=== PATIENT | male | born 1995 | race Caucasian/White ===

== ENCOUNTER 2017-12-27 11:18 | Emergency (ER) | payer MEDICAID, SELFPAY ==
[2017-12-27 11:19] VITALS: BP 167/110; PULSE 70; RESP 18; TEMP 37.1; O2SAT 100; BMI 29.0
[2017-12-27] MEDS: 0.9% Normal Saline 1,000 ML 150 ML IV (12:16)
[2017-12-27] MEDS: proMETHazine 25 MG/ML Syringe 12.5 MG IV (12:16)
[2017-12-27 12:23] LABS: Absolute Lymphocyte Count 1.58 X10^3/ul (0.83-4.51); Absolute Neutrophil Count 4.3 X10^3/uL (2.0-7.7); Basophil# 0.03 X10^3/uL; Basophil% 0.5 % (0-1); Eosinophil# 0.04 X10^3/uL; Eosinophils% 0.6 % (0-5); Hemoglobin 15.6 g/dl (13.0-16.5); Lymphocyte # 1.58 X10^3/ul (4.0); Lymphocyte % 24.7 % (19-41); Mean Corp Hgb Conc 35.5 g/gl (32-36); Mean Corpuscular Hgb 30.4 pg (27.0-32.0); Mean Corpuscular Volume 85.8 fL (80-94); Mean Platelet Vol. 11.8 fl (6.2-12.0); Monocyte# 0.45 X10^3/uL; Neutrophil # 4.29 X10^3/uL (2.7-7.7); Platelet Count 148 K/mm3 (150-450); RBC Distribution Width SD 37.1 fl (35.1-43.9); Red Blood Count 5.13 M/mm3 (4.6-6.2); White Blood Count 6.4 K/mm3 (4.4-11.0)
[2017-12-27 12:27] LABS: POSITIVE COUNT NO; POSITIVE DIFFERENTIAL NO; POSITIVE MORPHOLOGY NO
[2017-12-27 12:36] LABS: Anion Gap 10 (5-15); BUN 11 mg/dL (7-18); BUN/Creat Ratio 11.3 RATIO (10-20); Calcium,Total 9.7 mg/dL (8.5-10.1); Chloride 107 mmol/L (98-107); Creatinine, Serum 0.98 mg/dL (0.70-1.30); EST Glomerular Filtration Rate 104 mL/min (>60); Est Glom Filt Rate - Afr Amer 126 mL/min (>60); Estimated Creatinine Clearance 112.41 ml/min; Glucose 89 mg/dL (74-106); Potassium 3.5 mmol/L (3.5-5.1); Sodium Level 141 mmol/L (136-145)
--- NOTE | 2017-12-27 13:36 | ED.DCSUM_ITS ---
- ER Visit Summary Date of Service: 12/27/17 Chief Complaint: Nausea and vomiting History of Present Illness: The patient is a 22 M reports nausea and vomiting that started this morning. He states he has this happen periodically. He denies fever. He denies pain. Patient does report a history of ADHD. He had seizures as a child. He does admit to marijuana use. Physical Examination: Vital signs on arrival reveal blood pressure 167/110, otherwise unremarkable. Patient's lying in bed no acute distress. Heart is regular rate and rhythm. Lung sounds are clear. Abdomen is soft nontender. Hypoactive bowel sounds are noted. Test Results: CBC and chemistry studies are significant only for platelet count of 148,000, otherwise values are all normal. Emergency Department Course and Treatment: Patient was given IV fluids and Phenergan. On repeat evaluation he feels significantly improved. Is able to tolerate p.o. and ambulated to the restroom and back without difficulty. He will be given a prescription for Phenergan at home as needed. Treatment Plan: [] Disposition: Discharge Impression: Vomiting, improved This note was generated with [employer] dictation software. It may contain incorrect words, spelling, and punctuation that were not noted in review of the chart prior to signing ED Disposition - Plan for ED Patient: Chief Complaint: Nausea/Vomiting Referrals: Oscar Landeros MD [Primary Care Provider] -
--- NOTE | 2017-12-27 13:36 | ED.DEP ---
ED Disposition - Plan for ED Patient: Disposition: Home or Assisted Living Chief Complaint: Nausea/Vomiting Instructions: ED Nausea Vomiting Prescriptions: proMETHazine tablet [Phenergan] 0.5 - 1 tab PO Q6H PRN PRN #10 tablet PRN Reason: Nausea Referrals: Oscar Landeros MD [Primary Care Provider] - As Needed
[2017-12-27 13:44] VITALS: BP 130/83; PULSE 64; RESP 20; O2SAT 98
== END 2017-12-27 13:46 | disposition home or self-care (01) ==
PROVIDERS: Emergency Provider Emergency Medicine; Family Provider Pediatrics; PCP Pediatrics
DX: R11.2 Nausea with vomiting, unspecified (principal); F12.90 Cannabis use, unspecified, uncomplicated; F90.9 Attention-deficit hyperactivity disorder, unspecified type
CPT/HCPCS: 80048; 85025; 96361; 96374; 99284; J7030; A4216

== ENCOUNTER 2018-05-24 11:56 | Emergency (ER) | payer MEDICAID, SELFPAY ==
[2018-05-24 11:57] VITALS: BP 122/84; PULSE 94; RESP 20; TEMP 37.1; O2SAT 97; BMI 23.7
--- NOTE | 2018-05-24 12:35 | ED.DCSUM_ITS ---
- ER Visit Summary Date of Service: 05/24/18 Chief Complaint: Vomiting, dehydration History of Present Illness: The patient is a 22 M with decreased appetite and more vomiting over the past 2 months. Patient went to urgent care. Due to concerns for dehydration he was sent to the ER. Patient has a possible history of anxiety with one prior visit for this. He does admit to marijuana use on a regular basis. There is been no recent change in the amount of marijuana he uses or his supplier in the past 2 months. Physical Examination: Vital signs are unremarkable. Patient sitting upright in bed. He is somewhat anxious. Heart is regular rate and rhythm. Lung sounds are clear. Abdomen is soft and nontender. Hypoactive bowel sounds are noted throughout. Test Results: CBC was a white count of 3.8 with predominant monocytes. Platelet count is slightly low at 119,000. Chemistry studies are unremarkable. Urinalysis normal. Urine tox screen is positive only for cannabinoids. Emergency Department Course and Treatment: Patient is given IV fluids and Phenergan. On repeat evaluation he feels significantly improved. We discussed stopping his drug use. He will be given Phenergan for home. Treatment Plan: [] Disposition: Discharge Impression: Vomiting, improved This note was generated with [employer] dictation software. It may contain incorrect words, spelling, and punctuation that were not noted in review of the chart prior to signing ED Disposition - Plan for ED Patient: Chief Complaint: Nausea/Vomiting Referrals: Oscar Landeros MD [Primary Care Provider] -
[2018-05-24] MEDS: 0.9% Normal Saline 1,000 ML 1000 ML IV (12:56)
[2018-05-24] MEDS: 0.9% Normal Saline 1,000 ML 150 ML IV (12:57)
[2018-05-24] MEDS: proMETHazine 25 MG/ML Syringe 12.5 MG IV (12:57)
[2018-05-24 13:08] LABS: Bacteria 0 SEEN /hpf (None Seen); Mucous, Urine 0 SEEN /hpf (<or=2+); Red Blood Cells-Urine 0 SEEN /hpf (0-5); Squamous Epithelial Cells - UA 0 SEEN /hpf (0-5); White Blood Cells 0 SEEN /hpf (0-5)
[2018-05-24 13:11] LABS: Color, Urine Yellow (Yellow); Glucose, Dipstick Normal (Normal); Ketone-Dipstick Negative (Negative); Leukocyte Esterase-Dipstick Negative /ul (Negative); Nitrite-Dipstick Negative (Negative); Occult Blood-Urine Negative /ul (Negative); Protein-Dipstick Negative (Negative); Urine Bilirubin Dipstick Negative (Negative); Urine Clarity Clear (Clear); Urine Urobilinogen Normal (Normal)
[2018-05-24 13:15] LABS: Absolute Lymphocyte Count 1.21 X10^3/ul (0.83-4.51); Basophil# 0.02 X10^3/uL; Basophil% 0.5 % (0-1); Eosinophil# 0.05 X10^3/uL; Eosinophils% 1.3 % (0-5); Hematocrit 42.5 % (40-54); Hemoglobin 14.9 g/dl (13.0-16.5); Lymphocyte # 1.21 X10^3/ul (4.0); Lymphocyte % 31.8 % (19-41); Mean Corp Hgb Conc 35.1 g/gl (32-36); Mean Corpuscular Volume 88.5 fL (80-94); Mean Platelet Vol. 12.1 fl (6.2-12.0); Monocyte# 0.48 X10^3/uL; Monocyte% 12.6 % (0-10); Neutrophil # 2.04 X10^3/uL (2.7-7.7); Neutrophil % 53.5 % (47-70); Platelet Count 119 K/mm3 (150-450); RBC Distribution Width CV 12.3 % (11.6-14.6); RBC Distribution Width SD 39.8 fl (35.1-43.9); White Blood Count 3.8 K/mm3 (4.4-11.0)
[2018-05-24 13:16] LABS: POSITIVE COUNT NO; POSITIVE DIFFERENTIAL NO; POSITIVE MORPHOLOGY NO
[2018-05-24 13:25] LABS: Anion Gap 7 (5-15); BUN 11 mg/dL (7-18); BUN/Creat Ratio 11.9 RATIO (10-20); Calcium,Total 9.3 mg/dL (8.5-10.1); Chloride 105 mmol/L (98-107); Creatinine, Serum 0.93 mg/dL (0.70-1.30); EST Glomerular Filtration Rate 110 mL/min (>60); Est Glom Filt Rate - Afr Amer 133 mL/min (>60); Estimated Creatinine Clearance 118.46 ml/min; Glucose 80 mg/dL (74-106); Potassium 4.1 mmol/L (3.5-5.1); Sodium Level 140 mmol/L (136-145)
[2018-05-24 13:33] LABS: Amphetamine Urine VISTA NEGATIVE (<1000 ng/mL); Barbiturate Urine VISTA NEGATIVE (< 200 ng/mL); Benzodiazepine Urine VISTA NEGATIVE (< 200 ng/mL); Cocaine Urine VISTA NEGATIVE (< 300 ng/mL); Ecstacy Urine VISTA NEGATIVE (< 500 ng/mL); Methadone Urine VISTA NEGATIVE (< 300 ng/mL); PCP Urine VISTA NEGATIVE (< 25 ng/mL); THC Urine VISTA POSITIVE (< 50 ng/mL); Vista UDS pH Range 7
--- NOTE | 2018-05-24 14:28 | ED.DEP ---
ED Disposition - Plan for ED Patient: Disposition: Home or Assisted Living Chief Complaint: Nausea/Vomiting Instructions: ED Nausea Vomiting Prescriptions: proMETHazine tablet [Phenergan] 25 mg PO Q6H PRN PRN #14 tablet PRN Reason: Nausea Referrals: Oscar Landeros MD [Primary Care Provider] - 1 Week
[2018-05-24 14:40] VITALS: PULSE 86; RESP 16; O2SAT 99
== END 2018-05-24 14:41 | disposition home or self-care (01) ==
PROVIDERS: Emergency Provider Emergency Medicine; Family Provider Pediatrics; PCP Pediatrics
DX: R11.2 Nausea with vomiting, unspecified (principal); F12.90 Cannabis use, unspecified, uncomplicated
CPT/HCPCS: 80048; 80307; 81001; 85025; 96361; 96374; 99283; J7030; A4216

== ENCOUNTER 2019-06-03 17:25 | Emergency (ER) | payer MEDICAID, SELFPAY ==
[2019-06-03 17:26] VITALS: BP 169/114; PULSE 80; RESP 22; TEMP 36.6; O2SAT 98; BMI 23.5
[2019-06-03 17:56] LABS: Absolute Lymphocyte Count 3.12 X10^3/uL (0.83-4.51); Absolute Neutrophil Count 2.9 X10^3/uL (2.0-7.7); Basophil# 0.06 X10^3/uL; Basophil% 0.9 % (0-1); Eosinophils% 1.5 % (0-5); Hematocrit 46.2 % (40-54); Hemoglobin 15.8 g/dL (13.0-16.5); Lymphocyte # 3.12 X10^3/ul (4.0); Mean Corp Hgb Conc 34.2 g/dL (32-36); Mean Corpuscular Hgb 31.1 pg (27.0-32.0); Mean Corpuscular Volume 90.9 fL (80-94); Mean Platelet Vol. 11.4 fl (6.2-12.0); Monocyte# 0.53 X10^3/uL; Monocyte% 7.8 % (0-10); NRBC Flagged by Analyzer 0 % (0-5); Neutrophil # 2.94 X10^3/uL (2.7-7.7); Neutrophil % 43.4 % (47-70); Platelet Count 180 K/mm3 (150-450); RBC Distribution Width CV 11.9 % (11.6-14.6); RBC Distribution Width SD 39.8 fl (35.1-43.9); Red Blood Count 5.08 M/mm3 (4.6-6.2); White Blood Count 6.8 K/mm3 (4.4-11.0)
--- NOTE | 2019-06-03 17:57 | ED.DCSUM_ITS ---
- ER Visit Summary Date of Service: 06/03/19 Chief Complaint: Possible seizure History of Present Illness: The patient is a 23 M who presents with possible seizure that occurred today. Patient states he was playing virtual reality game for approximately 1 hour. Patient states that later in the day. Patient states he remembers blacking out. Patient states he was confused when he woke up. Patient states he was having some generalized fatigue and aches after he woke up. Patient denies biting his tongue. Patient denies any incontinence of urine or stool. Patient states he did have some generalized paresthesias that have resolved. Patient states he also had some shortness of breath after this po ssible seizure that has since resolved. Physical Examination: Vital signs are stable except for slightly elevated blood pressure of 169/114 and a mild tachypnea of 22. Patient is afebrile. Patient is in no acute distress. Oral mucosa is pink and moist. Neck is supple. Trachea is midline. There is no JVD noted. Heart was regular rate and rhythm. Lungs are clear and equal bilateral. Abdomen is soft. Bowel sounds are normal. There is no tenderness. There is no guarding noted. Skin is warm dry. Cranial nerves II through XII are intact. There are no focal motor or sensory deficits noted. The remaining physical exam is within normal limits. Test Results: CBC and basic metabolic profile were obtained and were normal. Emergency Department Course and Treatment: Patient was given IV fluids. Patient is feeling better on reevaluation. Patient was instructed to follow-up with his primary care physician in 5 to 7 days. Patient was instructed to not drive until he follows up with his primary care physician. Patient understood and was agreeable with the plan. All questions were answered. Disposition: Discharge home Impression: 1. Syncopal episode 2. Possible seizure This note was generated with [employer] dictation software. It may contain incorrect words, spelling, and punctuation that were not noted in review of the chart prior to signing ED Disposition - Plan for ED Patient: Disposition: Home or Assisted Living Diagnosis: Syncope Instructions: SEIZURE, Recurrent [Adult] Referrals: Oscar Landeros MD [STAFF PHYSICIAN] - 3-5 Days Additional Instructions: Do not drive or operate machinery until you follow-up with your primary care physician
[2019-06-03] MEDS: 0.9% Normal Saline 1,000 ML 1000 ML IV (18:05)
[2019-06-03 18:07] LABS: Anion Gap 4 (5-15); BUN 23 mg/dL (7-18); Calcium,Total 9.4 mg/dL (8.5-10.1); Chloride 101 mmol/L (98-107); Creatinine, Serum 1.21 mg/dL (0.70-1.30); EST Glomerular Filtration Rate 80 mL/min (>60); Est Glom Filt Rate - Afr Amer 97 mL/min (>60); Estimated Creatinine Clearance 90.29 ml/min; Glucose 129 mg/dL (74-106); Potassium 4.3 mmol/L (3.5-5.1); Sodium Level 135 mmol/L (136-145)
[2019-06-03 19:42] VITALS: BP 122/62; PULSE 86; RESP 20; O2SAT 98
== END 2019-06-03 19:43 | disposition home or self-care (01) ==
PROVIDERS: Emergency Provider Emergency Medicine
DX: R55 Syncope and collapse (principal); M54.2 Cervicalgia; R06.00 Dyspnea, unspecified; F12.90 Cannabis use, unspecified, uncomplicated
CPT/HCPCS: 80048; 85025; 96360; 99285; J7030; A4216

== ENCOUNTER 2019-07-13 09:00 | Outpatient (RCR) | payer MEDICAID, SELFPAY ==
--- NOTE | 2019-07-13 09:10 | BH.SGPN.GN ---
Behaviors/Verbalizations/Mental Status: [] Eye contact is good. Motor activity is appropriate. Appearance is casual. Speech is Appropriate. Mood is anxious. Affect is congruent. Thoughts are linear and logical. No evidence of psychosis. Reviewed daily check in sheet and no reports of suicidal ideations or intent. Client Response/Progress/Benefit: [] Pt was an active participant in group discussion. This was pt's first day in IOP. He shared that he is here to work on his depression, anxiety, and anger. Shared that increased irritability and difficulty controlling his mood led to a suspension from work recently. He discussed his childhood and the impact that his father's anger and behaviors had on him. Reported limited support and friends. No progress noted. Group welcomed him which was beneficial. Will continue in IOP to prevent decompensation, stabilize mood, psych eval, and medication mgmt. Narrative Note: []
--- NOTE | 2019-07-13 10:07 | BH.SGPN.GN ---
Behaviors/Verbalizations/Mental Status: []Client alert and oriented, casually dressed and groomed. Eye contact good. Motor activity appropriate. Speech rapid, interrupting at times. Affect full, mood hypomanic, energetic. Thoughts linear, logical, no signs of hallucinations or delusions. Client Response/Progress/Benefit: []Client active participant during group discussion AEB client contributing to discussion. Client commented on the quote and shared ?we need our own coping skills when our supports aren?t there.? Client reported he has manipulated his supports by ?telling them things were worse than they were? because client wanted their attention. Client helped group brainstorm potential consequences of not having a support system. Group identified benefits of social support as building trust, less anxiety, less loneliness, different perspective, sense of purpose, resources, hope, and accountability. Client stated one cannot only rely on supports, though, one also needs to have internal coping skills. Client was engaged during the group activity and was providing positive encouragement. Appeared to benefit from gaining awareness of barriers that keep people from seeking social support as well as identifying the benefits of increasing support. Client?s first day in IOP. Will continue tx to prevent decompensation of mood symptoms, increase healthy coping skills, and maintain safety.
--- NOTE | 2019-07-13 11:08 | BH.SGPN.GN ---
Behaviors/Verbalizations/Mental Status: [Pt alert and oriented, eye contact good, casually dressed, motor activity appropriate, speech normal rate and tone, mood agitated, euthymic, congruent affect, thoughts linear and intact, no evidence of delusions or hallucinations.] Client Response/Progress/Benefit: [Client active participant AEB client contributing to discussion, listened attentively to others. Client worked with the group to make connections between barriers faced in the challenge activity and strategies for managing these barriers with utilizing social supports in daily life. Client reflected that a personal barrier in using his current supports is pushing people away or damaging trust out of anger. Client contributed to discussion about the different types of support and benefits different types of support can provide. Client worked with the group to identify strategies for improving development of new supports and better utilization of current supports. Client identified he would like to improve personal relationships by reaching out more to supports, asking for help, and talking honestly about his emotions because he would be able to improve overall emotion regulation as a result. Client seemed to benefit from identifying a type of support she would like to improve upon and creating actionable steps to promote follow-through. Client to continue IOP level of care to prevent decompensation, increase use of healthy supports, and implementing mood management skills.] Narrative Note: []
--- NOTE | 2019-07-13 13:52 | BH.MTP ---
Master Treatment Plan - Patient Information Program Physician:: Dr. Ginny Ackerman Primary Therapist:: VERITO Frazier - Psychiatric Diagnoses Psychiatric Diagnoses:: Bipolar disorder, not otherwise specified (F 31.9; generalized anxiety disorder; ADHD; marijuana and alcohol use disorders Diagnosis Code(s):: F 31.9 - Estimated LOS Estimated LOS (in weeks):: 6 Problem/Goal #1 - Problem/Goal #1 Stated Goal:: Stabilize anxiety level while increasing ability to function on daily basis through Intensive Outpatient Services as evidenced by reduction on DSM 5 anxiety scales. Description of Barriers: Client reports history of trauma and difficulties in managing emotions that continues to impact client. Reports from a young age he has learned to suppress his feelings until point of crisis which often results in anger outbursts via verbal outbursts, property damage, and arguments with supports. Client reports his relationship with his mother and ex has been strained as a result of poor emotion regulation and that this has impacted his ability to see his son as a result. Reports hx of polysubstance use behaviors and currently endorses using marijuana and alcohol however denies any other substance use. Current stressors including; financial stress, lack of social support, family stress, hx of impulsivity, feelings of hopelessness, worthlessness, difficulties managing his emotions, and lack of concentration. Client reports limited awareness of warning signs and triggers and difficulties in preventing himself from escalating when triggered. Client endorses numerous distorted thoughts that reinforce mental health symptoms and cause interpersonal relationship issues. Functional Impact: Client is a 23-year-old male with a history of Bipolar NOS, anxiety, depression, PTSD, anger management problems, and polysubstance use disorder. Client was referred to IOP by family due to worsening mood symptoms resulting in erratic behaviors, increased hopelessness/helplessness, depression, passive thoughts of , impulsiveness, and increased irritability. Due to intensity of mood symptoms, pt has been limited in amount of time able to see his son. Pt additionally reports he has experienced occupational issues due to lashing out in anger at work. Additionally, identified worsening depression and anxiety symptoms resulting in decreased use of supports, avoidance, increased marijuana use when feeling anxious, and increased panic sx. Reports he does not have consistent transportation which is an additional barrier. Reports history of lack of follow through. Pt has hx of armando and depression. Client currently endorses a depressed mood, lack of energy, lack of concentration, lack of motivation, avoidance behaviors, emotional dysregulation, irritability, isolation and inconsistent sleep. Client's symptoms are interfering with his social, occupation, and familial functioning. Goal Relevant Strengths/Supports: Client presents as kind, empathic, personable, and motivated to improve his ability to understand and manage intense emotions and anxiety. Client has shown ability to bounce back from adversity in the past which presents as a protective factor for treatment. Client has been in mental health treatment before and reported it was helpful but that he was not motivated to apply skills learned at the time however feels more motivated to do so now. - Objectives Objective #1 Stated Objective: Client will identify 2-3 anxiety triggers, physiological warning signs, and 2 coping skills to use when feeling anxious Interventions: Through individual and group counseling will provide patients with education on coping skills for anxiety and warning signs/triggers to anxiety. Discharge Criteria: Pt will be able to identify 2-3 triggers to anxiety, physiological warning signs of anxiety, and 2-3 coping skills to decrease anxiety. Target Date: 08/10/19 Review Date: 08/24/19 Problem/Goal #2 - Problem/Goal #2 Stated Goal:: Client will improve mood management and reduce impulsive behaviors, feelings of hopelessness, and anger outbursts due to Bipolar Disorder through Intensive Outpatient Program. Description of Barriers: Client reports history of trauma and difficulties in managing emotions that continues to impact client. Reports from a young age he has learned to suppress his feelings until point of crisis which often results in anger outbursts via verbal outbursts, property damage, and arguments with supports. Client reports his relationship with his mother and ex has been strained as a result of poor emotion regulation and that this has impacted his ability to see his son as a result. Reports hx of polysubstance use behaviors and currently endorses using marijuana and alcohol however denies any other substance use. Current stressors including; financial stress, lack of social support, family stress, hx of impulsivity, feelings of hopelessness, worthlessness, difficulties managing his emotions, and lack of concentration. Client reports limited awareness of warning signs and triggers and difficulties in preventing himself from escalating when triggered. Client endorses numerous distorted thoughts that reinforce mental health symptoms and cause interpersonal relationship issues. Functional Impact: Client is a 23-year-old male with a history of Bipolar NOS, anxiety, depression, PTSD, anger management problems, and polysubstance use disorder. Client was referred to [facility] by family due to worsening mood symptoms resulting in erratic behaviors, increased hopelessness/helplessness, depression, passive thoughts of , impulsiveness, and increased irritability. Due to intensity of mood symptoms, pt has been limited in amount of time able to see his son. Pt additionally reports he has experienced occupational issues due to lashing out in anger at work. Additionally, identified worsening depression and anxiety symptoms resulting in decreased use of supports, avoidance, increased marijuana use when feeling anxious, and increased panic sx. Reports he does not have consistent transportation which is an additional barrier. Reports history of lack of follow through. Pt has hx of armando and depression. Client currently endorses a depressed mood, lack of energy, lack of concentration, lack of motivation, avoidance behaviors, emotional dysregulation, irritability, isolation and inconsistent sleep. Client's symptoms are interfering with his social, occupation, and familial functioning. Goal Relevant Strengths/Supports: Client presents as kind, empathic, personable, and motivated to improve his ability to understand and manage intense emotions and anxiety. Client has shown ability to bounce back from adversity in the past which presents as a protective factor for treatment. Client has been in mental health treatment before and reported it was helpful but that he was not motivated to apply skills learned at the time however feels more motivated to do so now. - Objectives Objective #1 Stated Objective: Client will identify his specific physical and emotional warning signs and triggers for anger and learn at least 2-3 healthy ways to calm and manage anger, as shown by reduced DSM-5 scores. Interventions: Therapist will provide psychoeducation on anger via worksheets, educational videos, and individual sessions to increase pt understanding of underlying factors contributing to anger as well as warning signs and triggers commonly associated with irritability. Through individual therapy and group work will help client explore different anger management strategies and tools for increasing self-regulation. Discharge Criteria: Pt will have reached goal when able to identify 2-3 personal warning signs, triggers, and factors impacting ability to regulate emotions and report reduced anger sx due to implementing 2-3 calming and emotion regulation skills. Progress will be shown by reduction in irritability on DSM-5 scores. Target Date: 08/24/19 Review Date: 08/10/19 Objective #2 Stated Objective: Client will learn and implement 2-3 effective communication skills during times of conflict to empower client to communicate thoughts and feelings rather than supress emotions or escalate to crisis. Interventions: Therapist will teach client effective communication and conflict resolution skills and will provide homework for client to practice communication skills outside of sessions. Discharge Criteria: Client will have achieved this objective when reports experiencing increased ability to communicate effectively with supports during times of disagreement or conflict without shutting down or escalating to point of crisis. Target Date: 08/24/19 Review Date: 08/10/19
--- NOTE | 2019-07-13 13:53 | BH.COMM ---
Communication Note - Communication with Client Communication Note: Completed intake paperwork with client today. Completed the [place] Suicide Severity Scale (CSSR-S) Lifetime Recent to assess for suicidal risk. Client reports a history of 1 prior suicide attempt approximately 2 months ago in which client attempted to choke himself. This attempt was interrupted by self, as client reports he began to think of his son growing up without a father and aborted the denies any other history of self-injurious behaviors. Client reports history of preparatory behavior on one occasion approximately 2 years ago in which client reports writing a suicide note that was later found by his grandmother. Client denies any other preparatory or interrupted attempts. Client reported in the past month he has not had any wishes of , active suicidal ideations, plan, or intent. Client admits to a history of suicidal ideations with plan and access to methods but reports that his son and hopes for the future have kept him from following through on these thoughts. Client reports these thoughts have not occurred in two months. Client reported that in the past his wishes of have lasted for several hours but that with difficulty they are controllable. Client reported his son as primary reason to live. Per the CSSR-S client has a high risk for suicide given recent interrupted attempt. Client's suicidal lethality will be continued to be monitored throughout the program. Client willing to plan for safety. Client denies active SI, plan, or intent in the last month. Denies access to any weapons or stockpiles of medication. Client feels able to maintain safety.
--- NOTE | 2019-07-15 09:54 | BH.COMM_ITS ---
Communication Note - Communication with Client Communication Note: Pt was scheduled to attend IOP today and meet with psy chiatrist. He did not show. Therapist called and spoke to patient stating he was unable to make it to IOP today. Did not meet with psychiatry and will not be able to till 07/22/19.
--- NOTE | 2019-07-20 09:03 | BH.SGPN.GN ---
Behaviors/Verbalizations/Mental Status: [Eye contact is good. Motor activity is appropriate, some restlessness. Appearance is casual. Speech is Appropriate. Mood is depressed, anxious. Affect is constricted. Thoughts are linear and logical. No evidence of psychosis. Reviewed daily check in sheet and reports suicidal ideation at a rate of 2/5. Denies current plan or intent. This therapist will further assess for risk and safety plan with pt prior to end of IOP session on this date.] Client Response/Progress/Benefit: [Pt was receptive of session, actively listening throughout and providing some input throughout. Emotion for today is ?stressed? and he indicated that this was due to ongoing difficulties in regulating his emotions and managing current stressors in healthy ways. Pt appeared to benefit from the supportive feedback and suggestions provided by the group. Pt shared that despite current increased stress levels, he has been able to experience some mental health wins. Identified current wins as: getting through the entire weekend without any physical confrontations. Pt indicated this has been a problem for him recently and that he feels much more relieved to know he is capable of going through a whole weekend without escalating to point of crisis. Additional win identified as making small steps towards setting a boundary with his father, though declined to elaborate further. Pt displaying progress in levels of engagement and ability to begin internalizing tx materials discussed. Recommended continued tx to prevent decompensation, continue to increase emotion regulation, and further improve anxiety and anger management.] Narrative Note: []
--- NOTE | 2019-07-20 10:42 | BH.PSA ---
Past Psychiatric History - Treatment Hx Treatment History: Started at age 10 at [facility]. Couple psychiatric stays due to anger and would manipulate self out of situation. Fit setting really well. Never put effort into it before. Didn't realize how much self-care was important. Substance Use - Substance Substance Use Type: Alcohol - daily, 3-4 tall boys of vodka mixers 8%-14%., Benzodiazepines - xanax, Hallucinogens - acid to DMT. last use last week, mushrooms, Marijuana - daily, half ounce. since 18 as much as possible, Opiates, Prescribed - percocet, last year, Other - smoke CBD stuff. - Specific Drugs What specific drugs have you used?: seeing things that aren't there, paranoid, people judgng me or out to get me,
--- NOTE | 2019-07-20 15:12 | BH.MDN ---
Multi-Disciplinary Note - Note 60-min Individual Time Started:: 10:42 Date: 07/20/19 Purpose of session/treatment goals addressed:: Purpose of this session was to establish rapport with pt, gather additional information regarding pt current functioning, symptoms, and stressors impacting mental health. Additionally assessed for risk as pt indicated recent SI on daily symptom tracker and completed Safety Plan. Other topics included: development of treatment goals. Eye Contact:: Good Motor Activity:: Appropriate Appearance:: Casual Speech:: Pressured Mood:: Anxious Affect:: Congruent Thoughts:: Linear, Logical, No evidence of hallucinations/delusions noted Staff Interventions:: Therapist asked open ended and furthering questions to gather additional information regarding pt's symptoms, current stressors, as well as events leading to IOP admission. Worked with client to explore treatment goals to address in IOP tx. Therapist used strengths perspective to build rapport and help pt identify personal positives and resilience factors. Therapist used empathic responses to provide emotional validation. Further assessed for risk as pt indicated SI as a 2/5 during daily check-in. Applied IL techniques to explore coping strategies that have helped in the past and complete a Safety Plan. Provided psychoeducation on impact of substance use on mental health and application of healthy coping skills. Client Response:: Pt open to meeting with this therapist and remained actively engaged throughout session. He reports that his first day in IOP went well and that due to transportation issues was unable to get to [facility] group more than once last week. Pt indicates he had planned to walk to tx however has found this is much further than he had expected and was hoping the hispital would be able to assist in providing transportation. Therapist will contact transportation services in order to have this arranged. Pt indicated that since beginning the program, he is beginning to better understand how his current thoughts, feelings, and behaviors are impacting his mental health and ability to regulate his emotions. Pt shared that he has been struggling more with his mental health recently and noted experiencing worsening depression. Pt did well to identify triggers contributing to worsening depression which included isolation, decreased contact with his ex and their son, guilt, and feeling as though he lacks a strong sense of purpose. Pt shared that these factors as well as difficulties in managing symptoms of armando and anger is what led to IOP admission. Pt went on to describe spending much of his time over the past week either at work, sleeping, or playing video games. Displayed fair insight into the effects of remaining isolated and indoors on his mental health. He went on to indicated that he experiences his emotions he feels them very intensely and explained I dive right into them and recently I've been curling up in bed and holding hands with depression. Shared an increase in suicidal ideation over past week as a result of ruminating thoughts and guilt regarding the effects on his life of ongoing difficulties in managing anger and regulating his emotions. Pt shared that his issues with controling his anger response resulted in the end of his relationship and his ex havin reservations about pt seeing their son. Pt noted I don't really want to , but sometimes I just hate myself and my life so much that I don't want to be around anymore. Indicates no current plan or intent and expressed his son and ex continue to be protective factors for him. Willing to work with this therapist on completing a Crisis Safety Plan. Noted that although they have a tense relationship, he can rely on his mother or ex in times of crisis. Additionally, pt did well to identify copnig skills he can use when feeling increasingly depressed. Skills identified included: going for a walk, using his crystals, watching something funny, and music. Discussed pros and cons of continued substance use and impact of marijuana on mental health and ability to cope. Pt reports willingness to begin thinking about reducing frequency of use. Plans ot attend IOP on 07/22 to meet with psychiatry as well. Risks/Concerns:: Pt scores for SI on daily symptom tracker were rated as 2/5. Pt denies any active SI, plan, or intent at time of session. Future oriented and reports his son as major motivation for living. Willing to complete Safety Plan and indicates ability to maintain safety at this time. Pt aware of and willing to utilize the local crisis resources should he feel unable to maintain safety at any time. Progress Toward Goals/Plan:: Pt's second day of IOP, therefore no progress currently. Reports he is motivated to make improvements for his mental health and relationships with supports. Pt endorses a depressed and anxious mood, negative thinking, anhedonia, passive thoughts of , irritability, and limited supports. Identified goals for treatment as: improve ability to cope withanger, improve self-esteem, improve emotion regulation skills, and decrease depression. Will continue IOP to prevent decompensation, improve daily functioning, and increase mood stability. Time Stopped:: 12:10
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
--- NOTE | 2019-07-22 11:24 | BH.SGPN.GN ---
Behaviors/Verbalizations/Mental Status: [Client alert and oriented, casually dressed and appropriately groomed. Eye contact good. Motor activity appropriate. Speech within normal limits. Affect congruent, mood euthymic. Thoughts linear, logical, no signs of hallucinations or delusions. ] Client Response/Progress/Benefit: [Pt attentive throughout and actively participated in both experiential activity and discussion regarding SMART goal setting. Taking notes throughout. Pt engaged in using SMART goal criteria to create own mental health goal. Identified goal as: ?Decreasing negative self-talk by saying at least two positive affirmations daily?. Pt reported this goal will benefit him by improving his positive energy around others. Pt identified potential barriers to accomplishing goal to include: discouragement, not believing affirmations, forgetting, and shame/fear. Pt appeared to experience some difficulties in identifying solutions to overcome barriers. Able to identify some solutions with assistance and reports he will begin challenging himself to have a more positive attitude and remind himself of his motivations. Pt seemed to benefit from identifying a SMART goal and coming up with strategies to overcome potential barriers. Progress noted in pt ability to create a small relevant goal aimed at improving mental health symptoms and self-esteem. Pt to continue IOP to increase healthy coping skills, improve emotion regulation, and prevent decompensation.] Narrative Note: []
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
--- NOTE | 2019-07-22 15:29 | BH.DR.ITP ---
Initial Treatment Plan - Patient Information Visit Information: ADMISSION DATE: EXPECTED LOS: 4-6 weeks - Problems/Symptoms Problem #1:: Mood lability Symptom:: Depression, anger issues, rumination Problem #2:: ANxiety Symptom:: worry, rumination, panic attacks
--- NOTE | 2019-07-28 16:46 | BH.MDN ---
Multi-Disciplinary Note - Note 60-min Individual Time Started:: 09:36 Date: 07/28/19 Purpose of session/treatment goals addressed:: Purpose of this session was to asses current symptoms, and stressors impacting mental health, as well as progress towards treatment goals. Another purpose was to discuss self-care and concerns regarding lack of sleep. Additional topics: Anger management Eye Contact:: Good Motor Activity:: Restless Appearance:: Casual Speech:: Pressured, Tangential Mood:: Anxious, Depressed Affect:: Full, Labile Thoughts:: Linear, Logical, Racing, No evidence of hallucinations/delusions noted Staff Interventions:: Therapist asked open ended and furthering questions to gather additional information regarding pt's symptoms, current stressors, and treatment progress. Therapist used empathic responses and supportive feedback to provide emotional validation. Provided psychoeducation on hierarchy of needs and emotional stability. Reviewed self-care skills with pt. Applied GA techniques to promote change behaviors. Client Response:: Pt receptive of session, engaged throughout. Appearing to be overwhelmed /anxious AEB restlessness and difficulties in processing/verbalizing his thoughts. Pt expressed experiencing racing thoughts at time of session and indicated beliefs this is due to not sleeping in the past 24 hours. Shared feeling emotionally vulnerable as well which was further evidenced by Pt being emotionally labile throughout session. He had difficulties with remaining on topic and often jumped from subject to subject, expressed not hearing therapist responses or prompts due to difficulties in concentrating, and ranged between crying, laughing, and anger throughout discussion. Appeared aware of disorganized thought patterns and behavior and inquired as to whether his current characteristics were indicative of a manic episode. Pt and therapist explored further and discussed his usual symptoms of armando. He noted usually making impulsive decisions and becoming more irritated which he has not noted though has not been around others outside of Group recently. Pt shared that he is scheduled for work this afternoon and expressed fear that he will not be able to regulate his emotions and is more likely to become angry and aggressive or engage in impulsive behaviors given current emotional state. Pt shared wanting to call off sick and get some sleep so he does not escalate or make unhealthy choices;however, notes fear he will be reprimanded if he does so. Additionally, shared needing the money and is hesitant to call off for that reason. Receptive of discussing importance of meeting basic needs in making mental health progress and open to completing decisional balance on pros/cons of taking a mental health self-care day. Pt reported that although he needs the money, the risks of reacting irrational and out of anger are not worth it and Pt reported plans to go home to sleep and care for his own basic needs instead. Shared that he will take a shower, listen to music, and attempt to sleep before attending group tomorrow. Will discuss current sx with psychiatrist tomorrow. Risks/Concerns:: None noted. Denies SI, plan, or intent as of this date 07/20/19. Future-oriented and indicates plans to go home and sleep and attend IOP tx tomorrow. Progress Toward Goals/Plan:: Progress limited due to inconsistent attendance and diffiiculties in applying skills learned in IOP tx outside group environment. Pt continues to report sx consistent with depession and anxiety. Pt reports emotional instability and difficulties with regulation resulting in anger outbursts at work and with hs mother. Pt reports continued isolation and avoidance. Was receptive of identifying skills for reducing isolation. Pt willing to attempt more consisntly reaching out to supports and practicing calming skills. Recommended continue IOP tx to reduce anger and depression, improve emotional stability, and prevent decompensation. Time Stopped:: 10:45
--- NOTE | 2019-07-29 09:06 | BH.SGPN.GN ---
Behaviors/Verbalizations/Mental Status: [Client alert and oriented, casual dress, hygiene tended to. Eye contact fair to good. Motor activity appropriate. Speech within normal limits. Affect constricted, mood depressed and anxious. Thoughts linear, logical, no signs of hallucinations or delusions. Reviewed client?s symptom tracker, self-reports suicidal ideation as a 3/5 however denies plan or intent. This appears to be pt baseline. Pt met with IOP program psychiatrist and no immediate concerns were reported regarding safety. ] Client Response/Progress/Benefit: [Pt was an active participant in group discussion, providing input and openly processing with the group. Emotion for today is content as pt indicated successfully getting a few hours of sleep yesterday and is feeling much better this morning as a result. Pt initially struggled to identify two current mental health ?wins? or positives and indicated ?I haven?t done much since yesterday so I don?t really know what to say?. Was able to identify positives when provided with encouragement and guidance. Mental health positives included plans to begin piano lessons as a way of finding new healthier hobbies. Additional win identified as using positive self-talk to remind himself of the benefits of coming to IOP tx and encourage him to get here this morning rather than remain in bed. Pt noted that ongoing sleep issues continue to be a stressors as well as limited supports. He appeared to benefit from the structured supportive environment and noted feeling increased ability to connect with others in the program. Progress noted in pt ability to make healthy self-care decisions when experiencing dysregulation. Pt recommended continued IOP tx to continue to promote change behaviors, increase consistent skill application and emotion regulation, as well as prevent decompensation.] Narrative Note: []
--- NOTE | 2019-07-29 10:01 | BH.COMM ---
Communication Note - Communication with Client Communication Note: Pt met with psychiatrist today regarding medications. Refer to that note. Pt has been struggling recent sleep. After first group pt asked to leave early today to try tp sleep before he has to walk to work this afternoon. Allowed pt to leave IOP early.
--- NOTE | 2019-07-29 12:02 | PCM.BH.PN ---
Progress Note Progress Note: History of Present Illness/Interim History: [] Patient is a 23-year-old single male with a history of bipolar disorder and ADHD who was referred to the [facility] IOP program and is seen in follow-up. He feels that his mood is still not good. He describes himself is still irritable with passive suicidal thoughts on a regular basis. These are fleeting and he has no plan or active suicidal ideation. He also still gets passive homicidal ideation only when he is angry. He has had this for many years. He has not used any alcohol since he last saw me 1 week ago. He is only taken the lithium I prescribed him for the past 4 days. He is tolerating it well but has not had time to experience any improvement. His sleep remains somewhat poor. He was awake for 27 hours over the weekend at one point but he had 4 hours of sleep last night. He took 50 mg of the Seroquel I prescribed for him but it and he slept that night but it made him too groggy so he quit taking it. On discussion he says that taking only 25 mg of Seroquel was okay and did not make him too drowsy the next day so he agrees to try taking 125 mg Seroquel at bedtime. He has not used any marijuana since her last appointment. He is only using occasional CBD oil. He feels that he is benefiting from the IOP program and is learning valuable skills to help him deal with the stresses in his life. Current Psychiatric Medications: [] [place] carbonate ER 300 mg (patient started this only 4 days ago). Mental Status Examination: [] 23-year-old male who appears normal for stated age. He has minimal psychomotor agitation today. He has good eye contact and his speech is normal rate and rhythm and fluent with no pressure. He is casually dressed and groomed with good hygiene. His mood is depressed and he describes it as labile although it was not labile during the interview. Affect is full. Thought processes or are organized and goal-directed. Thought content: Fleeting suicidal ideation with no plan. He admits to fleeting passive homicidal ideation only when angry. No evidence of hallucinations or delusions. Judgment is limited but some present. Insight: Some present. Impulsivity moderate Diagnoses: [] [place] I: [] Bipolar 2 disorder (F 31.81); generalized anxiety disorder; ADHD; history of marijuana and alcohol use disorders. [place] II: [] Cluster B traits [place] III: [] Negative [place] IV:[]] Primary support and job issues Plan: [] She will continue the IOP program at [facility] as the support, education, structure, group and individual therapy will hopefully prevent exacerbations of the patient's symptoms. He felt safe during the interview and if at any time he does not feel safe he agrees to notify us at the IOP program or go to the emergency room. The risks, side effects, possible complications of the medication were discussed with the patient and he understands and accepts these. He agrees to increase his lithium carbonate ER to 2 tablets or 600 mg p.o. at bedtime. The patient is encouraged to maintain sobriety from marijuana alcohol and all other substances. I will see the patient in 2 weeks. In addition he will continue the quetiapine at 25 mg p.o. nightly in the hopes that this with the lithium will help improve his sleep. I will order a renal panel, TSH and lithium level at the next visit.
--- NOTE | 2019-08-06 16:22 | BH.COMM ---
Communication Note - Communication with Client Communication Note: Pt cancelled IOP group for this date however indicated plans to maintain scheduled individual appointment. Therapist contacted pt to remind his of scheduled session, however pt indicated he would no longer be able to meet with this therapist and would like to reschedule for next week.
[2019-09-02 09:06] VITALS: BP 104/73; PULSE 72; RESP 14
== END 2019-07-30 23:59 ==
LOC: BHIOP 09:00
PROVIDERS: Family Provider Family Medicine; PCP Family Medicine; Referring Provider Psychiatry & Neurology Psychiatry; Visit Provider Psychiatry & Neurology Psychiatry
DX: F31.81 Bipolar II disorder (principal); F41.1 Generalized anxiety disorder; F90.9 Attention-deficit hyperactivity disorder, unspecified type; F10.10 Alcohol abuse, uncomplicated; F12.10 Cannabis abuse, uncomplicated
CPT/HCPCS: 90792; 99214; H0035; H2012; H2020; 90837

== ENCOUNTER 2019-07-31 09:00 | Outpatient (RCR) | payer MEDICAID, SELFPAY ==
--- NOTE | 2019-07-31 09:05 | BH.SGPN.GN ---
Behaviors/Verbalizations/Mental Status: []Client alert and oriented, casually dressed and groomed. Eye contact good. Motor activity appropriate. Speech within normal limits. Affect full, mood euthymic. Thoughts linear, logical, no signs of hallucinations or delusions. Reviewed client?s symptom tracker, no risk for suicidal ideation, plan, or intent as of today. Client Response/Progress/Benefit: []Pt was an engaged participant in group discussion, providing input and openly processing with the group. Emotion for today is sad and energized. Pt identified a mental health positive as getting himself involved again in [employer] to increase his self-discipline and being involved in something he enjoys doing. Pt identified additional positive as reaching out to various people in his life to apologize for past choices he has made. Pt identified current stressor is having to work on so he won't get to spend time with his grandma, whom pt stated her health is declining significantly. Progress noted in pt applying healthy skills outside of tx environment. Continued IOP tx recommended to stabilize moods, improve emotional regulation, and prevent decompensation. Narrative Note: []
--- NOTE | 2019-07-31 10:15 | BH.SGPN.GN ---
Behaviors/Verbalizations/Mental Status: [Client alert and oriented, casually dressed and appropriately groomed. Eye contact good. Motor activity appropriate. Speech within normal limits. Affect congruent, mood euthymic. Thoughts linear, logical, no signs of hallucinations or delusions] Client Response/Progress/Benefit: [Client an active participant in group AEB providing relevant input, asking questions, actively listening, as well as taking notes throughout. Group worked together to identify barriers to making changes or taking action in their lives which included: fear of the unknown, guilt, catastrophizing, shame, pride, fear of leaving comfort zone, denial of need to change, and lack of motivation. Group also identified the benefits of change which included; improved relationships, increased trust, emotion regulation, increased confidence, improved ability to manage stressors, and personal growth. Client identified areas he would like to take back control over to include: relying on other?s opinions, healthy communication, anger management, and improved follow through on personal goals. Benefited from group through increased awareness of personal areas he wants to improve and benefits to taking action towards mental wellness. Progress noted in personal reflection of areas he would benefit from making changes for his mental health. Pt is recommended continued IOP level of care to improve anger and anxiety management, improve ability to cope with stressors, and prevent decompensation.] Narrative Note: []
--- NOTE | 2019-07-31 11:18 | BH.SGPN.GN ---
Behaviors/Verbalizations/Mental Status: []Client alert and oriented, disheveled appearance. Eye contact good. Motor activity appropriate. Speech rapid. Affect full, mood euthymic. Thoughts linear, logical, no signs of hallucinations or delusions. Client Response/Progress/Benefit: []Client was an active participant AEB client participating in discussion and working well in his small group. Client attentive and providing input to discussion of the different zones of taking action as well as the pros and cons of each. Client agreed with peers that it best to push oneself, but one does not want to burn out. Client completed worksheet in which he identified a problem area to focus on, a SMART goal to help work on problem area, and identify additional supports needed to be successful. Client identified he wants to stop fearing being alone and feel more confident. Client identified a small goal which is to set boundaries with at least one friend in his life this week. Client stated additional supports needed to be successful with goal include: setting aside time to talk with the friend, self-talk, and identifying his boundaries. Appeared to benefit from creating a small goal to help client reach out to supports and increase self-reflection. Will continue IOP level of care as client continues to experience erratic moods and sleep. Narrative Note: []
--- NOTE | 2019-08-03 11:06 | BH.COMM ---
Communication Note - Communication with Client Communication Note: Pt scheduled for IOP group on this date, however called and canceled with transportation services indicating he had obtained another ride. Pt did not show for IOP group scheduled for this date. This therapist followed upon and pt indicated I overselpt and just didn't feel like coming in when I woke up. Pt and therapist discussed importance of consistent attendance in order for pt to make progress towards mental health tx goals. Pt reports understanding and indicates plans to attend next scheduled date of 08/05/19. This therapist will call with a reminder prior to next scheduled appt.
--- NOTE | 2019-08-05 09:05 | BH.SGPN.GN ---
Behaviors/Verbalizations/Mental Status: []Client alert and oriented, casually dressed and groomed. Eye contact good. Motor activity restless. Speech within normal limits. Affect full, mood positive and agitated at times. Thoughts linear, logical, no signs of hallucinations or delusions. Reviewed client?s symptom tracker, no risk for suicidal ideation, plan, or intent Client Response/Progress/Benefit: []Pt listened attentively to others, provided some input when elicited by therapist. Pt identified emotion for today as grateful. Pt initially struggled with identifying mental health positives, but with coaching from therapist he was able to identify positives. Pt identified a mental health positive as attending IOP today because he reported he often struggles with follow through. Pt stated another mental health positive is being assertive to his boss by asking for his work schedule to be switched. Pt stated in the past he would have never asserted himself due to his anxiety being too severe. Pt identified current stressor as trying to figure out what he wants to do as a career. Pt seemed to benefit from support by peers. Pt progress is difficult to assess due to pt's inconsistent attendance to IOP. Pt to continue IOP to stabilize moods, improve emotional regulation and prevent decompensation. Narrative Note: []
--- NOTE | 2019-08-05 10:22 | BH.SGPN.GN ---
Behaviors/Verbalizations/Mental Status: []Client alert and oriented, casually dressed and groomed. Eye contact good. Motor activity appropriate. Speech loud, interrupting at times. Affect full, mood euthymic. Thoughts linear, logical, no signs of hallucinations or delusions. Client Response/Progress/Benefit: []Client was an active participant as evidenced by providing to discussion and listening attentively to peers. The group discussed the quote and how the emotion anger is not good or bad, but one can respond to anger in healthy or harmful ways. Client reported this group really connects with him because ?anger has really ruined my life.? Client worked with the group to define anger and its causes, as well as the internal and external impacts of anger. Group identified potential consequences of unhealthy management of anger to include: losing relationships, guilt, loss of job, increased stress, and worsening mental health symptoms. Client identified underlying factors of his anger which included jealousy, self-doubt, fear of being alone, shame, feeling overwhelmed, and being embarrassed. Client stated becoming violent, being condescending, getting quiet, and being ?noriega? are common responses he has when feeling angry. Benefited from group by increasing awareness of the negative impacts of unmanaged anger and underlying factors that contribute to his personal anger. Progress noted as client has been able to regulate his emotions during group sessions. Will continue IOP tx as client continues to endorse erratic moods, medication non-compliance, and difficulty managing emotions outside of IOP. Narrative Note: []
--- NOTE | 2019-08-05 11:30 | BH.SGPN.GN ---
Behaviors/Verbalizations/Mental Status: [Client alert and oriented, casual dress, hygiene tended to. Eye contact good. Motor activity appropriate. Speech within normal limits. Affect congruent, mood euthymic. Thoughts linear, logical, no signs of hallucinations or delusions.] Client Response/Progress/Benefit: [Pt remained an active participant throughout, AEB engagement in both activity and discussion potions of session. Pt did well to challenge himself to complete the group activity and incorporate anger management/emotion regulation skills in order to do so. Pt applied deep breathing and taking things in ?small baby steps?, as well as positive self-talk to prevent from becoming frustrated throughout. He worked with the group to process and identify the various barriers faced in the activity as well as skills used to successfully complete the task at hand without becoming dysregulated or overwhelmingly angry. Pt identified barriers impacting his own ability to better manage anger related symptoms which included: lack of awareness of triggers, all or nothing thinking, difficulties communicating when upset, and becoming overwhelmed. Pt appeared to benefit from discussion regarding potential benefits of anger and brainstorming with the group potential strategies for means of harnessing anger in healthy ways. Pt identified plans to begin more consistently applying deep breathing techniques to improve coping with anger related sx. Recommended continued IPO txt to reduce mental health sx, continue to promote mood management, and prevent decompensation.] Narrative Note: []
--- NOTE | 2019-08-10 07:35 | BH.MTP_ITS ---
Treatment Plan Review Date of Admission:: 07/13/19 Date of Treatment Plan Review:: 08/10/19 Patient's Response to Treatment:: Since beginning the IOP tx program, Pt has displayed variable levels of engagement in the treatment process. Pt has often struggled with consistent attendance which has been a result of various transportation issues, illness,as well as Pt report of ongoing depression causing him to isolate which has impacted attendance levels as well. Pt was previously set up with hospital transportation services, however due to issues in appropriately managing his emotions, specifically that of anger, Pt is no longer eligible for this service. Able to get transportation established with his insurance company. Due to issues in obtaining consistent transportation, Pt was unable to complete DSM-5 cross cutting analysis at time of review and therefore statistical analysis of symptom scores is not available. Throughout admission in program, Pt has done well to remain a well engaged and active participant. When in attendance, Pt does well to remain an active participant in both individual and group sessions, provides supportive feedback, and is able to make connections with material presented. Pt was originally receptive of beginning psychiatric medication for improved mood management. However, has not gone in for lab work to monitor Diagonal levels, reports he has not been taking medication as prescribed and often takes less or opts not take medication for several days at a time. Pt noted fear of the potential side effects as reason for inconsistent use of medication, program psychiatrist to review and offer alternatives to Diagonal. Pt additionally has had difficulties in completing homework provided during individual sessions. He has however done well to call to schedule his transportation independently which is progress for pt as he has a hx of difficulties in following through. Status of Current Problems and Symptoms: At admission, client reported symptoms of anxiety, depression, low self-esteem, poor motivation, mood swings, increased irritability, passive SI, impulsivity, panic, and interrupted sleep that interfered with daily functioning. At review client reported some improvement in mental health symptoms, however continues to struggle in a variety of areas. Pt has had limited progress in IOP tx since admission. Progress has been impacted by inconsistent attendance which has effected ability to retain and consistently practice application of materials learned. Pt has made some progress in reducing overall sx of depression and anxiety. At admission, pt reported experiencing suicidal ideation for extended periods of time daily, and now reports a decrease in frequency and intensity of sx. Denies active suicidal ideation and has been able to successfully complete a Crisis safety plan. Pt additionally was able to reduce Marijuana and alcohol use for an extended period of time, however recently reported returning to prior levels of use. Substance use levels may be impacting ability to effectively apply the emotional regulation skills he has learned as well. Client continues to report knowing what contributes to maintaining depressive sx such as isolating, avoidance, and continued substance use; however reports low levels of motivation to apply opposite action skills to begin breaking cycle of depression. Problem #1 Problem Name:: Mood lability Status of Goals:: Objective 1-partially complete. Client able to identify warning signs and triggers for mood changes, specifically anger and depression. He reports that other?s being disrespectful, his parents, and being confronted by others is often a trigger for his anger. Pt able to verbalize various healthy emotion regulation skills, though struggles significantly with application of skills learned as well as lack of motivation which in turn results in increased avoidance and feelings of guilt ultimately impacting mood control. Pt continues to struggle in reacting out of anger which has impacted relationships and ability to get needs met. Reports wanting to increase ability to practice self- compassion. Objective 2 ? partially complete. Client can identify various effective communication strategies for promoting improved healthy conflict resolution. Additionally, reports understanding how healthy communication can promote healthy relationships and indicates attempting to apply such skills to his encounters with supports; however, struggles to consistently do so when escalated or feeling his supports are not receptive. Team Recommendations:: Client encouraged to continue working on this treatment goal to reinforce healthy emotion regulation and communication skills to improve relationships, decrease impulsivity, and improve emotional stability. Continued IOP tx recommended for further progress in this area. Problem #2 Problem Name:: Anxiety Status of Goals:: Objective-1 partially complete. Client can identify anxiety related triggers and calming skills for managing these triggers. He can identify some potentially helpful coping mechanisms for reducing anxiety such as meditation, using his crystals to ground himself and recenter, positive self- talk, as well as thought challenging. At times pt struggles with consistent application of thought challenge skills and often experiences increased di fficulties when not practicing self-care activities which has been inconsistent for pt. Additionally, pt struggles with anxiety related to addressing consequences for his behaviors associated with times of increased mood dysregulation. Team Recommendations:: Client encouraged to continue working on this treatment goal to reinforce healthy coping skills and continue to further decrease symptoms of anxiety. Client and therapist currently working on thought challenging and practicing calming skills. Will continue IOP tx to maintain gains and continue to decrease anxiety related sx.
--- NOTE | 2019-08-10 09:08 | BH.SGPN.GN ---
Behaviors/Verbalizations/Mental Status: [Client alert and oriented, casual dress, hygiene tended to. Eye contact good. Motor activity appropriate. Speech within normal limits. Affect congruent, mood dysthymic. Thoughts linear, logical, no signs of hallucinations or delusions. Reviewed client?s symptom tracker, no signs of suicidal ideation, plan, or intent as of today. ] Client Response/Progress/Benefit: [Pt was an active participant in group discussion, providing input and able to connect with the group. Emotion for today is tired/saurabh as pt indicated having difficulties in waking up this morning. He shared that his current mental health wins include practicing opposite actions and getting to IOP tx despite low levels of motivation to do so. Additional win identified as increased time spend with his son over the weekend. Pt noted this is a win because it means his ex-girlfriend has been able to see positive improvements in mi mental health and is trusting him to spend more time around his son. Pt appeared to benefit from identifying specific areas of growth such as improved positivity and use of positive self-talk. Pt reports continued difficulties in consistent emotion regulation and reports easily feeding off of other?s emotions which has negatively impact him in the past. Continued IOP tx recommended to improve emotion regulation skills, continue to promote healthy change behaviors, and prevent decompensation.?] Narrative Note: []
--- NOTE | 2019-08-10 10:25 | BH.SGPN.GN ---
Behaviors/Verbalizations/Mental Status: []Client alert and oriented, casual in appearance. Eye contact fair. Motor activity appropriate. Speech within normal limits. Affect congruent, mood anxious. Thoughts linear, logical, no signs of hallucinations or delusions. Client Response/Progress/Benefit: []Client active participant as evidenced by client providing input throughout discussion and appeared to listen attentively to others. Client agreed with others that he experiences automatic negative thoughts. Client connected with the discussion about how distorted thought patterns can reinforce mental health symptoms. Client reported he connects with the distortion of mind reading and catastrophizing. Pt stated he can misinterpret another person's non-verbals and convince himself the other person is thinking negative things about him. Pt recognized mind reading and catastrophizing lead to increased anxious symptoms. Appeared to benefit from increasing awareness of cognitive distortions and how they can impact emotions and behaviors. Client to continue IOP to stabilize moods, increase healthy coping skills, and prevent decompensation. Narrative Note: []
--- NOTE | 2019-08-10 11:25 | BH.SGPN.GN ---
Behaviors/Verbalizations/Mental Status: []Client alert and oriented, casually dressed and groomed. Eye contact good. Motor activity appropriate. Speech within normal limits. Affect congruent, mood euthymic. Thoughts linear, logical, no signs of hallucinations or delusions. Client Response/Progress/Benefit: []Client responded well to session AEB participating in activity and contributing in group discussion. Client connected with the discussion about how distorted thought patterns can reinforce mental health symptoms. Client worked with the group on defining the various types of cognitive distortions and identifying how each distortion can negatively impact mental health. Client reported he has struggled with challenging his distortions in the past which has led to isolation and increased mental health symptoms. Client acknowledged that replacing distorted thoughts will take time and effort. Client worked with his small group as they practiced thought challenging by identifying distortions and replacing them with more realistic statements. Client attentive during psychoeducation on strategies to combat distortions. Client reported he plans to look at the evidence and look at the whole picture to help client challenge distorted thoughts. Appeared to benefit from increasing awareness of cognitive distortions and practicing thought challenging. Progress noted as client presents with improved focus and impulse control today. Will continue IOP tx to prevent decompensation and improve mood stability. Narrative Note: []
--- NOTE | 2019-08-12 09:52 | BH.COMM ---
Communication Note - Communication with Client Communication Note: Pt scheduled for individual and group sessions on this date. Pt did not show for scheduled appointments; however, returned this therapist's call and indicated being caught in bad weather out of town and was unable to attend as a result. Therapist discussed with pt the importance of consistent attendance in order to make most progress towards treatment goals. Pt indicates an understanding and expressed plans to attend all scheduled appointments for the next week. Pt and therapist agreed to schedule individual session for next saturday08/17/19.
--- NOTE | 2019-08-17 15:27 | BH.COMM ---
Communication Note - Communication with Client Communication Note: Pt scheduled for individual and group session on this date, however called to cancel scheduled appointments as he indicated having a viral infection. Pt discussed knowing importance of attending regularly to gain most benefit from program and expressed plans to reschedule for Saturday, 08/21, to make up for today's missed group. Pt willing to meet with this therapist for individual session on next scheduled group date, 08/19.
--- NOTE | 2019-08-19 09:28 | BH.COMM_ITS ---
Communication Note - Communication with Client Communication Note: no call/ no show for IOP today. Scheduled to see psych iatrist again today. This is 2nd no show/no call in a week. Called off ill on 08/17/19 as well. Will discuss further with therapist and treatment team regarding pt's attendance.
--- NOTE | 2019-08-24 08:12 | BH.MDN ---
Multi-Disciplinary Note - Note 45-min Individual Time Started:: 10:23 Date: 08/24/19 Purpose of session/treatment goals addressed:: The purpose of this session was to assess current symptoms, stressors, and treatment progress. Another purpose was to discuss readiness to change and attendance issues. Eye Contact:: Good Motor Activity:: Appropriate, Restless - AEB leg bouncing, pt figdeting in chair Appearance:: Casual Speech:: Appropriate Mood:: Anxious, Irritable, Depressed Affect:: Full, Other - laughing and joking despite reporting feelings of depression Thoughts:: Linear, Logical, Racing, No evidence of hallucinations/delusions noted Staff Interventions:: Therapist asked open-ended questions to elicit information regarding current symptoms, stressors, and tx goal progress. Provided empathic responses and supportive feedback as client discussed frustrations related to feeling stuck and difficulties in breaking cycle of depression. Therapist gently challenged pt use of distorted thinking patterns and applied CBT and HI approaches to aid pt in challenging external locus of control and creating small goals for opposite action, decreasing depression, and improving attendance. Assessed for further risk given pt report of SI during process group. Client Response:: Pt receptive of session and actively engaged in discussion throughout. He discussed feeling tired and depressed today as he continues to have difficulty with getting regular sleep and is often engaging in behaviors he reports knowing maintain depression cycle. Pt went on to indicate he has been staying in bed until at least noon and has not been able to go longer than 15 minutes without using Marijuana upon waking. Reports increased alcohol use as well. Pt went on to describe spending a majority of his day playing video games and is often isolated at home when he is not working. He displayed insight regarding the impact of current behaviors on preventing mental health progress, maintaining depression and anxiety, and impacting thoughts about self. Pt shared wanting to be successful and set a good example for his son but feels stuck in current pattern of behaviors. Therapist worked with Pt to challenge focus on external factors that present additional barriers such as his mother?s mental health, the coworkers he is scheduled to work with, and his ex-girlfriend limiting time Pt is able to spend with his son. Pt initially struggling to do so, but encouragement was willing to work with therapist on identifying factors contributing to his mental health symptoms within his control. Pt expressed knowing his substance use is a factor within his control and was able to identify various pros and cons of current use; however, reports he is unsure of his current readiness to change level of use. Additionally, Pt identified that ongoing isolation continues to be a major contributing factor in regard to depression levels that is within personal control. Indicated that he is willing to begin working on this area by increasing consistency of attendance in IOP program and worked with therapist on identifying strategies for doing so. Discussed benefits of consistent attendance in improving mood management and thought challenging skills as well. 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 Pt discussed beliefs that this will aid in improving self-confidence levels, increase feelings of personal progress, and reduce isolation behaviors. Risks/Concerns:: No risks or concerns noted. Pt indicated experiencing increased passive thoughts of in the past week though reports thoughts are not active and denies any plan or intent at this time. Pt is future oriented and indicates plans to attend group on and spend time working. Pt identified his son as major protective factor. Denies SI, plan, or intent as of this date 08/24/19. Reports his children as major protective factors, is future oriented, and willing to use local crisis resources should he feel unable to maintain safety at any point over the weekend. Progress Toward Goals/Plan:: Progress noted, refer above. Pt reports no longer experiencing overwhelming grief though continues to struggle with depression related sx at time. He indicates ongoing feelings of worthlessness, helplessness, and anxiety. Pt reports wanting to work on application of healthy coping skills however continues to struggle in consistently attending groups, maintaining sobriety, and reaching out to supports which may be impacting treatment progress. 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 Will continue in IOP tx to maintain safety, prevent decompensation, improve coping skills and use of effective communication strategies, and improve functioning. Time Stopped:: 11:16
--- NOTE | 2019-08-24 09:05 | BH.SGPN.GN ---
Behaviors/Verbalizations/Mental Status: [Eye contact is fair to good. Motor activity is restless AEB pt fidgeting in chair, bouncing leg. Appearance is casual. Speech is Appropriate rate and tone. Mood is anxious, depressed. Affect is congruent. Thoughts are linear and logical. No evidence of psychosis. Reviewed daily check in sheet and pt reports SI is at a rate of 3/5 which is typical for pt baseline. Denies any active plan, or intent and willing to meet with this therapist individually to further assess. ] Client Response/Progress/Benefit: [Pt responded well to session, engaged throughout. Initially noted not wanting to share with the group but upon becoming more comfortable was open to processing with the group. Pt indicated current emotion as ?depressed? and discussed that this is because he has been struggling with isolating and negative thoughts causing rumination and impacting self-worth. Pt shared knowing that coming to IOP tx is helpful but that he struggles in having the motivation to do so on a consistent basis. Pt appeared to benefit from supportive feedback and structure of group environment. Expressed connecting with fellow participants struggling with similar stressors and noted relating to difficulties in coping when feeling depressed. 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 Pt progress continues to be limited due to inconsistent attendance and difficulties in application of healthy coping and distress tolerance skills. He is recommended continued IOP tx to prevent decompensation, decrease depression, and improve emotion regulation.] Narrative Note: []
--- NOTE | 2019-08-24 11:13 | BH.SGPN.GN ---
Behaviors/Verbalizations/Mental Status: []Client alert and oriented, casually dressed and groomed. Eye contact good. Motor activity appropriate. Speech within normal limits. Affect congruent to topic being discussed, mood dysthymic. Thoughts linear, logical, no signs of hallucinations or delusions. Client Response/Progress/Benefit: []Client responded well to session as evidenced by client listening attentively to others and sharing when prompted. Client identified his warning signs for crisis and gained further awareness of his earliest warning signs. Client recognized that awareness of these warning signs can prevent further crisis and help client utilize healthy coping skills to break the cycle. Client created a crisis action plan to help client better manage warning signs for crisis. Client?s plan included coping skills such as: getting out of bed, do something productive, listen to music, reach out to friends, and workout. Client selected tangible items for crisis survival kit that will help his remember these crisis interventions. Client appeared to benefit from creating a crisis action plan and increasing his self-awareness. Client to continue IOP to prevent decompensation, improve mood stability and improve emotional regulation. Narrative Note: []
--- NOTE | 2019-08-24 12:52 | PCM.BH.PN ---
Progress Note Progress Note: History of Present Illness/Interim History: [] Patient is a 23-year-old single male with a history of bipolar disorder and ADHD who was seen in follow-up at the [facility] program. I last saw the patient about 3 weeks ago. He says that he only took the lithium that I prescribed for a few days and then he stopped it. He says that his sister is a nurse and is very knowledgeable and told him that lithium was not a good medication to take. The patient says that his mood is still not good. He said he is more depressed and angry now however. He feels this has been an improvement that he attributes to his skills learned in the program. He admits to being depressed but he denies any suicidal ideation, homicidal ideation or thought passive thoughts of . He has no plan. His sleep is now good and he is sleeping 6 to 7 hours a night. He said he is still using alcohol about 4-5 drinks of whiskey a week. He is still smoking marijuana a few times a day. He does not feel that his marijuana and alcohol use are harmful to him and he is not motivated to stop them. He is taking the quetiapine 25 mg p.o. nightly for sleep. He states that he is sleeping much better due to 25 mg only of Seroquel. Current Psychiatric Medications: [] Seroquel 25 mg p.o. nightly Mental Status Examination: [] Patient is a 23-year-old male who appears normal for stated age. He is casually dressed and groomed with good hygiene. He is cooperative during the interview and his speech is normal rate and rhythm. There is no pressure to his speech. His mood is depressed. His affect is euthymic to mildly constricted. His thought process: Is goal-directed and organized. His thought content: No evidence of suicidal ideation or homicidal ideation at this time. He has no plan. No thoughts of . No evidence of hallucinations or delusions. His judgment is limited. His insight: There is some present but poor in terms of his substance use issues. Impulsivity low to moderate. Diagnoses: [] [place] I: [] Bipolar 2 disorder (F 31.81); generalized anxiety disorder; ADHD; marijuana and alcohol use disorders [place] II: [] B traits [place] III: [] Negative [place] IV:[]] Very support and job issues Plan: [] Patient will continue the IOP program as the support, education, structure, individual and group therapy will hopefully prevent worsening of his symptoms which might require hospitalization. The risks, possible side effects and possible complications of the Latuda were discussed with the patient and he understands and accepts these. He understands he is to take Latuda with food or it will not be absorbed well. He is encouraged to decrease or eliminate his alcohol and marijuana use but he is not interested in doing this. A prescription was given to the patient for Latuda 20 mg p.o. with dinner. [place] safe during the interview and if it any time he does not feel safe he will notify us at the IOP program or go to the emergency room. I will see the patient in follow-up in 1 to 2 weeks. [place] labs were not ordered as the patient had only taken his lithium for a few days and then stopped it a while ago.
--- NOTE | 2019-08-28 08:39 | BH.COMM ---
Communication Note - Communication with Client Communication Note: Pt rescheduled planned group date for [facility] to be today, 08/28/19; however, indicated being unable to secure transportation. Therapist reiterated the importance of regular attendance on reducing isolation and improving mental health symptoms. Additionally reviewed transportation requirements for pt insurance including calling to schedule transportation within 48 hours in advance. Discussed plans to call and schedule transportation for next week on Saturday. Pt reports he will infotm this therapist of planned attendance dates at that time.
== END 2019-08-29 23:59 ==
LOC: BHIOP 09:00
PROVIDERS: Family Provider Family Medicine; PCP Family Medicine; Referring Provider Psychiatry & Neurology Psychiatry; Visit Provider Psychiatry & Neurology Psychiatry
DX: F31.81 Bipolar II disorder (principal); F41.1 Generalized anxiety disorder; F90.9 Attention-deficit hyperactivity disorder, unspecified type; F12.90 Cannabis use, unspecified, uncomplicated; Z72.89 Other problems related to lifestyle
CPT/HCPCS: H0035; H2012; H2020; 90834

== ENCOUNTER 2019-09-02 09:00 | Outpatient (RCR) | payer MEDICAID, SELFPAY ==
--- NOTE | 2019-09-02 09:05 | BH.SGPN.GN ---
Behaviors/Verbalizations/Mental Status: [] Eye contact is good. Motor activity is appropriate. Appearance is neat. Speech is Appropriate. Mood is anxious. Affect is congruent. Thoughts are linear and logical. No evidence of psychosis. Reviewed daily check in sheet and pt reports 3/5 for suicidal ideations and 1/5 for intent. Therapist notified. Client Response/Progress/Benefit: [] Pt participated at times during group discussion. Emotion for today is ecstatic. Shared that he had an increased work schedule of the holiday last weekend and did not spend much time with his family. Reports decreased anger and increased motivation. States I've been in a really good mood. Unable to identify any changes or skills that he is utilizing to account for mood change. 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 His check-in is not congruent with report of 3/5 for suicidal thoughts and 1/5 for intent. Pt is smiling, positive, and engaged with peers. Progress noted per pt report. Benefited from group support, encouragement, and feedback. Will continue in IOP to prevent decompensation, stabilize mood, and increase healthy coping. Narrative Note: []
--- NOTE | 2019-09-02 10:20 | BH.SGPN.GN ---
Behaviors/Verbalizations/Mental Status: []Client alert and oriented, casually dressed and groomed. Eye contact good. Motor activity appropriate. Speech within normal limits. Affect congruent, mood euthymic. Thoughts linear, logical, no signs of hallucinations or delusions. Client Response/Progress/Benefit: []Client responded well to session, attentive and engaged throughout. Client appeared to connect with the topic of fear of failure. Client agreed with peers that it is possible for failure to actually lead to success, but it takes challenging one?s perspective. Client nodded that he has struggled with fear of failure throughout his life. Group reported if one only focuses on past failures and mistakes it can lead to worsening mental health symptoms. Group identified the impacts of fear of failure on mental health which included: not trying, low self-esteem, depending too much on others, avoidance, hopelessness, and increased mental health symptoms. Client seemed to benefit from increased awareness of how fear of failure can impact mental health. Client will continue IOP tx to prevent mood dysregulation, decrease use of unhealthy coping skills, and improve daily functioning. Narrative Note: []
--- NOTE | 2019-09-02 11:21 | BH.SGPN.GN ---
Behaviors/Verbalizations/Mental Status: [Client alert and oriented, casually dressed and well groomed. Eye contact good. Motor activity appropriate. Speech within normal limits. Affect congruent, mood euthymic, anxious. Thoughts linear, logical, no signs of hallucinations or delusions.] Client Response/Progress/Benefit: [Client responded well to session, active participant. Client worked with the group to complete the challenge activity and shared that encouragement and support from fellow participants helped to accomplish the activity. Client completed the fear of failure worksheet and reported that fear of failure is keeping him from reaching his full potential. Reported barriers for overcoming fear of failure are toxic relationships, negative thoughts, isolation, and shutting down. Client shared he has been able to bounce back from setbacks in the past and the positive thing he has learned from past failures is that failure can motivate you to make better decisions moving forward. Client selected a goal to help overcome fear of failure. Client?s goal is to practice putting more effort into using healthy coping skills and taking deep breaths. Client appeared to benefit from gaining awareness and setting a goal to reduce fear of failure. Client showing progress in increased engagement in tx. Pt recommended continued IOP tx to improve ability to regulate emotions, decrease negativity, and increase application of skills learned.] Narrative Note: []
--- NOTE | 2019-09-02 12:26 | BH.COMM_ITS ---
Communication Note - Communication with Client Communication Note: On daily symptom tracker pt noted a 3/5 for suicidal i deations and 1/5 for suicidal intent and this therapist met to discuss. Pt denies any suicidal ideations, plan, or intent. States I don't know why I wrote that . Reports that he is feeling positive today and feels hopeful.
--- NOTE | 2019-09-04 08:57 | BH.MDN_ITS ---
Multi-Disciplinary Note - Note 45-min Individual Time Started:: 10:17 Date: 09/04/19 Purpose of session/treatment goals addressed:: The purpose of this session was to assess current symptoms, stressors, and treatment progress. Another purpose was to discuss readiness to warning signs for armando and create a weekend safety plan to prevent engaging in high risk behaviors. Eye Contact:: Intense Motor Activity:: Restless Appearance:: Neat, Casual Speech:: Pressured Mood:: Irritable, Depressed Affect:: Other - incongruent at pt reports everything is shit but is smiling and laughing throughout session. Thoughts:: Logical, Flight of ideas, No evidence of hallucinations/delusions noted Staff Interventions:: Therapist asked open-ended questions to elicit information regarding current symptoms, stressors, and tx goal progress. Provided empathic responses and supportive feedback as client discussed frustrations related to various stressors. Therapist gently challenged pt use of distorted thinking patterns, specifically absolutes and emotional reasoning. Applied CA techniques to work with pt on identifying his personal warning signs and common manic warning signs and symptoms, as well as create a weekend safety plan for armando. Client Response:: Pt receptive of session and actively engaged in discussion throughout. Pt laughing and smiling as he expressed that ?everything is shit?. He shared, ?I?m really good at putting on a front, I don?t like people seeing me struggle?. Pt expressed that ?this is how it always goes. It cool, I just figure it out?. Went on to discuss primary stressor as feeling lonely and wanting to have a physical connection. Pt was sitting on edge of seat, speaking more rapidly, and switching topics throughout conversation. Pt indicated that although he has various stressors, he feels like ?things will work themselves out?. Discussed having increased energy and believing he may be experiencing symptoms of hypomania. Discussed typically when he feels this way he uses substances, gets in fights, or experiences hypersexuality. Pt noted hypersexuality hx has lead to high risk behaviors via multiple partners or other unintended consequences due to differing of expectations of the relationship. Despite indicating insight regarding consequences of these behaviors, pt noted that he has already made plans to ?have a girl over? and ?I mean, I?ll probably go out and drink?. Open to discussing potential consequences of these behaviors and identified that by following through with them he may experience additional unintended consequences. Identified that having a sexual relationship my not be healthy for his own mental health as he is still struggling to move on from his relationship with his ex and could end up experiencing increased guilt as a result. Pt willing to work with therapist on creating a safety plan for the weekend to prevent engaging in high risk behaviors. Pt identified that he could put on music that is calming and finish redecorating his living room. Additionally, identified that going for a run would help to release built up energy. He indicated also being interested in beginning creative writing as when he is manic he experiences racing thoughts. Receptive of completing a writing prompt over the weekend. Risks/Concerns:: No risks or concerns for safety noted. Pt indicated experiencing increased manic symptoms. Reports increased sx of armando though reports ability to maintain safety and prevent from engaging un unhealthy or high-risk behaviors. Worked with this therapist to complete safety plan for the weekend. Aware of and willing to reach out to local crisis resources should he feel unable to maintain safety at any time. Denies any active SI, plan, or intent as of this date 09/04/19. Progress Toward Goals/Plan:: Limited progress noted. Pt reports experiencing issues in consistent application of emotion regulation and healthy coping skills outside of treatment environment. Limited skill application and resistance to psychiatric medication may be impacting ability to maintain stability and result in continued issues with mood swings. Reports ongoing substance use. Continues to struggle with consistent attendance and isolation. Pt however has done well to complete safety plan and is reporting improved ability to manage irritability. Will continue in IOP tx to maintain safety, prevent decom pensation, improve mood stability and functioning. Time Stopped:: 11:08
--- NOTE | 2019-09-04 09:03 | BH.SGPN.GN ---
Behaviors/Verbalizations/Mental Status: [Eye contact is good. Motor activity is appropriate. Appearance is casual, grooming appropriate. Speech is pressured, at times rambling. Mood is euthymic, anxious. Affect is congruent, bright. Thoughts are linear and logical. No evidence of psychosis. Reviewed daily check in sheet and pt denies any active SI, plan, or intent. ] Client Response/Progress/Benefit: [Pt responded well to session, engaged throughout and open to processing with the group. Pt indicated current emotion as ?up? or ?energetic? and discussed that this is due to feeling increasingly able to identify small positives in his day rather than focus on the negatives. Shared enjoying listening to music and took time for self-care via completing personal hygiene routine. Identified current mental health win as getting to group and making plans for the remainder of the day rather than staying inside and playing video games. Reports some worry that he may be manic as he has been experiencing increased urges to engage in impulsive behaviors. Willing to discuss with group potential healthy activities he can do to prevent high risk decision making. Pt identified going for a run and reading [employer] as safe activities he would enjoy. Pt progress continues to be impacted by pt difficulties in maintaining motivation and follow through regarding application of skills and readiness to change. Pt recommended continued IOP tx to prevent decompensation, and promote application of emotion regulation skills, and reduce depression.] Narrative Note: []
--- NOTE | 2019-09-08 09:10 | BH.SGPN.GN ---
Behaviors/Verbalizations/Mental Status: [] Eye contact is good. Motor activity is appropriate. Appearance is casual. Speech is Appropriate. Mood is anxious. Affect is congruent. Thoughts are linear and logical. No evidence of psychosis. Reviewed daily check in sheet and pt reports 3/5 for suicidal thoughts and 3/5 for intent. Therapist notified. Client Response/Progress/Benefit: [] Pt was an active participant in group discussion. Emotion for today is off. Daily tracker notes 3/5 for anxiety, panic, agitation, and hopelessness. Pt appears to have simply marked 3's for all the categories. Stated out with a mental health win stating that he did not drink alcohol to self-medicate all weekend. Describes weekend as horrible however is vague. Notes that he has been ruminating a great deal on his past relationship and his child which he has limited contact. States I;m concerned for myself at times. Clarified that he was not inferring suicide but just his overall mental health. I'm working on letting things go for awhile. Group provided feedback on some skills to help with rumination and radical acceptance. Engaged with peers and offering feedback. Will continue in IOP to prevent decompensation, stabilize mood, and increase healthy coping skills. Narrative Note: []
--- NOTE | 2019-09-08 16:03 | BH.MDN ---
Multi-Disciplinary Note - Note 60-min Individual Time Started:: 10:17 Date: 09/08/19 Purpose of session/treatment goals addressed:: Reviewed current symptoms, stressors, and progress in IOP. Addressed treatment goal two. Eye Contact:: Good Motor Activity:: Restless Appearance:: Neat, Casual Speech:: Appropriate Mood:: Depressed Affect:: Other - incongruent AEB pt laughing and smiling when expressing feeling depressed and overwhelmed Thoughts:: Linear, Logical, Racing, No evidence of hallucinations/delusions noted Staff Interventions:: Utilized NC techniques to elicit change behaviors. Challenged pt use of distorted thoughts and perceptions. Discussed strategies for continuing to improve self-confidence and emotion regulation skills. Client Response:: Pt shared that he has been struggling the past few days since having a conversation with his ex regarding pt ability to see his son more consistently. Pt discussed that he had reached out to her to ask to see his son over the weekend and that she had ignored his texts. Pt indicated that ongoing difficulties in adjusting to the end of the relationship continues to maintain his anxiety and depression. Explained that he fears she will ?move on? and someone else will end up raising his son in the father figure role. Pt noted ?this would be my breaking point, I?d either fuck some pippa up or myself?. Therapist challenged use of distorted thoughts and worked with pt to identify what areas are within his control in the situation. Challenged pt to identify how his current coping behaviors and decisions, as well as past issues with regulating emotions may impact pt ex?s ability to trust him. Pt reports feeling further discouraged as he has limited supports and feels he has no one who cares if he succeeds. States fuck it attitude and decreased motivation. Open to challenging some thoughts though continues to report struggling with ambivalence. Pt worked with therapist to identify internal motivations for himself to succeed in improving his mental health. Pt identified wanting to obtain his GED in order to feel as though he can move forwards professionally which he believes will aid in improving overall sense of purpose as well. Risks/Concerns:: Denies any active suicidal ideations, plan, or intent as of this date. Reports scores of 3/5 on daily sx tracker are ?where I?m always at. I?m not going to do anything to hurt myself?. Reports willingness to seek crisis services should he feelunable to maintain safety at anytime. Progress Toward Goals/Plan:: Regression related to recent stressors. Increased depression, stress, anger, and apathy since Saturday. Increased hopelessness and decrease self-esteem. Struggles using skills outside of the program however reports that he is trying but ?I just honestly don?t have the motivation right now, I feel like it will fall in place eventually?. MH symptoms continue to impact daily functioning. Will continue in IOP to maintain safety, prevent decompensation, and improve emotion regulation.
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
--- NOTE | 2019-09-11 11:15 | BH.SGPN.GN ---
Behaviors/Verbalizations/Mental Status: []Client alert and oriented, casual in appearance. Eye contact fair. Motor activity restless. Speech within normal limits. Affect congruent, mood anxious. Thoughts linear, logical, no signs of hallucinations or delusions. Client Response/Progress/Benefit: []Client was an semi-active participant in group discussion, contributing to discussion at times and at times appeared distracted AEB pt playing on phone. Needed encouragement from therapist to complete worksheet. Client reported believe is in chapter 3 because starting to recognize what he is doing that keeps him stuck. Client shared to get to the next chapter he wants to be open with his therapist and follow through with the suggestions made. Benefited from group by identifying thoughts and behaviors that have kept him stuck and developing plan to promote progress. Progress could be hindered by pt's difficulty with consistently applying healthy coping skills outside treatment environment. Will continue IOP to increase consistent utilization of healthy coping, challenge distorted thoughts, and prevent decompensation. Narrative Note: []
--- NOTE | 2019-09-14 08:00 | BH.TPR ---
Treatment Plan Review Date of Admission:: 07/13/19 Date of Treatment Plan Review:: 09/14/19 Admitting Diagnoses:: Bipolar disorder, not otherwise specified (F 31.9; generalized anxiety disorder; ADHD; marijuana and alcohol use disorders Current Diagnoses:: Bipolar disorder, not otherwise specified (F 31.9; generalized anxiety disorder; ADHD; marijuana and alcohol use disorders Patient's Response to Treatment:: Since last treatment plan review, Pt has displayed variable levels of engagement in the treatment process and continues to struggle with consistent attendance which further impacted progress. Pt has recently been struggling more with emotion regulation and isolation which has impacted his attendance as well as engagement in group. Pt appears more disengaged when in group setting and at times struggles with making inappropriate of off topic comments. Pt was unable to complete DSM-5 cross cutting analysis at time of review as a result, and therefore statistical analysis of symptom scores is not available. Pt continues to struggle with medication consistency and reports reluctancy to take medication due to fear of the potential side effects. Reports not currently taking any psychiatric medications. Pt additionally has had difficulties in completing homework provided during individual sessions and struggles to remain focus when in session which has further impeded tx progress. Status of Current Problems and Symptoms: At admission, client reported symptoms of anxiety, depression, low self-esteem, poor motivation, mood swings, increased irritability, passive SI, impulsivity, panic, and interrupted sleep that interfered with daily functioning. At review client continues to struggle with significant mood swings and depression impacting his ability to function at baseline, impeding engagement in treatment, and further increasing ability to communicate with his supports. Pt has had limited progress in IOP tx since last review. Progress has been impacted by inconsistent attendance which has affected ability to retain and consistently practice application of materials learned. Pt has recently regressed in his overall progress as he has experienced increased stress related to his external relationships. Pt struggles with externalization and often responds to stressors without first taking time to self-regulate. Pt continues to report passive suicidal ideation, which is increased in relation to current stressors, however he reports his relationship with his son as a major protective factor. Denies active suicidal ideation and has been able to successfully complete consistent safety plans when indicating suicidal thoughts. Pt additionally reports ongoing substance use which may continue to be impacting ability to effectively apply the emotional regulation skills he has learned as well. Client continues to report knowing what contributes to maintaining depressive sx such as isolating, avoidance, and continued substance use; however reports low levels of motivation to apply opposite action skills to begin breaking cycle of depression. Problem #1 Problem Name:: Mood swings Status of Goals:: Objective 1-Not complete. Client continues to be able to identify warning signs and triggers for mood changes, specifically anger and depression. Pt continues to do well to verbalize various healthy emotion regulation skills, though since last review has made no progress with increasing application of skills learned, as well as lack of motivation to do so. Pt continues to struggle in reacting out of anger which has impacted relationships and ability to get needs met. Reports limited desire to work on this area. Objective 2 ? partially complete. Client continues to do well to identify various effective communication strategies for promoting improved healthy conflict resolution. Pt however, struggles to consistently do so when escalated or feeling his supports are not receptive. Recently has expressed decreased motivation to implement skills for improving communication with supports. Team Recommendations:: Client encouraged to continue working on this treatment goal to reinforce healthy emotion regulation and communication skills to improve relationships, decrease impulsivity, and improve emotional stability. Continued IOP tx recommended for further progress in this area. Problem #2 Problem Name:: Anxiety Status of Goals:: Objective-1 partially complete. Client continues to identify anxiety related triggers and calming skills for managing these triggers. He does well to utilize skills learned when regulated; however, in times of increased stress and mood dysregulation, pt significantly struggles to apply healthy means of coping and often turns to old toxic coping habits instead. Team Recommendations:: Client encouraged to continue working on this treatment goal to reinforce healthy coping skills and continue to further decrease symptoms of anxiety. Client and therapist currently working on thought challenging and practicing calming skills. Will continue IOP tx to maintain gains and continue to decrease anxiety related sx.
--- NOTE | 2019-09-14 10:13 | BH.SGPN.GN ---
Behaviors/Verbalizations/Mental Status: [Client alert and oriented, casually dressed and groomed. Eye contact good. Motor activity appropriate, at times restless. Speech within normal limits. Affect congruent, mood anxious, euthymic. Thoughts linear, logical, no signs of hallucinations or delusions. ] Client Response/Progress/Benefit: [Client was attentive and actively engaged throughout. Participated in discussion of the quote and shared that although he agrees rationally that ?we have the choice to choose a different path?, he has difficulties in following through with this or believing it in the moment. The group worked together to identify barriers that keep one from choosing a new and healthier path to mental wellness which included; unhealthy habits, fear of failure, fear of the unknown, apathy, procrastination, lack of awareness, and negative thinking. Attentive during psychoeducation on the chapters of life, providing limited insight to distinguishing factors in each chapter, though actively listening. Reflected that in order to move to next chapter we need recognize what we did wrong by saying ?maybe I did mess up, now how do I do better??. Benefited from increased awareness and education on barriers to choosing new wellness paths and chapters of life. Progress limited as client continues to struggle with consistent attendance and engagement, as well as self-reports limited follow through in skill application. Will continue IOP tx to further reduce anxiety and depression, promote mood stability, while improving client?s ability to function at his baseline.] Narrative Note: []
--- NOTE | 2019-09-15 09:21 | BH.COMM ---
Communication Note - Communication with Client Communication Note: Pt scheduled for group on this date, however did not call to cancel and was not in attendance. Therapist called pt to check-in and reschedule. Pt unavailable and a discrete message was left encouraging pt to return this call.
--- NOTE | 2019-09-16 09:23 | BH.COMM ---
Communication Note - Communication with Client Communication Note: Pt scheduled for group and individual sessions on this date, however did not call to cancel and was not in attendance. Therapist called pt to check-in and reschedule. Pt unavailable and a discrete message was left encouraging pt to return this call and discussing attendance policy. Will continue to attempt to follw-up.
--- NOTE | 2019-09-17 08:01 | BH.DS_ITS ---
Discharge Summary - Demographics Date of Admission:: 07/13/19 Discharge Date: 09/17/19 Presenting Problems at Admission:: Client is a 23-year-old male with a history of Bipolar NOS, anxiety, depression, PTSD, anger management problems, and polysubstance use disorder. Client was referred to [facility] by family due to worsening mood symptoms resulting in erratic behaviors, increased hopelessness/helplessness, depression, passive thoughts of , impulsiveness, and increased irritability. Due to intensity of mood symptoms, pt has been limited in amount of time able to see his son. Pt additionally reports he has experienced occupational issues due to lashing out in anger at work. Additionally, identified worsening depression and anxiety symptoms resulting in decreased use of supports, avoidance, increased marijuana use when feeling anxious, and increased panic sx. Reports he does not have consistent transportation which is an additional barrier. Reports history of lack of follow through. Pt has hx of armando and depression. Client currently endorses a depressed mood, lack of energy, lack of concentration, lack of motivation, avoidance behaviors, emotional dysregulation, irritability, isolation and inconsistent sleep. Client's symptoms are interfering with his social, occupation, and familial functioning. Discharge Diagnoses:: Bipolar disorder, not otherwise specified (F 31.9; generalized anxiety disorder; ADHD; marijuana and alcohol use disorders Reason for Discharge:: During time in program pt has been able to gain some increase in insight regarding how his impulsive behaviors and difficulties communicating when emotionally dysregulated is impacting his mental health. Pt's transportation issues, difficulties in maintaining attendance, and self-reported issues with motivation and healthy decision making have impeded pt ability to make progress in IOP level of tx. Pt reports that due to ongoing issues with attendance, he would like to continue counseling on the individual outpatient basis. [facility] to be established with psychiatry and provided resources for outpatient counseling options with [facility], [facility], [email or web address], and [facility]. - Treatment Progress During Treatment & Response: Pt demonstrated variable progress throughout IOP tx. Pt reports some increase in self-awareness of how minimizing his emotions and thoughts negatively impact his depressive symptoms, as well as the impact of unhealthy coping mechanisms on maintaining mental health symptoms. Pt progressed with incorporating some grounding and calming skills during times he was experiencing hypomanic symptoms and reports successfully preventing crisis escalation on occasion; however, remained inconsistent in doing so which impacted ability to make substantial gains. Pt's inconsistent application of coping skills and emotion regulation skills has impacted pt ongoing reports of mood instability. Pt main stressor was pt's ongoing issues with emotion dysregulation, specifically that of anger management. He struggled significantly with attendance and engagement while in IOP treatment, often canceling or no showing for scheduled group dates. Pt reports continued substance use throughout IOP program which may have contributed to attendance and skill application issues. Pt indicates limited motivation to refrain from or reduce substance use. Noted wanting t focus more specifically on anger management treatment and expressed that given current work schedule and transportation barriers, individu al outpatient counseling would better fit his needs at this time. Pt tended to be engaged in group sessions, contributing his thoughts and ideas to discussion, though at times struggling with remaining appropriate and on topic. Pt engaged in group activities and listened attentively to peers. Issues Still to be Addressed:: Pt could benefit from outpatient counseling to improve anger management and emotion regulation skills. He would additionally benefit from substance use counseling when indicating motivation to do so. Pt also could benefit from increasing utilization of healthy coping skills, challenging distorted thoughts, and improved communication skills. Discharge Recommendations/Instructions:: 1. Pt to follow up with individual counseling at [facility], [facility], or [facility]. 2. Pt to follow up with psychiatrist intake appointment at [facility] scheduled for 10/02/18. Discharge Handout: Complete Discharge Handout with client on aftercare options and continuity of care.
== END 2019-09-16 16:00 | disposition home or self-care (01) ==
LOC: BHIOP 09:00
PROVIDERS: Family Provider Family Medicine; PCP Family Medicine; Referring Provider Psychiatry & Neurology Psychiatry; Visit Provider Psychiatry & Neurology Psychiatry
DX: F31.9 Bipolar disorder, unspecified (principal); F41.1 Generalized anxiety disorder; F90.9 Attention-deficit hyperactivity disorder, unspecified type; F12.90 Cannabis use, unspecified, uncomplicated; Z72.89 Other problems related to lifestyle
CPT/HCPCS: H0035; H2012; H2020; 90837

== ENCOUNTER 2020-04-18 20:34 | Emergency (ER) | payer MEDICAID, SELFPAY ==
[2020-04-18 20:36] VITALS: BP 145/73; PULSE 79; RESP 16; TEMP 36.8; O2SAT 100; BMI 23.6
--- NOTE | 2020-04-18 21:25 | EKG12_ITS ---
Test Reason : CP Blood Pressure : / mmHG Vent. Rate : 060 BPM Atrial Rate : 060 BPM P-R Int : 128 ms QRS Dur : 082 ms QT Int : 378 ms P-R-T Axes : 039 067 054 degrees QTc Int : 378 ms Normal sinus rhythm Normal ECG Confirmed by JONATHON MONCADA ([id number]), science editor SINGH OMALLEY ([id number]) on 04/21/2020 2:51:50 PM Referred By: MILY Confirmed By:JONATHON MONCADA
--- NOTE | 2020-04-18 21:25 | ED.DCSUM_ITS ---
History of Present Illness Chief Complaint: Anxiety Informant: Patient, Family Onset: Days Context: Gradual Onset Timing: Intermittent Worsened by: Situational factors Associated Symptoms: Change in Eating, - - anxiety. Negative for: Suicidal Thoughts, Visual Hallucinations, Auditory Hallucinations Narrative: Patient is a 24-year-old male with history of anxiety and alcohol abuse presenting with worsening anxiety as well as intermittent episodes of chest pain and right arm pain. Patient states his anxiety is been worse over the past week. He is also been having episodes of chest pressure that last anywhere between 30 minutes to an hour. When he is happening feels like he is short of breath. He denies any chest pain associated with it. The episode was more persistent today which concerned him. He also notes he is had intermittent episodes of pinpoint area of pain in his right bicep. He denies any injury. This started happening 3 days ago. Patient states about a month ago he stopped drinking hard liquor and just has been drinking beer and malt beverages. He states he has about 6 tall boys a day. He not have anything to drink today because he thought it might be making his symptoms worse. Mother is at the bedside who agrees with the story. Patient denies any homicidal suicidal ideations. He denies any auditory visual hallucinations. He is currently seen counselor through the counseling center but does not have a psychiatrist. He is working to get that set up. Finally patient notes he is had some pressure with urination and hesitancy. He states he is not urinating as much as he usually does. He is not sure what to think that. Past Medical History - Allergies and Home Meds Allergies/Adverse Reactions: Allergies No Known Allergies Allergy (Verified 04/18/20 20:38) Primary [facility] Physician: [facility]] - Bib Alford MD [Primary Care Provider] - Past Medical History: - - Alcohol abuse, anxiety, bipolar disorder Surgical History: noncontributory Lives: With Family Smoking Status: Never smoker Review of Systems General: Reports: Malaise. Denies: Chills, Fever, Sweats Eyes: Denies: Visual changes - bilaterally, Diplopia ENT: Denies: Rhinorrhea, Sore throat Cardiovascular: Reports: - - Chest tightness. Denies: Chest pain, Palpitations Respiratory: Denies: Dyspnea, Cough, Dyspnea on exertion Gastrointestinal: Denies: Abdominal pain, Nausea, Vomiting, Diarrhea, Melena, Hematochezia Genitourinary: Reports: - - Decreased urination, hesitancy. Denies: Dysuria, Hematuria, Frequency Musculoskeletal: Reports: Extremity Pain - Right bicep pain. Denies: Back pain Skin: Denies: Rash, Wounds Neurological: Denies: Headache, Weakness, Numbness Psych: Reports: Anxiety. Denies: Depression, Suicidal thoughts, Suicidal ideations Physical Exam Vital Signs/Narrative: Vital Signs Temp Pulse Resp BP Pulse Ox 04/18/20 20:36 98.3 F 79 16 145/73 H 100 Inital Vital Signs reviewed: Yes General: Well nourished, Well developed Head: Normocephalic, Atraumatic Eyes: Perrl, EOMI ENT: Moist mucous membranes, No rhinorrhea, TM's clear Neck: Supple, Nontender, No JVD Cardiovascular: Regular rate, Regular rhythm, No murmurs Respiratory: No distress, CTA bilaterally, Chest nontender. Negative for: Rhonchi, Wheezing, Chest tenderness Abdomen: Soft, Nontender, Nondistended, Normal bowel sounds Back: Nontender, Normal Inspection Extremities: Nontender, No Edema, - - Pinpoint area of tenderness of the right mid bicep. Not made worse with flexion or extension. No weakness of the muscle noted. No overlying erythema or abscess. Skin: Normal color, No rash Neurological: Alert, Oriented x3, Cranial nerves II-XII grossly intact, Normal Strength, Normal Sensation Psych: Good Insight, Pressured Speech. Negative for: Suicidal thoughts, Hallucinations, Delusions Diagnostic/Tx/Re-eval Chest X-Ray - ED: 1 View, Read by ED Physician, Read by Radiologist, No Acute Disease Clinical Impression(s) from Imaging Studies Chest X-Ray 04/18/20 21:57 IMPRESSION: Normal x-ray examination of the chest. Electronically Signed: Joe Silverman MD at 22:36 EDT , Service support , Laboratory Data 04/18/20 04/18/20 04/18/20 21:45 21:45 21:45 WBC 5.4 RBC 4.53 L Hgb 14.3 Hct 41.6 MCV 91.8 MCH 31.6 MCHC 34.4 RDW Std Deviation 41.1 RDW Coeff of Issa 12.1 Plt Count 157 MPV 11.4 Immature Gran % (Auto) 0.400 Neut % (Auto) 50.9 Lymph % (Auto) 39.1 [place] % (Auto) 7.4 Eos % (Auto) 1.3 Baso % (Auto) 0.9 Absolute Neuts (auto) 2.7 Absolute Lymphs (auto) 2.10 Nucleated RBC % 0 Sodium 139 Potassium 3.8 Chloride 106 Carbon Dioxide 28.0 Anion Gap 5 BUN 13 Creatinine 1.23 Estim Creat Clear Calc 91.14 Est GFR (MDRD) Af Amer 94 Est GFR (MDRD) Non-Af 78 BUN/Creatinine Ratio 10.6 Glucose 87 Calcium 8.8 Total Bilirubin 1.00 AST 12 L ALT 19 Alkaline Phosphatase 65 Total Protein 7.2 Albumin 4.3 Globulin 2.9 Albumin/Globulin Ratio 1.5 TSH 0.75 Urine Color Urine Clarity Urine pH Ur Specific [place] Urine Protein Urine Glucose (UA) Urine Ketones Urine Occult Blood Urine Nitrite Urine Bilirubin Urine Urobilinogen Ur Leukocyte Esterase Urine RBC Urine WBC Ur Squamous Epith Cells Urine Bacteria Urine Mucus Urine Opiates Screen Urine Methadone Screen Ur Barbiturates Screen Ur Phencyclidine Scrn Ur Amphetamines Screen U Methamphetamin-MDMA U Benzodiazepines Scrn Urine Cocaine Screen U Cannabinoids Screen Ur Drug Screen Comment Ethyl Alcohol < 3.0 04/18/20 04/18/20 21:50 21:50 WBC RBC Hgb Hct MCV MCH MCHC RDW Std Deviation RDW Coeff of [place] Plt Count MPV Immature Gran % (Auto) Neut % (Auto) Lymph % (Auto) [place] % (Auto) Eos % (Auto) Baso % (Auto) Absolute Neuts (auto) Absolute Lymphs (auto) Nucleated RBC % Sodium Potassium Chloride Carbon Dioxide Anion Gap BUN Creatinine Estim Creat Clear Calc Est GFR (MDRD) Af Amer Est GFR (MDRD) Non-Af BUN/Creatinine Ratio Glucose Calcium Total Bilirubin AST ALT Alkaline Phosphatase Total Protein Albumin Globulin Albumin/Globulin Ratio TSH Urine Color Straw Urine Clarity Clear Urine pH 8.0 Ur Specific [place] 1.010 Urine Protein Negative Urine Glucose (UA) Normal Urine Ketones Negative Urine Occult Blood Negative Urine Nitrite Negative Urine Bilirubin Negative Urine Urobilinogen Normal Ur Leukocyte Esterase Negative Urine RBC 0 SEEN Urine WBC 0 SEEN Ur Squamous Epith Cells 0 SEEN Urine Bacteria 0 SEEN Urine Mucus 0 SEEN Urine Opiates Screen NEGATIVE Urine Methadone Screen NEGATIVE Ur Barbiturates Screen NEGATIVE Ur Phencyclidine Scrn NEGATIVE Ur Amphetamines Screen NEGATIVE U Methamphetamin-MDMA NEGATIVE U Benzodiazepines Scrn NEGATIVE Urine Cocaine Screen NEGATIVE U Cannabinoids Screen POSITIVE H Ur Drug Screen Comment Ethyl Alcohol - Rhythm Strip Rhythm Strip: Sinus Rhythm Rate: 60 Ectopy: None - EKG Initial EKG Interpretation: Sinus Rhythm, - - Sinus at a rate of [address] segmentsNormal intervals Interpreted by emergency medicine physician Patient evaluated for anxiety as well as associated chest pressure and pinpoint tenderness in his right arm. He appears nontoxic in no acute distress. Patient is and anxious with pressured speech but otherwise behaving normally. He has goal-directed thoughts. He denies any homicidal or suicidal ideations. He is evaluated by case management in the ER who agrees that he does not need inpatient. He is given further outpatient resources. Patient and his mother do not feel that he is acutely manic right now. Patient is low risk for major cardiac event. He is PE RC negative. His cardiac work-up including EKG, chest x-ray and troponin are negative for any acute process. He is not having significant electrolyte abnormalities or signs of infection. I am not sure what to make of his chest pressure I think he stable for outpatient follow-up. Patient is not have any signs of alcohol withdrawal at this time. He is encouraged to continue to cut back on his drinking and eventually abstain from alcohol. Patient is counseled on signs and symptoms requiring return to the emergency room. Patient verbalizes agreement and understand this plan. Patient discharged home in stable and improved condition. ED Disposition - Plan for ED Patient: Disposition: Home or Assisted Living Diagnosis: Mood disorder, Chest pressure, Strain of right biceps Instructions: ED Stress React, ED Chest Pain NonCardiac, ED Strain Muscle Ext Referrals: Bib Alford MD [Primary Care Provider] - [facility] - Additional Instructions: Work-up here today was normal. Your heart and lungs look normal. I think this is more anxiety related. Take Tylenol or ibuprofen as needed for your arm pain. Please continue to follow-up with the counseling center. Return the emergency room with any worsening symptoms. Please continue to try and cut back on your drinking.
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
--- NOTE | 2020-04-18 21:57 | RAD_ITS ---
STUDY: X-RAY CHEST REASON FOR EXAM: Male, 24 years old. ANXIETY. CHEST PAIN TECHNIQUE: AP portable COMPARISON: October 23, 2014 FINDINGS: The lungs are clear and expanded. There is no demonstrated pleural abnormality. Normal size heart. Normal mediastinum and linh. Normal visualized pulmonary arteries. Normal visualized aortic arch and descending thoracic aorta. Normal visualized thoracic spine. Normal visualized ribs, clavicles, and shoulders. There is no demonstrated abnormality of the visualized soft tissue structures of the upper abdomen. No change since prior exam RAD/Chest 1 View (Portable) IMPRESSION: Normal x-ray examination of the chest. Electronically Signed: Joe Silverman MD at 22:36 EDT , Service support ,
[2020-04-18 21:58] LABS: Bacteria 0 SEEN /hpf (None Seen); Mucous, Urine 0 SEEN /hpf (<or=2+); Red Blood Cells-Urine 0 SEEN /hpf (0-5); Squamous Epithelial Cells - UA 0 SEEN /hpf (0-5); White Blood Cells 0 SEEN /hpf (0-5)
[2020-04-18 22:08] LABS: Absolute Neutrophil Count 2.7 X10^3/uL (2.0-7.7); Basophil# 0.05 X10^3/uL; Basophil% 0.9 % (0-1); Eosinophil# 0.07 X10^3/uL; Eosinophils% 1.3 % (0-5); Hematocrit 41.6 % (40-54); Hemoglobin 14.3 g/dL (13.0-16.5); Lymphocyte % 39.1 % (19-41); Mean Corp Hgb Conc 34.4 g/dL (32-36); Mean Corpuscular Hgb 31.6 pg (27.0-32.0); Mean Corpuscular Volume 91.8 fL (80-94); Mean Platelet Vol. 11.4 fl (6.2-12.0); Monocyte% 7.4 % (0-10); NRBC Flagged by Analyzer 0 % (0-5); Neutrophil # 2.73 X10^3/uL (2.7-7.7); Neutrophil % 50.9 % (47-70); Platelet Count 157 K/mm3 (150-450); RBC Distribution Width CV 12.1 % (11.6-14.6); RBC Distribution Width SD 41.1 fl (35.1-43.9); Red Blood Count 4.53 M/mm3 (4.6-6.2); White Blood Count 5.4 K/mm3 (4.4-11.0)
[2020-04-18 22:09] LABS: Color, Urine Straw (Yellow); Glucose, Dipstick Normal (Normal); Ketone-Dipstick Negative (Negative); Leukocyte Esterase-Dipstick Negative /ul (Negative); Nitrite-Dipstick Negative (Negative); Occult Blood-Urine Negative /ul (Negative); Protein-Dipstick Negative (Negative); Urine Bilirubin Dipstick Negative (Negative); Urine Clarity Clear (Clear); Urine Urobilinogen Normal (Normal)
[2020-04-18 22:17] LABS: ALB/GLOB Ratio 1.5 RATIO (0.9-2.4); AST(SGOT) 12 U/L (15-37); Alanine Aminotransfer ALT/SGPT 19 U/L (16-61); Albumin, Serum 4.3 g/dL (3.2-5.0); Alkaline Phosphatase 65 U/L (45-117); Anion Gap 5 (5-15); BUN 13 mg/dL (7-18); BUN/Creat Ratio 10.6 RATIO (10-20); Calcium,Total 8.8 mg/dL (8.5-10.1); Chloride 106 mmol/L (98-107); Creatinine, Serum 1.23 mg/dL (0.70-1.30); EST Glomerular Filtration Rate 78 mL/min (>60); Est Glom Filt Rate - Afr Amer 94 mL/min (>60); Estimated Creatinine Clearance 91.14 ml/min; Globulin 2.9 g/dL (2.2-4.2); Glucose 87 mg/dL (74-106); Potassium 3.8 mmol/L (3.5-5.1); Protein, Total 7.2 g/dL (6.4-8.2); Sodium Level 139 mmol/L (136-145); Thyroid Stim Hormone (TSH) 0.75 uIU/mL (0.358-3.74)
[2020-04-18 22:18] LABS: Alcohol, Blood (Medical)-Serum < 3.0 mg/dL
[2020-04-18 22:21] LABS: Amphetamine Urine VISTA NEGATIVE (<1000 ng/mL); Barbiturate Urine VISTA NEGATIVE (< 200 ng/mL); Benzodiazepine Urine VISTA NEGATIVE (< 200 ng/mL); Cocaine Urine VISTA NEGATIVE (< 300 ng/mL); Ecstacy Urine VISTA NEGATIVE (< 500 ng/mL); Methadone Urine VISTA NEGATIVE (< 300 ng/mL); PCP Urine VISTA NEGATIVE (< 25 ng/mL); THC Urine VISTA POSITIVE (< 50 ng/mL); Vista UDS pH Range 7
[2020-04-18 23:36] VITALS: BP 115/78; PULSE 74; RESP 16; O2SAT 99
== END 2020-04-18 23:37 | disposition home or self-care (01) ==
PROVIDERS: Emergency Provider Emergency Medicine; PCP Family Medicine
DX: F41.9 Anxiety disorder, unspecified (principal); F31.9 Bipolar disorder, unspecified; S46.211A Strain of muscle, fascia and tendon of other parts of biceps, right arm, initial encounter; X58.XXXA Exposure to other specified factors, initial encounter; F10.10 Alcohol abuse, uncomplicated
CPT/HCPCS: 71045; 80053; 80307; 80320; 81001; 84443; 85025; 93005; 99284; G0480

== ENCOUNTER 2020-05-11 19:07 | Emergency (ER) | payer MEDICAID, SELFPAY ==
[2020-05-11 19:08] VITALS: BP 143/83; PULSE 123; RESP 18; TEMP 36.7; O2SAT 96; BMI 23.6
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
[2020-05-11 20:12] LABS: Absolute Lymphocyte Count 1.81 X10^3/uL (0.83-4.51); Absolute Neutrophil Count 3.8 X10^3/uL (2.0-7.7); Basophil# 0.05 X10^3/uL; Basophil% 0.8 % (0-1); Eosinophil# 0.03 X10^3/uL; Eosinophils% 0.5 % (0-5); Hematocrit 41.4 % (40-54); Hemoglobin 14.5 g/dL (13.0-16.5); Lymphocyte # 1.81 X10^3/ul (4.0); Lymphocyte % 28.9 % (19-41); Mean Corpuscular Hgb 31.7 pg (27.0-32.0); Mean Corpuscular Volume 90.4 fL (80-94); Mean Platelet Vol. 11.3 fl (6.2-12.0); Monocyte# 0.56 X10^3/uL; Monocyte% 8.9 % (0-10); NRBC Flagged by Analyzer 0 % (0-5); Neutrophil % 60.6 % (47-70); Platelet Count 180 K/mm3 (150-450); RBC Distribution Width SD 39.8 fl (35.1-43.9); Red Blood Count 4.58 M/mm3 (4.6-6.2); White Blood Count 6.3 K/mm3 (4.4-11.0)
[2020-05-11 20:30] VITALS: RESP 16
[2020-05-11 20:30] LABS: Anion Gap 9 (5-15); BUN 17 mg/dL (7-18); BUN/Creat Ratio 16.8 RATIO (10-20); Calcium,Total 9.4 mg/dL (8.5-10.1); Chloride 108 mmol/L (98-107); Creatinine, Serum 1.01 mg/dL (0.70-1.30); EST Glomerular Filtration Rate 98 mL/min (>60); Est Glom Filt Rate - Afr Amer 118 mL/min (>60); Estimated Creatinine Clearance 110.99 ml/min; Glucose 82 mg/dL (74-106); Potassium 3.4 mmol/L (3.5-5.1); Sodium Level 141 mmol/L (136-145)
[2020-05-11 20:43] LABS: Amphetamine Urine VISTA NEGATIVE (<1000 ng/mL); Barbiturate Urine VISTA NEGATIVE (< 200 ng/mL); Benzodiazepine Urine VISTA NEGATIVE (< 200 ng/mL); Cocaine Urine VISTA NEGATIVE (< 300 ng/mL); Ecstacy Urine VISTA NEGATIVE (< 500 ng/mL); Methadone Urine VISTA NEGATIVE (< 300 ng/mL); PCP Urine VISTA NEGATIVE (< 25 ng/mL); THC Urine VISTA POSITIVE (< 50 ng/mL); Vista UDS pH Range 5
[2020-05-11 21:31] VITALS: RESP 16
[2020-05-11 22:35] VITALS: RESP 16
[2020-05-11 23:30] VITALS: BP 158/98; PULSE 72; RESP 16; O2SAT 99
[2020-05-12] VITALS (8 sets, daily range): BP systolic 144; BP diastolic 80; PULSE 60; RESP 14–16; O2SAT 100
== END 2020-05-12 07:13 ==
PROVIDERS: Emergency Provider Emergency Medicine; PCP Family Medicine
DX: F30.9 Manic episode, unspecified (principal)
CPT/HCPCS: 80048; 80307; 80320; 85025; 96372; 99283; G0480

== ENCOUNTER 2021-05-01 17:53 | Emergency (ER) | payer OTHER, MEDICAID, SELFPAY ==
[2021-05-01 17:56] VITALS: BP 142/114; PULSE 108; RESP 16; TEMP 37.6; O2SAT 97; BMI 25.8
[2021-05-01 18:33] LABS: Absolute Lymphocyte Count 1.95 X10^3/uL (0.83-4.51); Absolute Neutrophil Count 4.7 X10^3/uL (2.0-7.7); Basophil# 0.05 X10^3/uL; Basophil% 0.7 % (0-1); Eosinophil# 0.05 X10^3/uL; Eosinophils% 0.7 % (0-5); Hematocrit 43.8 % (40-54); Lymphocyte # 1.95 X10^3/ul (0.83-4.51); Lymphocyte % 26.9 % (19-41); Mean Corp Hgb Conc 34.2 g/dL (32-36); Mean Corpuscular Hgb 31.1 pg (27.0-32.0); Mean Corpuscular Volume 90.7 fL (80-94); Mean Platelet Vol. 11.5 fl (6.2-12.0); Monocyte# 0.45 X10^3/uL; Monocyte% 6.2 % (0-10); NRBC Flagged by Analyzer 0 % (0-5); Neutrophil # 4.73 X10^3/uL (2.7-7.7); Neutrophil % 65.2 % (47-70); Platelet Count 160 K/mm3 (150-450); RBC Distribution Width CV 11.8 % (11.6-14.6); RBC Distribution Width SD 38.9 fl (35.1-43.9); Red Blood Count 4.83 M/mm3 (4.6-6.2); White Blood Count 7.3 K/mm3 (4.4-11.0)
[2021-05-01 18:36] LABS: Anion Gap 6 (5-15); BUN 13 mg/dL (7-18); BUN/Creat Ratio 13.7 RATIO (10-20); Calcium,Total 9.4 mg/dL (8.5-10.1); Chloride 106 mmol/L (98-107); Creatinine, Serum 0.95 mg/dL (0.70-1.30); EST Glomerular Filtration Rate 104 mL/min (>60); Est Glom Filt Rate - Afr Amer 126 mL/min (>60); Glucose 88 mg/dL (74-106); Potassium 3.6 mmol/L (3.5-5.1); Sodium Level 138 mmol/L (136-145)
[2021-05-01 19:05] LABS: Amphetamine Urine VISTA NEGATIVE (<1000 ng/mL); Barbiturate Urine VISTA NEGATIVE (< 200 ng/mL); Benzodiazepine Urine VISTA NEGATIVE (< 200 ng/mL); Cocaine Urine VISTA NEGATIVE (< 300 ng/mL); Ecstacy Urine VISTA NEGATIVE (< 500 ng/mL); Methadone Urine VISTA NEGATIVE (< 300 ng/mL); PCP Urine VISTA NEGATIVE (< 25 ng/mL); THC Urine VISTA POSITIVE (< 50 ng/mL); Vista UDS pH Range 7
--- NOTE | 2021-05-01 19:09 | EX.ED.VIS.PS ---
HPI HPI - Psych History of Present Illness Chief Complaint: Mental Health Narrative Narrative: Patient is brought to the ED by police department, apparently he made threats to hurt his girlfriend. When I talked to him he said these were empty threats he does not want to act on it especially because he has a child with this lady, apparently he just could not take it because she was try to get a restraining order on him and that would mean that he could not see his child. He has no suicidal ideation he has no thoughts of harming anyone at this time. [facility] Medical History (Updated 05/01/21 @ 19:[address] Phillip Paul MD) Bipolar 1 disorder Depression Depression Home Medications divalproex [Depakote ER] 500 mg PO DAILY 05/01/21 [History Last Taken Unknown] quetiapine [Seroquel] 50 mg PO QHS 05/01/21 [History Last Taken Unknown] Allergy/AdvReac Type Severity Reaction Status Date / Time No Known Allergies Allergy Verified 05/01/21 17:54 Social History Smoking Status: Current every day smoker tobacco type: cigarettes ROS ROS ED ROS Narrative Past medical history: Bipolar disorder Medications: Reviewed Social history: Noncontributory Review of systems: All systems negative except as indicated General: No fever Eyes: No visual changes ENT: No upper airway congestion, normal voice Neck: No neck pain Cardiovascular: No chest pain Respiratory: No shortness of breath or cough Gastrointestinal: No abdominal pain, nausea vomiting or diarrhea Genitourinary: No dysuria Musculoskeletal: Denies myalgias no difficulty with ambulation Skin: No rash Neurological: No memory loss, confusion or any focal weakness Psych: Behavioral problems as in HPI Hematologic: No easy bleeding or easy bruising EXAM Physical Exam Narrative Exam Narrative: Physical exam General: Patient is hyper alert, his speech is somewhat pressured Head: Normocephalic, Atraumatic Eyes: Conjunctiva not pale ENT: Moist mucous membranes Neck: Supple, Nontender, No lymphadenopathy Cardiovascular: Regular rate, Regular rhythm Respiratory: No distress, CTA bilaterally Abdomen: Soft, Nontender, Nondistended Back: Nontender, Normal Inspection. Negative for: CVA tenderness Extremities: Nontender, No edema Skin: Normal color, No rash Neurological: Alert, Normal Strength, Normal Sensation Psychological: He has pressured speech, he does not have any hallucinations, some flight of ideas no tangential thoughts, slight psychomotor agitation. Const Vital Signs: 05/01/21 17:56 Temperature 99.6 F H Temperature Source Temporal Pulse Rate 108 H Respiratory Rate 16 Blood Pressure 142/114 H Blood Pressure Mean 123 Pulse Ox 97 Oxygen Delivery Method Room Air MDM MDM MDM Narrative Medical decision making narrative: Patient is slightly manic, I do believe that he would not hurt someone however I will have him evaluated by crisis. Lab Data Labs: Laboratory Results - last 24 hr 05/01/21 05/01/21 05/01/21 18:10 18:10 18:10 WBC 7.3 RBC 4.83 Hgb 15.0 Hct 43.8 MCV 90.7 MCH 31.1 MCHC 34.2 RDW Std Deviation 38.9 RDW Coeff of Issa 11.8 Plt Count 160 MPV 11.5 Immature Gran % (Auto) 0.300 Neut % (Auto) 65.2 Lymph % (Auto) 26.9 [place] % (Auto) 6.2 Eos % (Auto) 0.7 Baso % (Auto) 0.7 Absolute Neuts (auto) 4.7 Absolute Lymphs (auto) 1.95 Nucleated RBC % 0 Sodium 138 Potassium 3.6 Chloride 106 Carbon Dioxide 26.0 Anion Gap 6 BUN 13 Creatinine 0.95 Estim Creat Clear Calc 117.00 Est GFR (MDRD) Af Amer 126 Est GFR (MDRD) Non-Af 104 BUN/Creatinine Ratio 13.7 Glucose 88 Calcium 9.4 Urine Opiates Screen Urine Methadone Screen Ur Barbiturates Screen Ur Phencyclidine Scrn Ur Amphetamines Screen U Methamphetamin-MDMA U Benzodiazepines Scrn Urine Cocaine Screen U Cannabinoids Screen Ur Drug Screen Comment Ethyl Alcohol 4.0 05/01/21 18:18 WBC RBC Hgb Hct MCV MCH MCHC RDW Std Deviation RDW Coeff of Issa Plt Count MPV Immature Gran % (Auto) Neut % (Auto) Lymph % (Auto) [place] % (Auto) Eos % (Auto) Baso % (Auto) Absolute Neuts (auto) Absolute Lymphs (auto) Nucleated RBC % Sodium Potassium Chloride Carbon Dioxide Anion Gap BUN Creatinine Estim Creat Clear Calc Est GFR (MDRD) Af Amer Est GFR (MDRD) Non-Af BUN/Creatinine Ratio Glucose Calcium Urine Opiates Screen NEGATIVE Urine Methadone Screen NEGATIVE Ur Barbiturates Screen NEGATIVE Ur Phencyclidine Scrn NEGATIVE Ur Amphetamines Screen NEGATIVE U Methamphetamin-MDMA NEGATIVE U Benzodiazepines Scrn NEGATIVE Urine Cocaine Screen NEGATIVE U Cannabinoids Screen POSITIVE H Ur Drug Screen Comment Ethyl Alcohol Discharge Plan Triage Chief Complaint: Mental Health ED Provider: Phillip Paul Dx/Rx/DC Orders Clinical Impression: Bipolar 1 disorder Prescriptions: No Action divalproex [Depakote ER] 500 mg Tablet Extended Release 24 Hr 500 mg PO DAILY RF: 0 quetiapine [Seroquel] 50 mg Tablet 50 mg PO QHS RF: 0 Primary Care Provider: Bib Alford Referrals: Bib Alford MD [Primary Care Provider] -
--- NOTE | 2021-05-01 19:17 | ED.RN ---
CALLED CRISIS TO SEE THIS PT, JOHN IS [employer] [employer] [facility]PARATION
--- NOTE | 2021-05-01 20:25 | ED.RN ---
[facility]ISIS AT THE BEDSIDE
[2021-05-01 21:30] VITALS: PULSE 73; RESP 18; O2SAT 98
[2021-05-01] MEDS: QUEtiapine 100 MG Tablet PO (21:49)
[2021-05-01 22:59] VITALS: BP 130/90; PULSE 75; RESP 18
[2021-05-02 00:15] VITALS: RESP 18
--- NOTE | 2021-05-02 01:21 | ED.RN ---
patient has been accepted at [facility] dr. arcos [phone]
--- NOTE | 2021-05-02 01:29 | ED.RN ---
physicians called for transport eta 3 hours
[2021-05-02 01:43] VITALS: BP 130/90; PULSE 75; RESP 18; TEMP 36.7; O2SAT 98
== END 2021-05-02 05:07 ==
LOC: ED 19:05
PROVIDERS: Emergency Provider Emergency Medicine; PCP Family Medicine
DX: F31.9 Bipolar disorder, unspecified (principal); F17.210 Nicotine dependence, cigarettes, uncomplicated
CPT/HCPCS: 36415; 80048; 80307; 82077; 85025; 99285

== ENCOUNTER 2021-11-20 23:45 | Emergency (ER) | payer OTHER, MEDICAID, SELFPAY ==
[2021-11-20 23:46] VITALS: BP 153/67; PULSE 68; RESP 18; TEMP 35.9; O2SAT 100; BMI 24.1
[2021-11-21] MEDS: Haloperidol Lactate 5 MG/ML Vial IV (00:16)
[2021-11-21] MEDS: 0.9% Normal Saline 1,000 ML 999 ML IV (00:16)
[2021-11-21] MEDS: QUEtiapine 100 MG Tablet PO (00:49)
--- NOTE | 2021-11-21 00:49 | EX.ED.DYSGE1 ---
HPI History of Present Illness Chief Complaint: Nausea/Vomiting Narrative Narrative: Patient is a 26-year-old male with history of marijuana use/abuse. He states he has been cutting back over the past few months. However he continues to use multiple times a day and has had cannabis hyperemesis syndrome in the past. Patient states that today after using he began having multiple bouts of vomiting which was not controllable at home with [id number] medications and time. He states he is needed to be seen in the ER for [facility] in the past and therefore presents at this time for symptom control. [facility] Medical History Bipolar 1 disorder Depression Depression Home Medications divalproex [Depakote ER] 500 mg PO DAILY 05/01/21 [History Last Taken Unknown] quetiapine [Seroquel] 50 mg PO QHS 05/01/21 [History Last Taken Unknown] Allergy/AdvReac Type Severity Reaction Status Date / Time No Known Allergies Allergy Verified 11/20/21 23:51 Social History Smoking Status: Current every day smoker tobacco type: cigarettes ROS ROS ED Constitutional Constitutional ED: Denies chills or fever(s) ENT ENT ED: Reports sore throat Cardiovascular Cardiovascular: Denies chest pain Respiratory/Chest Respiratory/Chest: Denies cough or dyspnea Gastrointestinal Gastrointestinal: Reports nausea and vomiting; Denies abdominal pain or diarrhea Genitourinary Genitourinary ED: Denies dysuria Musculoskeletal Musculoskeletal: Denies myalgias Integumentary Denies rash Neurologic Neurologic: Denies headache(s) Psychiatric Psychiatric: Reports anxiety Hematologic/Lymphatic Hematologic/Lymphatic: Denies easy bleeding or easy bruising EXAM Physical Exam Const Vital Signs: 11/20/21 23:46 Temperature 96.6 F L Temperature Source Temporal Pulse Rate 68 Respiratory Rate 18 Blood Pressure 153/67 H Blood Pressure Mean 95 Pulse Ox 100 Oxygen Delivery Method Room Air Positive well nourished and well developed General Appearance ED: well developed HEENT Reports dry mucous membranes Mouth ED: Yes dry mucous membranes Mouth: dry mucous membranes Eyes PERRL and EOMs intact bilaterally Neck supple Resp normal respiratory effort and clear to auscultation bilaterally Cardio regular rate and regular rhythm GI non-tender, non-distended and no masses GI Narrative: Abdomen is soft nontender nondistended with hyperactive bowel sounds no voluntary guarding or rigidity no pulsatile mass Palpation: soft Extremity normal to inspection Neuro oriented x3 and CN's II-XII intact bilaterally Sensorium / Orientation: alert Psych Mood & Affect: anxious Skin no rashes or lesions noted Skin Narrative: Skin turgor is increased MDM MDM MDM Narrative Medical decision making narrative: Patient presented to the ER slightly hypertensive but otherwise with stable vitals and a soft nonsurgical abdomen. His history and exam is consistent with mild dehydration from cannabis hyperemesis syndrome. At this time I do not feel there is need for imaging or laboratory studies based on his history and exam and I feel the patient just needs IV hydration and symptom control. Patient was given 1 L of fluid and 5 mg of IV Haldol and had resolution of his symptoms. He reported feeling better and at this time will be discharged home. Discharge Plan Triage Chief Complaint: Nausea/Vomiting ED Provider: Jimenez Hoffman Dx/Rx/DC Orders Clinical Impression: Cannabis hyperemesis syndrome concurrent with and due to cannabis abuse Instructions: ED Marijuana Abuse Prescriptions: No Action divalproex [Depakote ER] 500 mg Tablet Extended Release 24 Hr 500 mg PO DAILY RF: 0 quetiapine [Seroquel] 50 mg Tablet 50 mg PO QHS RF: 0 Stand Alone Forms: ED Work / School Excuse Primary Care Provider: Bib Alford Referrals: Bib Alford MD [Primary Care Provider] - Disposition Disposition: Home, Self Care
[2021-11-21 01:17] VITALS: BP 134/76; PULSE 103; RESP 16; O2SAT 100
== END 2021-11-21 01:18 | disposition home or self-care (01) ==
PROVIDERS: Emergency Provider Emergency Medicine; PCP Family Medicine; Visit Provider Emergency Medicine
DX: F12.188 Cannabis abuse with other cannabis-induced disorder (principal); R11.2 Nausea with vomiting, unspecified; F17.210 Nicotine dependence, cigarettes, uncomplicated
CPT/HCPCS: 99284; J7030; A4216

== ENCOUNTER 2022-05-11 14:37 | Emergency (ER) | payer MEDICAID, SELFPAY ==
[2022-05-11 14:38] VITALS: BP 136/95; PULSE 57; RESP 17; TEMP 35.7; O2SAT 99; BMI 22.8
--- NOTE | 2022-05-11 15:25 | EX.ED.DYSGE1 ---
HPI History of Present Illness Chief Complaint: Nausea/Vomiting Informant: patient Narrative Narrative: Patient presents with nausea vomiting and inability to keep any food or fluids down. He was feeling fine yesterday. He smoked delta 8 at about 8 PM. He states this is supposed to be a healthy substitute for marijuana. About 2 hours later he started with symptoms and it has not stopped. He has some epigastric discomfort but overall no real abdominal pain. No blood in the vomitus. No diarrhea. He also states his anxiety is up but he does have a history of anxiety. He takes Seroquel but did not take it last night because of the vomiting. He was on Depakote but has not taken that for at least a week or so until he talks with his counselor because he did not think it made a difference for him. This patient has a history of hyperemesis from marijuana. He stopped smoking marijuana some months ago because of significant problems with nausea and vomiting. His symptoms got better. This seems similar but he did not think that the delta 8 would cause this. When I look up delta 8, it appears to be an isomer of THC so it is certainly quite close in action. PFSH PFS Medical History Bipolar 1 disorder Depression Depression Home Medications quetiapine 50 mg tablet (Seroquel) 50 mg PO QHS PRN Insomnia 05/01/21 [History Last Taken Unknown] ondansetron 4 mg disintegrating tablet 4 mg PO Q8H PRN nausea and vomiting #10 tabs 05/11/22 [Rx Last Taken Unknown] Allergy/AdvReac Type Severity Reaction Status Date / Time No Known Allergies Allergy Verified 05/11/22 14:41 Social History Smoking Status: Current every day smoker tobacco type: cigarettes ROS ROS ED Constitutional Constitutional ED: Denies fever(s) Eyes Eyes: Denies diplopia ENT ENT ED: Denies rhinorrhea Cardiovascular Cardiovascular: Denies chest pain or palpitations Respiratory/Chest Respiratory/Chest: Denies cough or dyspnea Gastrointestinal Gastrointestinal: Reports abdominal pain, nausea and vomiting; Denies constipation, diarrhea or melena Genitourinary Genitourinary ED: Denies hematuria Musculoskeletal Musculoskeletal: Denies back pain Integumentary Denies rash Neurologic Neurologic: Denies headache(s), paresthesias or weakness Psychiatric Psychiatric: Reports anxiety; Denies depression, suicidal ideation or suicidal thoughts Endocrine Endocrinology: Denies polydipsia or polyuria Hematologic/Lymphatic Hematologic/Lymphatic: Denies easy bleeding or easy bruising Allergic/Immunologic Allergic/Immunologic ED: Denies urticaria EXAM Physical Exam Const Vital Signs: 05/11/22 14:38 Temperature 96.2 F L Temperature Source Temporal Pulse Rate 57 L Respiratory Rate 17 Blood Pressure 136/95 H Blood Pressure Mean 108 Pulse Ox 99 Oxygen Delivery Method Room Air Positive well nourished and well developed General Appearance ED: well developed HEENT Reports dry mucous membranes HEENT Narrative: Patient does have very dry mucous membranes on exam. Mouth ED: Yes dry mucous membranes Mouth: dry mucous membranes Eyes EOMs intact bilaterally General Eye ED: Negative for scleral icterus Neck supple Chest Wall inspection of chest normal Resp normal respiratory effort and clear to auscultation bilaterally Cardio regular rate and regular rhythm Rate: other Other Details: Patient's heart rate for me is closer to 90 and not the 57 he came in with. But he is also anxious now. It sounds quite regular. GI normal to inspection, nondistended, normoactive bowel sounds, non-tender and non-distended GI Narrative: Patient is flat, normal bowel sounds, no notable tenderness. No mass. Back/Spine no CVA tenderness Extremity normal to inspection General Extremety ED: Negative for edema or tenderness General Extremity: Negative for edema Neuro oriented x3 Sensorium / Orientation: alert Psych Mood & Affect: anxious Skin no rashes or lesions noted MDM MDM MDM Narrative Medical decision making narrative: Patient CBC is normal. Electrolytes liver function test are normal other than a mild elevation of bilirubin at 1.2. Lipase is normal. Tox is positive for cannabis. Patient's recheck. He states that his nausea is gone he has barely any discomfort. He wants to go home now. He states that what will help him is a hot shower. I will write for [employer]. We discussed reasons to return. His abdomen is now benign. Lab Data Attestation: I reviewed the patient's lab results. Labs: Laboratory Results - last 24 hr 05/11/22 05/11/22 05/11/22 15:40 15:40 16:30 WBC 10.6 RBC 4.85 Hgb 15.1 Hct 44.1 MCV 90.9 MCH 31.1 MCHC 34.2 RDW Std Deviation 40.1 RDW Coeff of Issa 12.1 Plt Count 230 MPV 11.5 Immature Gran % (Auto) 0.500 Neut % (Auto) 79.0 H Lymph % (Auto) 15.1 L [place] % (Auto) 4.4 Eos % (Auto) 0.2 Baso % (Auto) 0.8 Absolute Neuts (auto) 8.4 H Absolute Lymphs (auto) 1.60 Nucleated RBC % 0 Sodium 140 Potassium 3.7 Chloride 108 H Carbon Dioxide 22.0 Anion Gap 10 BUN 13 Creatinine 1.17 Estim Creat Clear Calc 93.69 Est GFR (MDRD) Af Amer 98 Est GFR (MDRD) Non-Af 81 BUN/Creatinine Ratio 11.1 Glucose 146 H Calcium 10.7 H Total Bilirubin 1.20 H AST 18 ALT 23 Alkaline Phosphatase 56 Total Protein 7.9 Albumin 4.9 Globulin 3.0 Albumin/Globulin Ratio 1.6 Lipase 27 L Urine Opiates Screen NEGATIVE Urine Methadone Screen NEGATIVE Ur Barbiturates Screen NEGATIVE Ur Phencyclidine Scrn NEGATIVE Ur Amphetamines Screen NEGATIVE MDMA (Ecstasy) Screen NEGATIVE U Benzodiazepines Scrn NEGATIVE Urine Cocaine Screen NEGATIVE U Cannabinoids Screen POSITIVE H Ur Drug Screen Comment Discharge Plan Triage Chief Complaint: Nausea/Vomiting ED Provider: Todd La Dx/Rx/DC Orders Clinical Impression: Nausea and vomiting, Cannabis hyperemesis syndrome concurrent with and due to cannabis abuse Instructions: Cannabinoid Hyperemesis Syndrome Prescriptions: New ondansetron 4 mg tablet,disintegrating 4 mg PO Q8H PRN (Reason: nausea and vomiting) Qty: 10 0RF No Action quetiapine [Seroquel] 50 mg Tablet 50 mg PO QHS PRN (Reason: Insomnia) Primary Care Provider: Bib Alford Referrals: Bib Alford MD [Primary Care Provider] - 3-5 Days if not improving Disposition Disposition: Home, Self Care
[2022-05-11] MEDS: 0.9% Normal Saline 1,000 ML 1000 ML IV (15:34)
[2022-05-11] MEDS: Ondansetron 4 MG/2 ML Vial IV (15:35)
[2022-05-11 15:50] LABS: Absolute Neutrophil Count 8.4 X10^3/uL (2.0-7.7); Basophil# 0.09 X10^3/uL; Basophil% 0.8 % (0-1); Eosinophil# 0.02 X10^3/uL; Eosinophils% 0.2 % (0-5); Hematocrit 44.1 % (40-54); Hemoglobin 15.1 g/dL (13.0-16.5); Lymphocyte % 15.1 % (19-41); Mean Corp Hgb Conc 34.2 g/dL (32-36); Mean Corpuscular Hgb 31.1 pg (27.0-32.0); Mean Corpuscular Volume 90.9 fL (80-94); Mean Platelet Vol. 11.5 fl (6.2-12.0); Monocyte# 0.47 X10^3/uL; Monocyte% 4.4 % (0-10); NRBC Flagged by Analyzer 0 % (0-5); Neutrophil # 8.39 X10^3/uL (2.7-7.7); Platelet Count 230 K/mm3 (150-450); RBC Distribution Width CV 12.1 % (11.6-14.6); RBC Distribution Width SD 40.1 fl (35.1-43.9); Red Blood Count 4.85 M/mm3 (4.6-6.2); White Blood Count 10.6 K/mm3 (4.4-11.0)
[2022-05-11 16:15] LABS: ALB/GLOB Ratio 1.6 RATIO (0.9-2.4); AST(SGOT) 18 U/L (15-37); Alanine Aminotransfer ALT/SGPT 23 U/L (16-61); Albumin, Serum 4.9 g/dL (3.2-5.0); Alkaline Phosphatase 56 U/L (45-117); Anion Gap 10 (5-15); BUN 13 mg/dL (7-18); BUN/Creat Ratio 11.1 RATIO (10-20); Calcium,Total 10.7 mg/dL (8.5-10.1); Chloride 108 mmol/L (98-107); Creatinine, Serum 1.17 mg/dL (0.70-1.30); EST Glomerular Filtration Rate 81 mL/min (>60); Est Glom Filt Rate - Afr Amer 98 mL/min (>60); Estimated Creatinine Clearance 93.69 ml/min; Glucose 146 mg/dL (74-106); Lipase 27 U/L (73-393); Potassium 3.7 mmol/L (3.5-5.1); Protein, Total 7.9 g/dL (6.4-8.2); Sodium Level 140 mmol/L (136-145)
[2022-05-11] MEDS: 0.9% Normal Saline 1,000 ML 999 ML IV (16:37)
[2022-05-11 17:01] LABS: Amphetamine Urine VISTA NEGATIVE (<1000 ng/mL); Barbiturate Urine VISTA NEGATIVE (< 200 ng/mL); Benzodiazepine Urine VISTA NEGATIVE (< 200 ng/mL); Cocaine Urine VISTA NEGATIVE (< 300 ng/mL); Ecstacy Urine VISTA NEGATIVE (< 500 ng/mL); Methadone Urine VISTA NEGATIVE (< 300 ng/mL); PCP Urine VISTA NEGATIVE (< 25 ng/mL); THC Urine VISTA POSITIVE (< 50 ng/mL); Vista UDS pH Range 7
== END 2022-05-11 18:54 | disposition home or self-care (01) ==
PROVIDERS: Emergency Provider Emergency Medicine; PCP Family Medicine; Visit Provider Emergency Medicine
DX: R11.2 Nausea with vomiting, unspecified (principal); F12.188 Cannabis abuse with other cannabis-induced disorder; F31.9 Bipolar disorder, unspecified; R10.13 Epigastric pain; F41.9 Anxiety disorder, unspecified; Z87.891 Personal history of nicotine dependence
CPT/HCPCS: 80053; 80307; 83690; 85025; 99283; J7030; A4216; J2405; J3490

== ENCOUNTER 2023-05-14 05:13 | Emergency (ER) | payer MEDICAID, SELFPAY ==
[2023-05-14 05:14] VITALS: BP 154/97; PULSE 75; RESP 18; TEMP 36; O2SAT 100; BMI 24.8
--- NOTE | 2023-05-14 05:49 | EX.ED.DYSGE1 ---
HPI History of Present Illness Chief Complaint: Complaint Informant: patient Narrative Narrative: Patient is a 27-year-old male with past medical history of bipolar disorder. He states he recently had sexual intercourse that was unprotected and now has developed frequency of urination with testicular pain and dysuria. He denies any discharge from the penis but states this feels similar nature to the last time he had chlamydia. Secondary to his he presents for evaluation [facility] Medical History (Updated 05/14/23 @ 05:[address] Jimenez Hoffman DO) Bipolar 1 disorder Chlamydia Depression Depression Home Medications doxycycline hyclate 100 mg capsule 100 mg PO BID 7 days #14 caps 05/14/23 [Rx Last Taken Unknown] Allergy/AdvReac Type Severity Reaction Status Date / Time No Known Allergies Allergy Verified 05/14/23 05:18 Social History Smoking Status: Current every day smoker tobacco type: cigarettes and e-cigarettes ROS ROS ED Constitutional Constitutional ED: Denies chills or fever(s) ENT ENT ED: Denies sore throat Cardiovascular Cardiovascular: Denies chest pain Respiratory/Chest Respiratory/Chest: Denies cough or dyspnea Gastrointestinal Gastrointestinal: Denies abdominal pain, diarrhea, nausea or vomiting Genitourinary Genitourinary ED: Reports dysuria and urinary frequency Musculoskeletal Musculoskeletal: Denies myalgias Integumentary Denies rash Neurologic Neurologic: Denies headache(s) Hematologic/Lymphatic Hematologic/Lymphatic: Denies easy bleeding or easy bruising EXAM Physical Exam Const Vital Signs: 05/14/23 05:14 Temperature 96.8 F L Temperature Source Temporal Pulse Rate 75 Respiratory Rate 18 Blood Pressure 154/97 H Blood Pressure Mean 116 Pulse Ox 100 Oxygen Delivery Method Room Air Positive well nourished and well developed General Appearance ED: well developed HEENT HEENT Narrative: Normocephalic atraumatic Eyes PERRL and EOMs intact bilaterally Neck supple Resp normal respiratory effort and clear to auscultation bilaterally Cardio regular rate and regular rhythm Narrative: Patient deferred Extremity normal to inspection Neuro oriented x3 and CN's II-XII intact bilaterally Sensorium / Orientation: alert Psych mental status grossly normal Skin no rashes or lesions noted MDM MDM MDM Narrative Medical decision making narrative: Patient presented to the ER afebrile. He reported a recent sexual experience/encounter without protection. After that he developed urinary frequency with dysuria and some testicular discomfort which is concerning for an STD. As gonorrhea and chlamydia the 2 most common STDs in [place] a urine sample be obtained to check for this. However as he has concern and symptoms that are consistent with that he will be treated with Rocephin and a 7-day course of doxycycline. As he does not have signs of systemic infection there is no need for further work-up and patient is otherwise safe for discharge. History & Record Review Discussion w/independent historian: Patient Discharge Plan Triage Chief Complaint: Complaint ED Provider: Jimenez Hoffman Dx/Rx/DC Orders Clinical Impression: Potential exposure to STD, Bipolar 1 disorder Instructions: ED STI Male Treated Prescriptions: New doxycycline hyclate 100 mg capsule 100 mg PO BID 7 Days Qty: 14 0RF Primary Care Provider: Bib Alford Referrals: Bib Alford MD [Primary Care Provider] - Activity Restrictions/Additional Instructions: With the shot of Rocephin you received in the ER as well as the doxycycline twice a day for 1 week you have been treated for gonorrhea and chlamydia. Please refrain from sexual activity until you have finished the doxycycline. If you have any further concerns please return to the ER for repeat evaluation Disposition Disposition: Home, Self Care
[2023-05-14] MEDS: Ceftriaxone 500 MG Vial IM (06:05)
[2023-05-14] MEDS: Doxycycline 100 MG CAPSULE PO (06:05)
== END 2023-05-14 06:19 | disposition home or self-care (01) ==
PROVIDERS: Emergency Provider Emergency Medicine; PCP Family Medicine; Visit Provider Emergency Medicine
DX: Z20.2 Contact with and (suspected) exposure to infections with a predominantly sexual mode of transmission (principal); F31.9 Bipolar disorder, unspecified; R35.0 Frequency of micturition; R30.0 Dysuria; F17.210 Nicotine dependence, cigarettes, uncomplicated
CPT/HCPCS: 87491; 87591; 96372; 99283

== ENCOUNTER 2023-08-28 16:59 | Observation (INO) | payer MEDICAID, SELFPAY ==
[2023-08-28] VITALS (8 sets, daily range): BP systolic 134–157; BP diastolic 60–98; PULSE 59–68; RESP 14–16; TEMP 36.3–36.9; O2SAT 95–100; BMI 24.1; BMI 24.0
--- NOTE | 2023-08-28 17:12 | CT_ITS ---
We are attempting to reach an attending provider to discuss findings. An addendum with communication details will be sent when the communication is complete. INDICATION: RLQ pain EXAMINATION: CT Abdomen And Pelvis W/ Contrast Injection TECHNIQUE: Helically acquired images were obtained of the abdomen and pelvis after IV contrast. A radiation dose optimization technique was used for this scan. IV Contrast dosage and agent: IV 100mL [id number] Oral contrast: None. COMPARISON: None. FINDINGS: Visualized lung bases: Unremarkable Liver: Mild periportal edema. Gallbladder: Unremarkable Spleen: Unremarkable Pancreas: Unremarkable Adrenal Glands: Unremarkable Kidneys: Unremarkable Vasculature: Unremarkable GI Tract: The appendix is mildly dilated measuring up to 8 mm in diameter. The wall is hyperenhancing. There is surrounding mesenteric fat stranding. Mild circumferential wall thickening of the terminal ileum with surrounding mesenteric fat stranding. Lymphadenopathy: None Peritoneum: Small volume free fluid in the pelvis. Bladder: Unremarkable Reproductive organs: Unremarkable Bones/Soft tissues: No suspicious osseous or soft tissue lesions CT/Abdomen/Pelvis W IV Cont ONLY IMPRESSION: Findings suspicious for acute nonruptured appendicitis. No focal fluid collection or free air. Mild wall thickening of the terminal ileum with surrounding inflammatory changes could represent terminal ileitis, either primary or secondary related to the adjacent appendicitis. Electronically Signed: Bratolo Kebede MD at 18:30 EST ,
--- NOTE | 2023-08-28 17:14 | ED.VIS.GI ---
HPI HPI - GI History of Present Illness Chief Complaint: Nausea/Vomiting Narrative Narrative: 27-year-old male presents with his mother because of nausea, vomiting, diarrhea that has had for at least a week. He states that while his nausea is improving, he still having multiple episodes of nonbloody diarrhea. He also complains of abdominal pain in the right upper and lower quadrant as well. Although he has had a longstanding GI issues and is supposed to be getting follow-up with gastroenterology, he and his mother state that they [facility] today, and were sent at their discretion for hydration. He states he had a fever which has resolved. He is continued to have nausea and vomiting, but that has improved to where he has only vomited once in the last 24 hours. However, his diarrhea is continuing and getting worse. [facility] Medical History (Updated 08/28/23 @ 18:54 by Yvon Freeman MD) Bipolar 1 disorder Chlamydia Depression Depression Nausea, vomiting and diarrhea Home Medications NK 08/28/23 [History Last Taken Unknown] Allergy/AdvReac Type Severity Reaction Status Date / Time No Known Allergies Allergy Verified 08/28/23 16:35 Social History Smoking Status: Current every day smoker tobacco type: cigarettes and e-cigarettes ROS ROS ED ROS Narrative Constitutional: No fever, no chills. HEENT: No sore throat. No neck pain. No loss of vision. No rhinorrhea. Cardiovascular: No chest pain. No palpitations. No pedal edema. Respiratory: No cough, no shortness of breath. Abdominal: Positive nausea and vomiting-resolving. Multiple episodes of diarrhea, nonbloody, multiple in the last 24 hours. Planes of pain in right upper to lower quadrants. Genitourinary: No dysuria. No hematuria. Musculoskeletal: No myalgias. No arthralgias. Neurologic: No headaches. No dizziness. No lightheadedness. Skin: No rash. No change in color. Psychiatric: No depression. No anxiety. EXAM Physical Exam Narrative Exam Narrative: Afebrile. Vital signs noted. Nontoxic-appearing. HEENT: Normocephalic. Atraumatic. PERRL, EOMI. Neck soft and supple. No point tenderness or step off. Cardiovascular: Regular rate and rhythm. No murmurs, rubs, or gallops appreciated. Respiratory: No tachypnea. Lungs clear to auscultation bilaterally. Gastrointestinal: Abdomen soft, mild tenderness in right flank and right lower quadrant with normoactive bowel sounds. No rebound or guarding. Minimal tenderness over McBurney's point. Negative Laws sign. Neurological: Awake. Alert. Nonfocal, nonlateralizing. Skin: No rash. Normal color. No pallor. Musculoskeletal: No pedal edema. Full range of motion extremities. Const Vital Signs: 08/28/23 17:00 08/28/23 17:00 Temperature 98.4 F Temperature Source Temporal Pulse Rate 66 Respiratory Rate 16 Respiratory Effort Normal Non-Labored Respiratory Depth Normal Respiratory Pattern Normal Blood Pressure 141/71 H Blood Pressure Mean 94 Pulse Ox 98 Oxygen Delivery Method Room Air Room Air MDM MDM MDM Narrative Medical decision making narrative: In the differential diagnosis is gastroenteritis versus infectious colitis. Given his longstanding GI problems he may have undiagnosed Crohn disease. There is also concern with his right lower quadrant pain for appendicitis. I reviewed his prior records and he has had cannabis induced hyperemesis. He may also have a pancreatitis but he does not have tenderness in the epigastrium and his nausea and vomiting is resolving. We will check a lipase along with CBC and CMP. I do feel CT imaging is indicated. He will be bolused normal saline 1 L intravenously and administered ondansetron 4 mg intravenously. I reviewed his laboratory work and he has a normal white count of 4.9, hemoglobin normal at 14.8, hematocrit 44.3, platelet count slightly low at 144 which I think is nonspecific, sodium normal at 137, potassium normal at 4.4 with chloride 103. BUN normal at 11 with creatinine 1.0, glucose appropriately elevated at 93 with anion gap low at 4. I see no evidence of dehydration. Upon repeat examination he is still having mild pain in the right lower quadrant. CT of the abdomen pelvis with IV contrast is consistent with nonruptured appendicitis. However, he may have more of the terminal ileitis as well. The appendix is dilated to 8 mm. I did receive a call from the radiologist and I was able to review the CT results as well. He will be started on Zosyn, and administered morphine 4 mg for analgesia. I discussed patient with Dr. Ko. In review of the radiology report, there is concern about terminal ileitis adjacent to an acute appendicitis. When asked when the pain in the right lower quadrant started, patient states that that was more today than his longstanding GI issues. Patient will be taken to the OR by surgery and admitted for acute appendicitis. Patient is in stable condition. History & Record Review Discussion w/independent historian: Patient and Family Additional record(s) reviewed:: Prior ED visit and Prior labs Lab Data Attestation: I reviewed the patient's lab results. Labs: Laboratory Results - last 24 hr 08/28/23 17:29 WBC 4.9 RBC 4.88 Hgb 14.8 Hct 44.3 MCV 90.8 MCH 30.3 MCHC 33.4 RDW Std Deviation 39.8 RDW Coeff of Issa 12.0 Plt Count 144 L MPV 11.3 Immature Gran % (Auto) 0.400 Neut % (Auto) 56.2 Lymph % (Auto) 28.0 Bee % (Auto) 11.6 H Eos % (Auto) 3.0 Baso % (Auto) 0.8 Absolute Neuts (auto) 2.8 Absolute Lymphs (auto) 1.38 Nucleated RBC % 0 Sodium 137 Potassium 4.4 Chloride 103 Carbon Dioxide 30.0 Anion Gap 4 L BUN 11 Creatinine 1.00 Estim Creat Clear Calc 109.25 Est GFR (MDRD) Af Amer 117 Est GFR (MDRD) Non-Af 96 BUN/Creatinine Ratio 11.0 Glucose 93 Calcium 9.7 Total Bilirubin 0.80 AST 15 ALT 22 Alkaline Phosphatase 59 Total Protein 7.4 Albumin 4.2 Globulin 3.2 Albumin/Globulin Ratio 1.3 Lipase 14 Radiography Diagnostic Testing: Clinical Impression(s) from Imaging Studies Abdomen/Pelvis CT 08/28/23 17:12 IMPRESSION: Findings suspicious for acute nonruptured appendicitis. No focal fluid collection or free air. Mild wall thickening of the terminal ileum with surrounding inflammatory changes could represent terminal ileitis, either primary or secondary related to the adjacent appendicitis. Electronically Signed: Bartolo Kebede MD at 18:30 EST , ADDENDUM: 08/28/23 7617 IMPRESSION: Findings suspicious for acute nonruptured appendicitis. No focal fluid collection or free air. Mild wall thickening of the terminal ileum with surrounding inflammatory changes could represent terminal ileitis, either primary or secondary related to the adjacent appendicitis. N.B. : The above Results were Read Back by Bartolo Kebede MD to Yvon Freeman MD, and understanding confirmed on 08/28/2023 18:36:14 (ET). Electronically Signed: Bartolo Kebede MD at 18:30 EST , Discharge Plan Dx/Rx/DC Orders Clinical Impression: Diarrhea, Appendicitis, Nausea & vomiting Disposition Disposition: Acute Care Hospital [facility]
[2023-08-28] MEDS: Ondansetron 4 MG/2 ML Vial IV ×2 (17:30→23:42)
[2023-08-28] MEDS: 0.9% Normal Saline (1000mL) 1,000 ML 1000 ML IV (17:30)
[2023-08-28 17:44] LABS: Absolute Lymphocyte Count 1.38 X10^3/uL (0.83-4.51); Absolute Neutrophil Count 2.8 X10^3/uL (2.0-7.7); Basophil# 0.04 X10^3/uL; Basophil% 0.8 % (0-1); Eosinophil# 0.15 X10^3/uL; Hematocrit 44.3 % (40-54); Hemoglobin 14.8 g/dL (13.0-16.5); Lymphocyte # 1.38 X10^3/ul (0.83-4.51); Mean Corp Hgb Conc 33.4 g/dL (32-36); Mean Corpuscular Hgb 30.3 pg (27.0-32.0); Mean Corpuscular Volume 90.8 fL (80-94); Mean Platelet Vol. 11.3 fl (6.2-12.0); Monocyte# 0.57 X10^3/uL; Monocyte% 11.6 % (0-10); NRBC Flagged by Analyzer 0 % (0-5); Neutrophil # 2.77 X10^3/uL (2.7-7.7); Neutrophil % 56.2 % (47-70); Platelet Count 144 K/mm3 (150-450); RBC Distribution Width SD 39.8 fl (35.1-43.9); Red Blood Count 4.88 M/mm3 (4.6-6.2); White Blood Count 4.9 K/mm3 (4.4-11.0)
[2023-08-28 18:07] LABS: ALB/GLOB Ratio 1.3 RATIO (0.9-2.4); AST(SGOT) 15 U/L (15-37); Alanine Aminotransfer ALT/SGPT 22 U/L (16-61); Albumin, Serum 4.2 g/dL (3.2-5.0); Alkaline Phosphatase 59 U/L (45-117); Anion Gap 4 (5-15); BUN 11 mg/dL (7-18); Calcium,Total 9.7 mg/dL (8.5-10.1); Chloride 103 mmol/L (98-107); EST Glomerular Filtration Rate 96 mL/min (>60); Est Glom Filt Rate - Afr Amer 117 mL/min (>60); Estimated Creatinine Clearance 109.25 ml/min; Globulin 3.2 g/dL (2.2-4.2); Glucose 93 mg/dL (74-106); Lipase 14 U/L (13-75); Potassium 4.4 mmol/L (3.5-5.1); Protein, Total 7.4 g/dL (6.4-8.2); Sodium Level 137 mmol/L (136-145)
[2023-08-28] MEDS: Morphine 4 MG/ML Syringe IV (19:06)
[2023-08-28] MEDS: Piperacil/Tazobactam 3.375 GM in 0.9% Normal Saline (50mL MB+) 50 ML IV (19:06)
--- NOTE | 2023-08-28 19:19 | HP.PCM.SX_ITS ---
HPI - General General Date of Admission: 08/28/23 HPI Narrative ALLEN HOFFMANN, is a 27 M who presents to the ER due to increasing right lower quadrant pain with his mom. Patient is also had nausea vomiting diarrhea since before . Patient states the right lower quadrant pain has gotten worse today. CT abdomen pelvis called acute appendicitis and questionable inflammation of the terminal ileum which may be secondary to the acute appendicitis. Patient's never had any previous abdominal surgeries. Patient states that he smokes weed due to his anxiety. Otherwise denies tobacco or alcohol. Patient white blood count within normal limits. Patient did get Zosyn IV in the ER for acute appendicitis. [facility] Medical History (Updated 08/28/23 @ 18:54 by Yvon Freeman MD) Bipolar 1 disorder Chlamydia Depression Depression Nausea, vomiting and diarrhea Home Medications NK 08/28/23 [History Last Taken Unknown] Allergy/AdvReac Type Severity Reaction Status Date / Time No Known Allergies Allergy Verified 08/28/23 16:35 Social History Smoking Status: Current every day smoker tobacco type: cigarettes and e- cigarettes Vital Signs Vital Signs Vital Signs: 08/28/23 17:00 08/28/23 17:00 08/28/23 19:16 Temperature 98.4 F Temperature Source Temporal Pulse Rate 66 63 Respiratory Rate 16 14 Respiratory Effort Normal Non-Labored Respiratory Depth Normal Respiratory Pattern Normal Blood Pressure 141/71 H 134/77 H Blood Pressure Mean 94 96 Pulse Ox 98 98 Oxygen Delivery Method Room Air Room Air Weight Weight: 159 lb Body Mass Index (BMI) 24.1 Physical Exam Const alert, oriented x3 and no apparent distress HEENT normocephalic and head/scalp atraumatic Resp normal respiratory effort Cardio regular rate GI soft to palpation; Negative for non-distended Palpation: tender RLQ; Negative for guarding Extremity no clubbing, cyanosis or edema Neuro CN's II-XII intact bilaterally Psych mental status grossly normal Results Lab / Micro Data 08/28/23 17:29 08/28/23 17:29 Labs: Laboratory Results - last 24 hr 08/28/23 17:29: WBC 4.9, RBC 4.88, Hgb 14.8, Hct 44.3, MCV 90.8, MCH 30.3, MCHC 33.4, RDW Std Deviation 39.8, RDW Coeff of Issa 12.0, Plt Count 144 L, MPV 11.3, Immature Gran % (Auto) 0.400, Neut % (Auto) 56.2, Lymph % (Auto) 28.0, Nash % (Auto) 11.6 H, Eos % (Auto) 3.0, Baso % (Auto) 0.8, Absolute Neuts (auto) 2.8, Absolute Lymphs (auto) 1.38, Nucleated RBC % 0, Sodium 137, Potassium 4.4, Chloride 103, Carbon Dioxide 30.0, Anion Gap 4 L, BUN 11, Creatinine 1.00, Estim Creat Clear Calc 109.25, Est GFR (MDRD) Af Amer 117, Est GFR (MDRD) Non-Af 96, BUN/Creatinine Ratio 11.0, Glucose 93, Calcium 9.7, Total Bilirubin 0.80, AST 15, ALT 22, Alkaline Phosphatase 59, Total Protein 7.4, Albumin 4.2, Globulin 3.2, Albumin/Globulin Ratio 1.3, Lipase 14 Imagaing Radiology Impression Abdomen/Pelvis CT 08/28/23 17:12 IMPRESSION: Findings suspicious for acute nonruptured appendicitis. No focal fluid collection or free air. Mild wall thickening of the terminal ileum with surrounding inflammatory changes could represent terminal ileitis, either primary or secondary related to the adjacent appendicitis. Electronically Signed: Bartolo Kebede MD at 18:30 EST , ADDENDUM: 08/28/23 1842 IMPRESSION: Findings suspicious for acute nonruptured appendicitis. No focal fluid collection or free air. Mild wall thickening of the terminal ileum with surrounding inflammatory changes could represent terminal ileitis, either primary or secondary related to the adjacent appendicitis. N.B. : The above Results were Read Back by Bartolo Kebede MD to Yvon Freeman MD, and understanding confirmed on 08/28/2023 18:36:14 (ET). Electronically Signed: Bartolo Kebede MD at 18:30 EST , Assessment & Plan Assessment/Plan (1) Appendicitis: PLAN: Plan 1. Discussed procedure laparoscopic appendectomy, possible open along with the risk but not limited to bleeding, infection/abscess, injury to another organ (s mall bowel, colon, etc.), adhesion, hernia at incision sites, and anesthesia. Discussed with patient and his mom that even if appendix appeared normal would still be taking out the appendix. Discussed that if there was too much inflammation at the terminal ileum and cecum that would prohibit taking out the appendix as the staple line would not heal and this may be likely another process. Patient and his mom had no further questions this time. Elvira Ko M.D. Pager: [phone] [facility] [address] [place] [address], [address] [place] [id number] Office: [phone]
--- NOTE | 2023-08-28 20:05 | APP_PTH ---
PATIENT: ALLEN HOFFMANN LOC: MS3 U#:[id number] AGE/SX: 27/M ROOM: OR318 RE08/28/[address]: Dr. Elvira Ko MD : 1995 BED: 1 DIS: 08/29/2023 SPEC #: [id number] RECD: 08/29/23 08:19 STATUS: ROSITA MARTINEZJose #: [id number] BRIELLE: 08/28/23 20:[address]: Elvira Ko DEPT: SURGICAL PATHOLOGY RECD BY: Abbey España ENTERED: 08/29/23 13:03 SP TYPE: APPENDIX OTHR DR: Dr. Bib Alford MD Tissues: Appendix, NOS Procedures: Surgery Specimen Level III HEADER OPERATION: Laparoscopic appendectomy PRE-OP DIAGNOSIS: Appendicitis TISSUE SUBMITTED: Appendix MICROSCOPIC DIAGNOSIS Appendix, appendectomy: Early acute appendicitis. AM:zina 08/30/2023 MICROSCOPIC DESCRIPTION Slides are reviewed. GROSS DESCRIPTION Received in fixative is one container labeled with the patient's name and designated appendix. The specimen consists of a vermiform appendix measuring 7.0 cm in length and 0.8 cm in average diameter. Serial sections reveal a patent lumen with impacted fecal material. No mass lesion is identified. 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 / AM:zina 08/29/2023 TC:2 CPT: 46372
--- NOTE | 2023-08-28 20:44 | OP.PCM_ITS ---
Report of Operation Date of Procedure: 08/28/23 Pre-Operative Diagnosis: acute appendicitis Post-Operative Diagnosis: Same Surgery/Procedure Performed:: Laparoscopic appendectomy Surgeon: Elvira Ko Type of Anesthesia: General/Supplemental Anesthesiologist: Enzo Craven Special Medications: Zosyn 3.375 g IV x 1 in the ER for acute appendicitis Estimated Blood Loss (mL): 10 cc Description of Procedure: Indications: 27-year-old male presented to the ER with new right lower quadrant pain this morning. On workup he was found to have acute appendicitis on CT and a leukocytosis of within normal limits. Patient was started on antibiotics in the ER for acute appendicitis-Zosyn 3.375 g IV x 1 Description of the procedure: The patient was placed on operating table in supine position. General anesthesia was induced. A timeout was completed verifying correct patient, procedure, position and special equipment prior to beginning procedure. Abdomen was prepped and draped in usual sterile fashion. Incision was made in the natural skin line above the umbilicus with a 15 blade scalpel. The fascia was elevated and incised. Entry into the peritoneum was confirmed visually and no bowel was noted in the vicinity of the incision. The Bah trocar was placed under direct vision. Abdomen insufflated with a pressure of 12-15 mmHg. Patient tolerated insertion well. The scope was inserted and the abdomen inspected. No injuries from initial trocar placement were noted. Minimal amount of fluid was seen in the right lower quadrant. An direct visualization 2 -5 mm trocars were placed one above the symphysis pubis and below the hairline and one in the left lower quadrant lateral to the rectus muscle. Care is taken to avoid injury to the bladder and inferior epigastric vessels. The table was placed in Trendelenburg position with the right side elevated. The appendix was grasped with atraumatic grasper and elevated. It was noted to be mildly inflamed. A window was developed in the mesoappendix at the point between the base of the appendix and the cecum. An endoscopic 45 mm linear cutting stapler blue load was then used to divide and staple the base of the appendix. Enseal was used to divide the mesoappendix The appendix was withdrawn into the Bah trocar after being placed endos copically retrieval bag. Appendix was sent to pathology. The appendiceal stump was then irrigated and hemostasis was assured. Fluid was suctioned no other pathology was identified. Secondary trochars were removed under direct visualization. No bleeding was noted trocar sites. The laparoscope withdrawn and the umbilical trocar removed. The abdomen was allowed to collapse. The umbilical trocar site was closed with the [id number] 0 Vicryl suture. The skin was closed using sutures of 4-0 Monocryl and Steri-Strips. The patient was extubated. The patient tolerated the procedure well and was taken to the postanesthesia care unit in satisfactory condition. Complications none
--- NOTE | 2023-08-28 20:46 | DCINST_ITS ---
Discharge Instructions Diet Discharge Diet: Light diet - advance as tolerated Activity Discharge Activity: May Not Drive (while taking narcotic pain medications.) May shower in (days): 1 Lifting Restrictions: no lifting >20 lbs x 2 wks, no strenuous exercise for 4 wks Dressing / Incision Call your doctor if your incision/area has: Continuous Slow Oozing, Sudden Increased Bleeding, Increased Pain/ Swelling, Increased Redness, Foul Smelling Discharge and Swelling at the incision site Call your doctor if you observe: Fever of 101 or Higher Remove Dressing in: 2 days Cleanse incision/area with: Soap & Water Additional Dressing/Incision Instructions:: Steri-Strips will fall off in 7 to 10 days, if they do not fall off okay to remove after 10 days. Follow Up Care Please Follow Up With: Elvira Ko MD When: Call the office for a follow-up appointment 2 weeks; after 5 PM and on the weekends call [phone] with any concerns. Test Results: Test results from this visit will be discussed in further detail at your follow- up appointment, if applicable. Discharge Plan Admission Attending Provider: Elvira Ko Primary Care Provider: Bib Alford Discharge Orders/Prescriptions Prescriptions: New oxycodone-acetaminophen 5-325 mg tablet 1 - 2 tab PO Q6H PRN (Reason: pain) 3 Days Qty: 14 0RF Referrals / Follow Up: Bib Alford MD [Primary Care Provider] - Disposition Disposition (needs filled in before D/C Order can be placed): Home, Self Care
[2023-08-28] MEDS: Pantoprazole Sodium 40 MG in 0.9% Normal Saline (100mL MB+) 100 ML 330 MG IV (22:51)
[2023-08-28] MEDS: 0.9% Normal Saline (1000mL) 1,000 ML 120 ML IV (22:52)
[2023-08-29 00:53] VITALS: BP 152/94; PULSE 98; RESP 16; TEMP 36.2; O2SAT 98
[2023-08-29 04:00] VITALS: BP 160/90; PULSE 68; RESP 18; TEMP 36.6; O2SAT 99
[2023-08-29] MEDS: oxyCODONE 5 MG Tablet PO (04:23)
[2023-08-29] MEDS: Acetaminophen 325 MG Tablet 650 MG PO (04:24)
[2023-08-29] MEDS: Ondansetron 4 MG/2 ML Vial IV (06:35)
[2023-08-29 07:54] VITALS: BP 149/82; PULSE 61; RESP 18; TEMP 36.5; O2SAT 100
--- NOTE | 2023-08-29 08:09 | PN.SURG_ITS ---
Subjective Subjective Pt in the shower-- asked pt to get out as he just had surgery?patient was cussing about this as he said he just needed to relax. Pt did calm down and apologize and understood the concern for the incisions. Patient is ready to go home. Patient states his previous right-sided abdominal pain has improved. 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 Objective Data Objective Data Vital Signs: Vital Signs Temp Pulse Resp BP Pulse Ox O2 Del Method 97.7 F L 61 18 149/82 H 100 Room Air 08/29/23 07:54 08/29/23 07:54 08/29/23 07:54 08/29/23 07:54 08/29/23 07:54 08/29/23 07:54 Oxygen Delivery Method Room Air Weight: 158 lb 15.958 oz Body Mass Index (BMI) 24.0 Intake & Output: Intake and Output for Last 24 Hours 08/27/23 08/28/23 08/29/23 23:59 23:59 23:59 Intake Total 1155 / 1155 1050 / 1050 Output Total 1200 / 1200 Balance 1155 / 1155 -150 / -150 Lab / Micro Data 08/28/23 17:29 08/28/23 17:29 Labs: Laboratory Results - last 24 hr 08/28/23 17:29: WBC 4.9, RBC 4.88, Hgb 14.8, Hct 44.3, MCV 90.8, MCH 30.3, MCHC 33.4, RDW Std Deviation 39.8, RDW Coeff of Issa 12.0, Plt Count 144 L, MPV 11.3, Immature Gran % (Auto) 0.400, Neut % (Auto) 56.2, Lymph % (Auto) 28.0, Dixie % (Auto) 11.6 H, Eos % (Auto) 3.0, Baso % (Auto) 0.8, Absolute Neuts (auto) 2.8, Absolute Lymphs (auto) 1.38, Nucleated RBC % 0, Sodium 137, Potassium 4.4, Chloride 103, Carbon Dioxide 30.0, Anion Gap 4 L, BUN 11, Creatinine 1.00, Estim Creat Clear Calc 109.25, Est GFR (MDRD) Af Amer 117, Est GFR (MDRD) Non-Af 96, BUN/Creatinine Ratio 11.0, Glucose 93, Calcium 9.7, Total Bilirubin 0.80, AST 15, ALT 22, Alkaline Phosphatase 59, Total Protein 7.4, Albumin 4.2, Globulin 3 .2, Albumin/Globulin Ratio 1.3, Lipase 14 Radiography Diagnostic Testing: Radiology Impression Abdomen/Pelvis CT 08/28/23 17:12 IMPRESSION: Findings suspicious for acute nonruptured appendicitis. No focal fluid collection or free air. Mild wall thickening of the terminal ileum with surrounding inflammatory changes could represent terminal ileitis, either primary or secondary related to the adjacent appendicitis. Electronically Signed: Bartolo Kebede MD at 18:30 EST , ADDENDUM: 08/28/23 1842 IMPRESSION: Findings suspicious for acute nonruptured appendicitis. No focal fluid collection or free air. Mild wall thickening of the terminal ileum with surrounding inflammatory changes could represent terminal ileitis, either primary or secondary related to the adjacent appendicitis. N.B. : The above Results were Read Back by Bartolo Kebede MD to Yvon Freeman MD, and understanding confirmed on 08/28/2023 18:36:14 (ET). Electronically Signed: Bartolo Kebede MD at 18:30 EST , Physical Exam Resp normal respiratory effort Cardio regular rate GI GI Narrative: Abdomen: Soft, nondistended, tender near incision's dressed clean dry and intact, no peritoneal signs Assessment & Plan Assessment/Plan (1) S/P laparoscopic appendectomy: (2) GERD (gastroesophageal reflux disease): PLAN: Plan Discussed with patient the importance of keeping the incisions clean dry and intact for the 24 hours after surgery. Patient states he was just frustrated and needed the shower to relax, but did understand about the incisions. Patient does take a lot of Tums. Will give patient a prescription for Protonix see if that helps as he likely has reflux. Incisions dressed clean dry and intact even after shower. Recommend patient continue to keep the dressing on until his first shower and await 24 hours from surgery before showering again. Patient was agreeable to plan. Okay to DC home. Elvira Ko M.D. Pager: [phone] [facility] [address] [place] [address], [address] [place] [id number] Office: [phone]
--- NOTE | 2023-08-29 08:39 | NURSING ---
PT WAS FOUND EARLIER NAKED AND TRYING TO GET INTO THE SHOWER - PT WAS SWEARING AND STATING THAT HE DIDN'T CARE IF HE WAS ALLOWED TO GET INTO THE SHOWER HE WAS DOING ANY WAYS-PT WAS SWEARING LOUDLY- ABLE TO LOCK OFF IV BEFORE PT GOT IN THE SHOWER- WHILE PT WAS IN THE SHOWER DR CORONEL CAME AND ORDERED PT OUT OF THE SHOWER- PT BEGAN SWEARING AGAIN AND SECURITY WAS CALLED AND PT'S MOTHER ARRIVED AND PT CALMED A LITTLE- FATHER ALSO HERE AND WAS ABLE TO BE D/C LAST NIGHT PER -PT LEFT WITH PARENTS AROUND 0825 AFTER REVIEWED D/C ORDER WITH PT'S MOM-SHE STATED UNDERSTANDING AND IF PT'S NAUSEA CONTINUES TO CALL FOR SCRIPT
== END 2023-08-29 08:35 | disposition home or self-care (01) ==
LOC: ED 18:54 → SDC 19:11 → ACINP 19:12 → MS3 08-29 08:02 → SDC 08-29 10:23
PROVIDERS: Admitting Provider Surgery; Emergency Provider Emergency Medicine; PCP Family Medicine; Visit Provider Surgery
PROC: 0DTJ4ZZ Resection of Appendix, Percutaneous Endoscopic Approach (ICD-10-PCS; CPT 44970; principal; 2023-08-28 19:45)
DX: K35.80 Unspecified acute appendicitis (principal); K21.9 Gastro-esophageal reflux disease without esophagitis; F17.210 Nicotine dependence, cigarettes, uncomplicated; F17.290 Nicotine dependence, other tobacco product, uncomplicated
CPT/HCPCS: 44970; 00840; C1760; 74177; 80048; 80053; 83690; 85025; 88304; 96361; 96365; 96374; 96375; 96376; 99221; 99284; 99285; 99406; J7030; J7120; Q9967; A4216; G0378; J2405

== ENCOUNTER 2023-08-29 14:13 | Emergency (ER) | payer MEDICAID, SELFPAY ==
[2023-08-29 14:14] VITALS: BP 150/94; PULSE 71; RESP 18; TEMP 37.2; O2SAT 99; BMI 24.1
[2023-08-29] MEDS: Ondansetron 4 MG/2 ML Vial IV (14:49)
[2023-08-29] MEDS: 0.9% Normal Saline (1000mL) 1,000 ML 1000 ML IV (14:49)
[2023-08-29 15:18] LABS: Anion Gap 2 (5-15); BUN 7 mg/dL (7-18); BUN/Creat Ratio 6.8 RATIO (10-20); Calcium,Total 9.9 mg/dL (8.5-10.1); Chloride 106 mmol/L (98-107); Creatinine, Serum 1.03 mg/dL (0.70-1.30); EST Glomerular Filtration Rate 93 mL/min (>60); Est Glom Filt Rate - Afr Amer 113 mL/min (>60); Estimated Creatinine Clearance 106.07 ml/min; Glucose 110 mg/dL (74-106); Sodium Level 139 mmol/L (136-145)
[2023-08-29 15:29] VITALS: BP 150/94; PULSE 71; RESP 18; TEMP 37.2; O2SAT 99
--- NOTE | 2023-08-29 16:22 | EDS_ITS ---
HPI History of Present Illness Chief Complaint: Nausea/Vomiting Detail of Chief Complaint: Nausea and vomiting x 7 Informant: patient and parent Onset/Context/Timing Onset: Today Context: Sudden Onset Timing: Intermittent Quality: Nausea and vomiting x 7 since this morning Location: GI Current Severity: Mild Maximum Severity: Moderate Worsened by: Patient is status post appendectomy Relieved by: Nothing and see HPI narrative Associated Symptoms Associated Symptoms: Thirst, dry mouth Narrative Narrative: Today is a 27-year-old male who is status post appendectomy. This was performed by Dr. Ibarra. The surgery went uneventfully. He was discharged to home with Zofran. He was not dispensed ODT Zofran. He presents because of nausea and vo miting x 7 today. He denies black or coffee-ground emesis. He denies blood in his emesis. He states he is belching and fluctuating. He has not had a bowel movement since surgery. He does not feel bloated or distended. He denies fever, chills night sweats. He denies headache, visual, ocular auditory symptoms. He denies cardiac or respiratory symptoms. He does endorse decreased urine output. He denies dysuria, frequency, urgency or hematuria. Prior similar symptoms: No Recent Illness/Hospitalization: Yes PFSH PFSH Medical History Anxiety Bipolar 1 disorder Chlamydia Depression Nausea, vomiting and diarrhea Home Medications oxycodone-acetaminophen 5 mg-325 mg tablet 1 - 2 tab PO Q6H PRN pain 3 days #14 tabs 08/28/23 [Rx Last Taken Unknown] pantoprazole 40 mg tablet,delayed release 40 mg PO DAILY #30 tabs 08/28/23 [Rx Last Taken Unknown] ondansetron 4 mg disintegrating tablet 4 mg PO Q8H PRN PRN Nausea #10 tabs 08/29/23 [Rx Last Taken Unknown] Allergy/AdvReac Type Severity Reaction Status Date / Time No Known Allergies Allergy Verified 08/29/23 14:13 Surgical History S/P laparoscopic appendectomy Social History (Updated 08/29/23 @ 16:[address] David Houston MD) household members: family Smoking Status: Current every day smoker tobacco type: cigarettes and e- cigarettes ROS ROS ED Constitutional Constitutional ED: Denies chills, fever(s), subjective, sweats or weight loss Eyes Eyes: Denies blurry vision, change in vision or diplopia ENT ENT ED: Denies rhinorrhea or sore throat Cardiovascular Cardiovascular: Denies chest pain or palpitations Respiratory/Chest Respiratory/Chest: Denies cough or dyspnea Gastrointestinal Gastrointestinal: Reports nausea and vomiting; Denies abdominal pain, constipation, diarrhea or melena Genitourinary Genitourinary ED: Denies dysuria, hematuria or urinary frequency Musculoskeletal Musculoskeletal: Denies arthralgias, back pain, myalgias or neck pain Integumentary Denies abscess or Abrasions Neurologic Neurologic: Denies headache(s) or paresthesias Psychiatric Psychiatric: Denies anxiety, depression or suicidal ideation Hematologic/Lymphatic Hematologic/Lymphatic: Reports systems reviewed and no addt'l complaints, except as documented EXAM Physical Exam Const Vital Signs: 08/29/23 14:14 08/29/23 15:29 Temperature 99 F 99 F Temperature Source Temporal Temporal Pulse Rate 71 71 Respiratory Rate 18 18 Blood Pressure 150/94 H 150/94 H Blood Pressure Mean 112 112 Pulse Ox 99 99 Oxygen Delivery Method Room Air Room Air Positive well nourished and well developed General Appearance ED: well developed, NAD and pallor; Negative for cyanotic or diaphoretic HEENT Reports dry mucous membranes HEENT Narrative: Head is atraumatic and normocephalic. Ears are normal. Nares are patent. Posterior pharynx is normal. Mouth ED: Yes dry mucous membranes Mouth: dry mucous membranes Eyes PERRL and EOMs intact bilaterally General Eye ED: Negative for pale conjunctiva or scleral icterus Neck no lymphadenopathy, supple and no JVD Chest Wall inspection of chest normal and palpation of chest normal Resp normal respiratory effort and clear to auscultation bilaterally Cardio regular rate, regular rhythm, S1 normal heart sound, S2 normal heart sound and no murmurs GI normal to inspection, nondistended, normoactive bowel sounds, non-tender, non- distended and no masses; Negative for hepatosplenomegaly GI Narrative: Has appropriate tenderness near port sites. Palpation: soft Back/Spine no CVA tenderness Thoracic Spine / Upper Back: Negative for thoracic spinal tenderness Lumbar Spine / Lower Back: Negative for lumbar spinal tenderness Extremity normal to inspection General Extremety ED: Negative for edema or tenderness General Extremity: Negative for edema Neuro oriented x3, CN's II-XII intact bilaterally and no sensory deficits noted Sensorium / Orientation: alert Psych Mood & Affect: anxious Skin no rashes or lesions noted and no wounds General Skin Exam: elasticity normal and pallor; Negative for jaundice MDM MDM MDM Narrative Medical decision making narrative: Differential diagnosis would be ileus, postoperative nausea and vomiting. Since patient was treated with Zofran tablets and not Zofran and ODT he would vomit every time he took a pill. Clinically he does not have findings ordered symptoms concerning for obstruction. Clinically patient is dry. BMP was obtained to assess electrolytes and BUN and creatinine. Patient did urinate after fluid bolus. Patient's nausea and vomiting resolved after IV Zofran. Plan is to discharge with prescription for Zofran ODT. History & Record Review Additional record(s) reviewed:: Prior inpatient record (Of note and ER note from yesterday was read.) Lab Data Attestation: I reviewed the patient's lab results. Lab results narrative: Sick metabolic panel is unremarkable. Glucose is slightly elevated 110 with a normal serum 90 Labs: Laboratory Results - last 24 hr 08/29/23 14:45 Sodium 139 Potassium 4.0 Chloride 106 Carbon Dioxide 31.0 Anion Gap 2 L BUN 7 Creatinine 1.03 Estim Creat Clear Calc 106.07 Est GFR (MDRD) Af Amer 113 Est GFR (MDRD) Non-Af 93 BUN/Creatinine Ratio 6.8 L Glucose 110 H Calcium 9.9 Treatment and Re-Evaluation :: Was reassessed and passed p.o. challenge. He was informed of the results. Discharge Plan Triage Chief Complaint: Nausea/Vomiting ED Provider: David Houston Dx/Rx/DC Orders Clinical Impression: Nausea & vomiting, S/P laparoscopic appendectomy, Acute dehydration Instructions: ED Vomiting and Diarrhea ... Prescriptions: New ondansetron [ondansetron] 4 mg tablet,disintegrating 4 mg PO Q8H PRN PRN (Reason: Nausea) Qty: 10 0RF No Action oxycodone-acetaminophen 5-325 mg tablet 1 - 2 tab PO Q6H PRN (Reason: pain) 3 Days Qty: 14 0RF pantoprazole 40 mg tablet,delayed release (DR/EC) 40 mg PO DAILY Qty: 30 0RF Primary Care Provider: Bib Alford Referrals: Bib Alford MD [Primary Care Provider] - Elvira Ko MD [Med Staff - Active Staff] - 1-2 Days if not improving Disposition Disposition: Home, Self Care
[2023-08-29 16:43] VITALS: BP 140/79; PULSE 75; RESP 16; O2SAT 98
== END 2023-08-29 16:44 | disposition home or self-care (01) ==
PROVIDERS: Emergency Provider Emergency Medicine; PCP Family Medicine; Visit Provider Emergency Medicine
DX: R11.2 Nausea with vomiting, unspecified (principal); E86.0 Dehydration; F17.210 Nicotine dependence, cigarettes, uncomplicated; Z90.89 Acquired absence of other organs; F17.290 Nicotine dependence, other tobacco product, uncomplicated
CPT/HCPCS: 80048; J2405; J7030

== ENCOUNTER 2024-03-23 16:51 | Emergency (ER) | payer MEDICAID, SELFPAY ==
[2024-03-23 16:51] VITALS: BP 148/97; PULSE 99; RESP 16; TEMP 36.1; O2SAT 98
[2024-03-23 16:54] VITALS: BMI 23.8
--- NOTE | 2024-03-23 18:18 | EDS_ITS ---
HPI History of Present Illness Chief Complaint: Other, Pain/Inj Detail of Chief Complaint: Not feeling well Informant: patient Narrative Narrative: Patient presents to the emergency department with complaint of not feeling well. Patient has multiple complaints and states that he has had some health issues for months. He describes fatigue. He describes diarrhea for 3 months. He states he had his appendix removed in August 2023. He complains of a cough. Complains of an occasional pain in his right chest. He was seen by nurse practitioner in his PCP office today and they really did not do much for him so he comes here for evaluation. He also describes some sort of a pill or cyst on his scalp and he is not sure if that is the etiology of his symptoms. [facility] Medical History Anxiety Bipolar 1 disorder Chlamydia Depression Nausea, vomiting and diarrhea Home Medications ?Medication ?Instructions ?Recorded ?Last Taken ?Type oxycodone-acetaminophen 5 mg-325 1 - 2 tab PO Q6H PRN pain 3 days 08/28/23 Unknown Rx mg tablet #14 tabs pantoprazole 40 mg tablet,delayed 40 mg PO DAILY #30 tabs 08/28/23 Unknown Rx release Allergy/AdvReac Type Severity Reaction Status Date / Time No Known Allergies Allergy Verified 03/23/24 16:51 Surgical History S/P laparoscopic appendectomy Social History (Updated 08/29/23 @ 16:[address] David Houston MD) household members: family Smoking Status: Current every day smoker tobacco type: cigarettes and e- cigarettes ROS ROS ED Review of Systems ROS Unobtainable: other Constitutional Constitutional ED: Reports lethargy; Denies chills, fever(s), sweats or weight loss Eyes Eyes: Denies blurry vision, change in vision or diplopia ENT ENT ED: Denies rhinorrhea or sore throat Cardiovascular Cardiovascular: Reports chest pain; Denies orthopnea or racing heartbeat Respiratory/Chest Respiratory/Chest: Reports cough; Denies dyspnea, dyspnea on exertion, orthopnea or sputum Gastrointestinal Gastrointestinal: Reports diarrhea; Denies abdominal pain, nausea or vomiting Genitourinary Genitourinary ED: Denies dysuria, hematuria or urinary frequency Musculoskeletal Musculoskeletal: Denies arthralgias, back pain, myalgias or neck pain Integumentary Denies abscess, Abrasions or rash Neurologic Neurologic: Denies headache(s) or weakness Psychiatric Psychiatric: Denies anxiety, depression or suicidal thoughts Endocrine Endocrinology: Denies polydipsia, polyphagia or polyuria Hematologic/Lymphatic Hematologic/Lymphatic: Denies easy bleeding, easy bruising or lymphadenopathy Allergic/Immunologic Allergic/Immunologic ED: Denies mouth swelling, tongue swelling or urticaria EXAM Physical Exam Const Vital Signs: 03/23/24 16:51 03/23/24 18:33 Temperature 97 F L Temperature Source Temporal Pulse Rate 99 74 Respiratory Rate 16 16 Blood Pressure 148/97 H 147/88 H Blood Pressure Mean 114 107 Pulse Ox 98 98 Oxygen Delivery Method Room Air Room Air Positive well nourished and well developed General Appearance ED: well developed and NAD HEENT Reports TM's clear and moist mucous membranes HEENT Narrative: Small scalp cyst underneath the skin and left parietal with no fluctuance and RN no erythema no evidence for infection. normocephalic and atraumatic; Negative for trauma or tenderness Tympanic Membrane ED: Yes TM's clear Eyes PERRL and EOMs intact bilaterally General Eye ED: Negative for pale conjunctiva or scleral icterus Neck no lymphadenopathy, supple and no JVD General: Negative for tenderness Chest Wall inspection of chest normal and palpation of chest normal Chest: Negative for tenderness Resp normal respiratory effort and clear to auscultation bilaterally Effort and Inspection: Negative for respiratory distress or pain with movement Auscultation: Negative for rhonchi, wheezes or diminished lung sounds Cardio regular rate, regular rhythm, S1 normal heart sound, S2 normal heart sound and no murmurs Peripheral Pulses: pulses 2+ throughout GI normal to inspection, nondistended, normoactive bowel sounds, soft to palpation, non-tender, non-distended and no masses Back/Spine no CVA tenderness and no thoracic nor lumbar tenderness Extremity normal to inspection General Extremety ED: Negative for edema General Extremity: Negative for edema Neuro oriented x3, CN's II-XII intact bilaterally, no sensory deficits noted and gait normal Sensorium / Orientation: awake, alert, oriented to person, oriented to place and oriented to time Motor Exam: strength 5/5 throughout and strength abnormal Psych mental status grossly normal Skin no rashes or lesions noted and no wounds MDM MDM MDM Narrative Medical decision making narrative: Patient presents to the emergency department with multiple complaints. He just wants to make sure that he is okay. He saw his PCP today but they did not do any blood work and so he comes in for evaluation. Patient has CBC with differential obtained that showed a white count of 9.6 with hemoglobin 13.7 platelet count of 162. Chemistries unremarkable. LFTs were normal. BUN 11 and creatinine 1.06. LFTs were normal. I did obtain a chest x-ray which was normal. I ordered stool for enteric pathogens but he was not able to produce sample. At this point discussed results with patient he is feeling comfortable with the workup and he is thankful that we at least investigated. He does have history of anxiety and he thinks this could be a big part of his issue. He is trying to discontinue smoking marijuana and he recently quit alcohol. Patient advised to follow-up with his primary care physician within next 3 to 5 days. Lab Data Attestation: I reviewed the patient's lab results. Labs: Laboratory Results - last 24 hr 03/23/24 18:27 WBC 9.6 RBC 4.45 L Hgb 13.7 Hct 40.6 MCV 91.2 MCH 30.8 MCHC 33.7 RDW Std Deviation 39.7 RDW Coeff of Issa 11.9 Plt Count 162 MPV 10.9 Immature Gran % (Auto) 0.200 Neut % (Auto) 71.0 H Lymph % (Auto) 20.8 [place] % (Auto) 6.2 Eos % (Auto) 1.0 Baso % (Auto) 0.8 Absolute Neuts (auto) 6.8 Absolute Lymphs (auto) 2.00 Nucleated RBC % 0 Sodium 140 Potassium 4.2 Chloride 108 H Carbon Dioxide 29.0 Anion Gap 3 L BUN 11 Creatinine 1.06 Estim Creat Clear Calc 102.17 Est GFR (MDRD) Af Amer 108 Est GFR (MDRD) Non-Af 90 BUN/Creatinine Ratio 10.4 Glucose 83 Calcium 9.4 Total Bilirubin 0.80 AST 10 L ALT 18 Alkaline Phosphatase 55 Total Protein 6.9 Albumin 4.1 Globulin 2.8 Albumin/Globulin Ratio 1.5 Radiography Diagnostic Testing: Clinical Impression(s) from Imaging Studies Chest X-Ray 03/23/24 18:40 IMPRESSION: Normal x-ray examination of the chest. Electronically Signed: Jay Jay Mari MD at 19:28 EDT , 1 view chest x-ray obtained interpreted by myself no evidence of infiltrate or pneumothorax or acute disease process. Radiology in agreement. Discharge Plan Triage Chief Complaint: Other, Pain/Inj ED Provider: James Ortiz Dx/Rx/DC Orders Clinical Impression: Weakness, Diarrhea, Anxiety Instructions: ED Anxiety Reaction, ED Diarrhea, Unknown Cause, ED Weakness (Uncertain Cause) Prescriptions: No Action oxycodone-acetaminophen 5-325 mg tablet 1 - 2 tab PO Q6H PRN (Reason: pain) 3 Days Qty: 14 0RF pantoprazole 40 mg tablet,delayed release (DR/EC) 40 mg PO DAILY Qty: 30 0RF Primary Care Provider: Bib Alford Referrals: Bib Alford MD [Primary Care Provider] - 3-5 Days Print Language: Arabic Disposition Disposition: Home, Self Care
[2024-03-23 18:33] VITALS: BP 147/88; PULSE 74; RESP 16; O2SAT 98
[2024-03-23] MEDS: 0.9% Normal Saline (1000mL) 1,000 ML 150 ML IV (18:35)
[2024-03-23 18:39] LABS: Absolute Neutrophil Count 6.8 X10^3/uL (2.0-7.7); Basophil# 0.08 X10^3/uL; Basophil% 0.8 % (0-1); Hematocrit 40.6 % (40-54); Hemoglobin 13.7 g/dL (13.0-16.5); Lymphocyte % 20.8 % (19-41); Mean Corp Hgb Conc 33.7 g/dL (32-36); Mean Corpuscular Hgb 30.8 pg (27.0-32.0); Mean Corpuscular Volume 91.2 fL (80-94); Mean Platelet Vol. 10.9 fl (6.2-12.0); Monocyte% 6.2 % (0-10); NRBC Flagged by Analyzer 0 % (0-5); Neutrophil # 6.82 X10^3/uL (2.7-7.7); Platelet Count 162 K/mm3 (150-450); RBC Distribution Width CV 11.9 % (11.6-14.6); RBC Distribution Width SD 39.7 fl (35.1-43.9); Red Blood Count 4.45 M/mm3 (4.6-6.2); White Blood Count 9.6 K/mm3 (4.4-11.0)
--- NOTE | 2024-03-23 18:40 | RAD_ITS ---
STUDY: X-RAY CHEST REASON FOR EXAM: Male, 28 years old. Cough TECHNIQUE: Single AP portable view of the chest. COMPARISON: None. FINDINGS: The lungs are clear and expanded. There is no demonstrated pleural abnormality. Normal size heart. Normal mediastinum and linh. Normal visualized pulmonary arteries. Normal visualized aortic arch and descending thoracic aorta. Normal visualized thoracic spine. Normal visualized ribs, clavicles, and shoulders. There is no demonstrated abnormality of the visualized soft tissue structures of the upper abdomen. RAD/Chest 1 View (Portable) IMPRESSION: Normal x-ray examination of the chest. Electronically Signed: Jay Jay Mari MD at 19:28 EDT ,
[2024-03-23 18:56] LABS: ALB/GLOB Ratio 1.5 RATIO (0.9-2.4); AST(SGOT) 10 U/L (15-37); Alanine Aminotransfer ALT/SGPT 18 U/L (16-61); Albumin, Serum 4.1 g/dL (3.2-5.0); Alkaline Phosphatase 55 U/L (45-117); Anion Gap 3 (5-15); BUN 11 mg/dL (7-18); BUN/Creat Ratio 10.4 RATIO (10-20); Calcium,Total 9.4 mg/dL (8.5-10.1); Chloride 108 mmol/L (98-107); Creatinine, Serum 1.06 mg/dL (0.70-1.30); EST Glomerular Filtration Rate 90 mL/min (>60); Est Glom Filt Rate - Afr Amer 108 mL/min (>60); Estimated Creatinine Clearance 102.17 ml/min; Globulin 2.8 g/dL (2.2-4.2); Glucose 83 mg/dL (74-106); Potassium 4.2 mmol/L (3.5-5.1); Protein, Total 6.9 g/dL (6.4-8.2); Sodium Level 140 mmol/L (136-145)
[2024-03-23 20:43] VITALS: BP 135/77; BP 147/88; PULSE 66; PULSE 74; RESP 16; RESP 17; TEMP 36.1; O2SAT 97; O2SAT 98
== END 2024-03-23 20:44 | disposition home or self-care (01) ==
PROVIDERS: Emergency Provider Emergency Medicine; PCP Family Medicine; Visit Provider Emergency Medicine
DX: R53.1 Weakness (principal); R19.7 Diarrhea, unspecified; F41.9 Anxiety disorder, unspecified; F17.210 Nicotine dependence, cigarettes, uncomplicated
CPT/HCPCS: 71045; 80053; 85025; 96360; 96361; 99284; J7030; A4216

== ENCOUNTER 2024-12-03 06:13 | Emergency (ER) | payer MEDICAID, SELFPAY ==
[2024-12-03 06:13] VITALS: BP 156/89; PULSE 78; RESP 16; TEMP 36; O2SAT 99; BMI 23.3
--- NOTE | 2024-12-03 06:29 | EX.ED.DYSGE1 ---
HPI History of Present Illness Chief Complaint: Nausea/Vomiting/Diarrhea Informant: patient Narrative Narrative: Patient is a 29-year-old male with history of anxiety and reported gluten allergy. He also has a past medical history of acute appendicitis requiring laparoscopic removal in 2022. He states last night he ate an entire medium pizza as well as a carton of bread sticks and then awoke this morning with bouts of nausea and vomiting. He states his girlfriend and their child were recently sick with nausea and vomiting as well but he does not feel that this is infectious in nature and feels it is related to his gluten sensitivity. He states that he has not been able to hold down food or fluid throughout the night and secondary to this presents for evaluation [facility] Medical History Bipolar 1 disorder Anxiety Nausea, vomiting and diarrhea Chlamydia Depression Home Medications ?Medication ?Instructions ?Recorded ?Last Taken ?Type prochlorperazine maleate 10 mg 10 mg PO TID PRN nausea and 12/03/24 Unknown Rx tablet (Compazine) vomiting #21 tabs quetiapine 50 mg tablet (Seroquel) 50 mg PO QHS 12/03/24 Unknown History Allergy/AdvReac Type Severity Reaction Status Date / Time gluten Allergy Intermediate Abd Verified 12/03/24 06:17 cramps/diarrhea Surgical History S/P laparoscopic appendectomy Social History (Updated 08/29/23 @ 16:[address] David Houston MD) household members: family Smoking Status: Current every day smoker tobacco type: cigarettes and e-cigarettes ROS ROS ED Constitutional Constitutional ED: Denies chills or fever(s) Eyes Eyes: Denies blurry vision or change in vision ENT ENT ED: Denies sore throat Cardiovascular Cardiovascular: Denies chest pain Respiratory/Chest Respiratory/Chest: Denies cough or dyspnea Gastrointestinal Gastrointestinal: Reports nausea and vomiting; Denies abdominal pain or diarrhea Genitourinary Genitourinary ED: Denies dysuria Musculoskeletal Musculoskeletal: Denies myalgias Integumentary Denies rash Neurologic Neurologic: Denies headache(s) Psychiatric Psychiatric: Reports anxiety; Denies suicidal ideation or suicidal thoughts Hematologic/Lymphatic Hematologic/Lymphatic: Denies easy bleeding or easy bruising EXAM Physical Exam Const Vital Signs: 12/03/24 06:13 Temperature 96.8 F L Temperature Source Axillary Pulse Rate 78 Respiratory Rate 16 Blood Pressure 156/89 H Blood Pressure Mean 111 Pulse Ox 99 Oxygen Delivery Method Room Air Positive well nourished and well developed General Appearance ED: well developed; Negative for pallor HEENT Reports dry mucous membranes HEENT Narrative: No tongue or lip swelling no oral lesions no airway edema or compromise There is cobblestoning noted in the posterior pharynx consistent with sinus drainage; no secondary findings to suggest infection Mucous membranes are dry and tacky Mouth ED: Yes dry mucous membranes Mouth: dry mucous membranes Eyes PERRL and EOMs intact bilaterally General Eye ED: Negative for scleral icterus Neck supple Neck Narrative: No nuchal rigidity or meningeal signs noted Resp normal respiratory effort and clear to auscultation bilaterally Cardio regular rate and regular rhythm Rate: other Other Details: Heart is regular rate and rhythm without murmurs rubs or gallops Radial and carotid pulses are equal and symmetric GI non-tender, non-distended and no masses GI Narrative: Abdomen is soft nontender and nondistended with hyperactive bowel sounds No voluntary guarding no rigidity or pulsatile mass Auscultation: hyperactive bowel sounds Palpation: soft Extremity normal to inspection Neuro oriented x3, CN's II-XII intact bilaterally and no sensory deficits noted Sensorium / Orientation: alert Motor Exam: strength 5/5 throughout Psych Psych Narrative: Patient has a nervous/anxious affect Mood & Affect: anxious Skin no rashes or lesions noted General Skin Exam: Negative for jaundice or pallor MDM MDM MDM Narrative Medical decision making narrative: Patient arrived to the ER mildly hypertensive but is also reportedly and visibly anxious. His history and exam is concerning for food allergy/sensitivity versus viral infection such as norovirus or rotavirus. His appendix was removed in 2022 and therefore there is low concern for this and he is not distended or tender and I have low concern for small bowel obstruction or ileus. Therefore this time I feel no need for acute imaging will obtain basic laboratory studies in order to ensure he does not have acute kidney injury or severe electro abnormality or atypical presentation for acute pancreatitis or biliary colic. The patient's white blood cell count is elevated at 15.7 but this is most likely stress response and as he is afebrile with no abdominal pain on exam I do not feel there is need for emergent imaging. The remainder the labs revealed no clinically significant findings such as acute electrolyte abnormality or acute kidney injury. Lipase is normal going against pancreatitis and liver enzymes are normal going against biliary colic or acute cholecystitis. After IV hydration as well as treatment with Benadryl and Compazine the patient had no further bouts of vomiting and had resolution of his anxiety as well. Therefore at this time as patient's had resolution of symptoms and overall workup is negative there is no need for further evaluation and is otherwise safe for discharge History & Record Review Discussion w/independent historian: Patient Lab Data Attestation: I reviewed the patient's lab results. Labs: Laboratory Results - last 24 hr 12/03/24 06:22 WBC 15.7 H RBC 4.81 Hgb 15.0 Hct 44.1 MCV 91.7 MCH 31.2 MCHC 34.0 RDW Std Deviation 41.4 RDW Coeff of Issa 12.4 Plt Count 203 MPV 11.4 Immature Gran % (Auto) 0.500 Neut % (Auto) 71.2 H Lymph % (Auto) 19.2 [place] % (Auto) 7.1 Eos % (Auto) 1.1 Baso % (Auto) 0.9 Absolute Neuts (auto) 11.2 H Absolute Lymphs (auto) 3.02 Nucleated RBC % 0 Sodium 141 Potassium 4.0 Chloride 100 Carbon Dioxide 24.5 Anion Gap 16 H BUN 17 Creatinine 1.02 Estim Creat Clear Calc 105.25 Est GFR (MDRD) Non-Af 103 BUN/Creatinine Ratio 16.3 Glucose 105 H Calcium 10.0 Total Bilirubin 0.43 Direct Bilirubin 0.23 AST 24 ALT 15 Alkaline Phosphatase 61 Total Protein 7.6 Albumin 5.0 Globulin 2.7 Lipase 20 Discharge Plan Triage Chief Complaint: Nausea/Vomiting/Diarrhea ED Provider: Jimenez Hoffman Dx/Rx/DC Orders Clinical Impression: Nausea & vomiting, Dehydration, Allergy to gluten, Anxiety Instructions: ED Dehydration (Adult), ED Food Allergy Prescriptions: New prochlorperazine maleate [Compazine] 10 mg tablet 10 mg PO TID PRN (Reason: nausea and vomiting) Qty: 21 0RF No Action quetiapine [Seroquel] 50 mg tablet 50 mg PO QHS Primary Care Provider: Bib Alford Referrals: Bib Alford MD [Primary Care Provider] - Activity Restrictions/Additional Instructions: Please keep yourself well-hydrated and try to avoid gluten based on your food allergy/sensitivity. Use the Compazine as directed to help control any further bouts of nausea and vomiting and return to the ER should you have any further concerns Print Language: Kosovan Disposition Disposition: Home, Self Care
[2024-12-03] MEDS: 0.9% Normal Saline (1000mL) 1,000 ML 999 ML IV (06:33)
[2024-12-03] MEDS: proCHLORPERazine 10 MG/2 ML Vial IV (06:34)
[2024-12-03] MEDS: DiphenhydrAMINE 50 MG/ML Syringe 25 MG IV (06:34)
--- NOTE | 2024-12-03 06:39 | ED.RN ---
This nurse walked into the room and pt had 2 fingers down his throat to throw up. Pt kept sayingI just need to get it out
[2024-12-03 06:41] LABS: Absolute Lymphocyte Count 3.02 X10^3/uL (0.83-4.51); Absolute Neutrophil Count 11.2 X10^3/uL (2.0-7.7); Basophil# 0.14 X10^3/uL; Basophil% 0.9 % (0-1); Eosinophil# 0.18 X10^3/uL; Eosinophils% 1.1 % (0-5); Hematocrit 44.1 % (40-54); Lymphocyte # 3.02 X10^3/ul (0.83-4.51); Lymphocyte % 19.2 % (19-41); Mean Corpuscular Hgb 31.2 pg (27.0-32.0); Mean Corpuscular Volume 91.7 fL (80-94); Mean Platelet Vol. 11.4 fl (6.2-12.0); Monocyte# 1.11 X10^3/uL; Monocyte% 7.1 % (0-10); NRBC Flagged by Analyzer 0 % (0-5); Neutrophil # 11.18 X10^3/uL (2.7-7.7); Neutrophil % 71.2 % (47-70); Platelet Count 203 K/mm3 (150-450); RBC Distribution Width CV 12.4 % (11.6-14.6); RBC Distribution Width SD 41.4 fl (35.1-43.9); Red Blood Count 4.81 M/mm3 (4.6-6.2); White Blood Count 15.7 K/mm3 (4.4-11.0)
[2024-12-03] MEDS: Lidocaine 2% Viscous15 ML UDC 15 ML PO (06:49)
[2024-12-03] MEDS: Mag Hydrox/Al Hydrox/Simeth 30 ML UDC PO (06:49)
[2024-12-03 07:19] LABS: AST(SGOT) 24 U/L (<=37); Alanine Aminotransfer ALT/SGPT 15 U/L (<=46); Alkaline Phosphatase 61 U/L (40-129); Anion Gap 16 (5-15); BUN 17 mg/dL (4-19); BUN/Creat Ratio 16.3 RATIO (10-20); Bilirubin, Direct 0.23 mg/dL (0.00-0.30); Carbon Dioxide 24.5 mmol/L (21.0-32.0); Chloride 100 mmol/L (98-108); Creatinine, Serum 1.02 mg/dL (0.70-1.20); EST Glomerular Filtration Rate 103 (>60); Estimated Creatinine Clearance 105.25 ml/min (50-250); Globulin 2.7 g/dL (2.2-4.2); Glucose 105 mg/dL (70-99); Lipase 20 U/L (13-75); Protein, Total 7.6 g/dL (5.9-8.4); Sodium Level 141 mmol/L (133-145); Total Bilirubin 0.43 mg/dL (0.00-1.30)
[2024-12-03 07:33] VITALS: BP 132/86; PULSE 71; RESP 16; TEMP 36.8; O2SAT 99
== END 2024-12-03 07:34 | disposition home or self-care (01) ==
PROVIDERS: Emergency Provider Emergency Medicine; PCP Family Medicine; Visit Provider Emergency Medicine
DX: R11.2 Nausea with vomiting, unspecified (principal); F17.210 Nicotine dependence, cigarettes, uncomplicated; F41.9 Anxiety disorder, unspecified; R19.7 Diarrhea, unspecified; E86.0 Dehydration; K90.41 Non-celiac gluten sensitivity
CPT/HCPCS: 80048; 80076; 83690; 85025; 96374; 96375; 99282; A4216

== ENCOUNTER 2025-07-03 01:03 | Emergency (ER) | payer MEDICAID, SELFPAY ==
[2025-07-03 01:04] VITALS: BP 137/90; PULSE 67; RESP 16; TEMP 36.4; O2SAT 99; BMI 23.3
--- OUTSIDE RECORDS SUMMARY | 2025-07-03 01:24 | XMS RPT_ITS | CCD ---
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 Exam# [id number] Ordering Dr: James Ortiz DO [id number] STUDY: X-RAY CHEST REASON FOR EXAM: Male, 28 years old. Cough TECHNIQUE: Single AP portable view of the chest. COMPARISON: None. FINDINGS: The lungs are clear and expanded. There is no demonstrated pleural abnormality. Normal size heart. Normal mediastinum and linh. Normal visualized pulmonary arteries. Normal visualized aortic arch and descending thoracic aorta. Normal visualized thoracic spine. Normal visualized ribs, clavicles, and shoulders. There is no demonstrated abnormality of the visualized soft tissue structures of the upper abdomen. RAD/Chest 1 View (Portable) IMPRESSION: Normal x-ray examination of the chest. Electronically Signed: Jay Jay Mari MD at 19:28 EDT , CC: Dr. Bib Alford MD; Dr. James Ortiz DO Belt Weaver: Signed Normal [facility] Comprehensive Metabolic Prof moon 03-23-2024 Albumin [Mass/Vol] 4.1 g/dL Normal 3.2-5.0 [facility] Comment on above: Performed By: #### L 500.4050, L100.0100 #### [facility] [address] [place], [address] Albumin/Globulin [Mass ratio] 1.5 {ratio} Normal 0.9-2.4 [facility] Comment on above: Performed By: #### L 500.4050, L100.0100 #### [facility] [address] [place], [address] ALK P 55 U/L Normal 45-117 [facility] Comment on above: Performed By: #### L 500.4050, L100.0100 #### [facility] [address] [place], [address] ALT [Catalytic activity/Vol] 18 U/L Normal 16-61 [facility] Comment on above: Performed By: #### L 500.4050, L100.0100 #### [facility] [address] [place], [address] AST [Catalytic activity/Vol] 10 U/L Low 15-37 [facility] Comment on above: Performed By: #### L 500.4050, L100.0100 #### [facility] [address] [place], [address] Bilirubin [Mass/Vol] 0.80 mg/dL Normal 0.20-1.00 [facility] Comment on above: Result Comment: For patients on eltrombopag therapy, use of Dimension [place] TBIL is not recommended. Performed By: #### L 500.4050, L100.0100 #### [facility] [address] [place], [address] BUN/CRE 10.4 RATIO Normal 10-20 [facility] Comment on above: Performed By: #### L 500.4050, L100.0100 #### [facility] [address] [place], [address] CA,Total 9.4 mg/dL Normal 8.5-10.1 [facility] Comment on above: Performed By: #### L 500.4050, L100.0100 #### [facility] [address] [place], [address] Chloride [Moles/Vol] 108 mmol/L High 98-107 [facility] Comment on above: Performed By: #### L 500.4050, L100.0100 #### [facility] [address] [place], [address] CO2 [Moles/Vol] 29.0 mmol/L Normal 21.0-32.0 [facility] Comment on above: Performed By: #### L 500.4050, L100.0100 #### [facility] [address] [place], [address] Creatinine [Mass/Vol] 1.06 mg/dL Normal 0.70-1.30 [facility] Comment on above: Result Comment: The validity of the calculated GFR GFRAA in patients over 70 years has not been determined. Clinical correlation is essential. Performed By: #### L 500.4050, L100.0100 #### [facility] [address] [place], [address] ECRCL 102.17 ml/min Normal [facility] Comment on above: Performed By: #### L 500.4050, L100.0100 #### [facility] [address] [place], [address] EST GFR - AA 108 mL/min Normal >60 [facility] Comment on above: Result Comment: Afri can [place] GFR Calc Performed By: #### L 500.4050, L100.0100 #### [facility] [address] [place], [address] GAP 3 Low 5-15 [facility] Comment on above: Performed By: #### L 500.4050, L100.0100 #### [facility] [address] [place], [address] GFR/1.73 sq M.predicted among non-blacks MDRD (S/P/Bld) [Vol rate/Area] 90 mL/min/{1.73_m2} Normal >60 [facility] Comment on above: Result Comment: Non- GFR Calc Performed By: #### L 500.4050, L100.0100 #### [facility] [address] [place], [address] Globulin (S) [Mass/Vol] 2.8 g/dL Normal 2.2-4.2 [facility] Comment on above: Performed By: #### L 500.4050, L100.0100 #### [facility] [address] [place], [address] Glucose [Mass/Vol] 83 mg/dL Normal 74-106 [facility] Comment on above: Performed By: #### L 500.4050, L100.0100 #### [facility] [address] [place], [address] Potassium [Moles/Vol] 4.2 mmol/L Normal 3.5-5.1 [facility] Comment on above: Performed By: #### L 500.4050, L100.0100 #### [facility] [address] [place], [address] Sodium [Moles/Vol] 140 mmol/L Normal 136-145 [facility] Comment on above: Performed By: #### L 500.4050, L100.0100 #### [facility] [address] [place], [address] T PROT 6.9 g/dL Normal 6.4-8.2 [facility] Comment on above: Performed By: #### L 500.4050, L100.0100 #### [facility] [address] [place], [address] Urea nitrogen [Mass/Vol] 11 mg/dL Normal 7-18 [facility] Comment on above: Performed By: #### L 500.4050, L100.0100 #### [facility] [address] [place], [address] Emergency Department Summary on 03-23-2024 Emergency Department Summary [facility] Medical Records Department [address] [place] [address] Emergency Department Summary 03/23/24 MR#: [id number] Acct: [id number] Name: ALLEN HOFFMANN Rep #: [id number] : 1995 28 From: James Ortiz DO PCP: Dr. Bib Alford MD Status:DEP ER Location: ED HPI History of Present Illness Chief Complaint: Other, Pain/Inj Detail of Chief Complaint: Not feeling well Informant: patient Narrative Narrative: Patient presents to the emergency department with complaint of not feeling well. Patient has multiple complaints and states that he has had some health issues for months. He describes fati renata. He describes diarrhea for 3 months. He states he had his appendix removed in August 2023. He complains of a cough. Complains of an occasional pain in his right chest. He was seen by nurse practitioner in his PCP office today and they really did not do much for him so he comes here for evaluation. He also describes some sort of a pill or cyst on his scalp and he is not sure if that is the etiology of his symptoms. [facility] Medical History Anxiety Bipolar 1 disorder Chlamydia Depression Nausea, vomiting and diarrhea Home Medications ???Medication ???Instructions ???Recorded ???Last Taken ???Type oxycodone-acetaminophe n 5 mg-325 1 - 2 tab PO Q6H PRN pain 3 days 08/28/23 Unknown Rx mg tablet #14 tabs pantoprazole 40 mg tablet,delayed 40 mg PO DAILY #30 tabs 08/28/23 Unknown Rx release Allergy/AdvReac Type Severity Reaction Status Date / Time No Known Allergies Allergy Verified 03/23/24 16:51 Surgical History S/P laparoscopic appendectomy Social History (Updated 08/29/23 @ 16:[address] David Houston MD) household members: family Smoking Status: Current every day smoker tobacco type: cigarettes and e-cigarettes ROS ROS ED Review of Systems ROS Unobtainable: other Constitutional Constitutional ED: Reports lethargy; Denies chills, fever(s), sweats or weight loss Eyes Eyes: Denies blurry vision, change in vision or diplopia ENT ENT ED: Denies rhinorrhea or sore throat Cardiovascular Cardiovascular: Reports chest pain; Denies orthopnea or racing heartbeat Respiratory/Chest Respiratory/Chest: Reports cough; Denies dyspnea, dyspnea on exertion, orthopnea or sputum Gastrointestinal Gastrointestinal: Reports diarrhea; Denies abdominal pain, nausea or vomiting Genitourinary Genitourinary ED: Denies dysuria, hematuria or urinary frequency Musculoskeletal Musculoskeletal: Denies arthralgias, back pain, myalgias or neck pain Integumentary Denies abscess, Abrasions or rash Neurologic Neurologic: Denies headache(s) or weakness Psychiatric Psychiatric: Denies anxiety, depression or suicidal thoughts Endocrine Endocrinology: Denies polydipsia, polyphagia or polyuria Hematologic/Lymphatic Hematologic/Lymphatic: Denies easy bleeding, easy bruising or lymphadenopathy Allergic/Immunologic Allergic/Immunologic ED: Denies mouth swelling, tongue swelling or urticaria EXAM Physical Exam Const Vital Signs: 03/23/24 16:51 03/23/24 18:33 Temperature 97 F L Temperature Source Temporal Pulse Rate 99 74 Respiratory Rate 16 16 Blood Pressure 148/97 H 147/88 H Blood Pressure Mean 114 107 Pulse Ox 98 98 Oxygen Delivery Method Room Air Room Air Positive well nourished and well developed General Appearance ED: well developed and NAD HEENT Reports TM's clear and moist mucous membranes HEENT Narrative: Small scalp cyst underneath the skin and left parietal with no fluctuance and RN no erythema no evidence for infection. normocephalic and atraumatic; Negative for trauma or tenderness Tympanic Membrane ED: Yes TM's clear Eyes PERRL and EOMs intact bilaterally General Eye ED: Negative for pale conjunctiva or scleral icterus Neck no lymphadenopathy, supple and no JVD General: Negative for tenderness Chest Wall inspection of chest normal and palpation of chest normal Chest: Negative for tenderness Resp normal respiratory effort and clear to auscultation bilaterally Effort and Inspection: Negative for respiratory distress or pain with movement Auscultation: Negative for rhonchi, wheezes or diminished lung sounds Cardio regular rate, regular rhythm, S1 normal heart sound, S2 normal heart sound and no murmurs Peripheral Pulses: pulses 2+ throughout GI normal to inspection, nondistended, normoactive bowel sounds, soft to palpation, non-tender, non- distended and no masses Back/Spine no CVA tenderness and no thoracic nor lumbar tenderness Extremity normal to inspection General Extremety ED: Negative for edema General Extremity: Negative for edema Neuro o (more content not included)... Normal [facility] STREP A MOLECULAR (POC)on Procedural Control Valid [facility] Strep A (POCT) Negative Negative [facility] Jonathan 03-20-2024 CNPN Telephone (FAMPWS) CHIALLEN ORTIZ ([id number]) 1995 M Date Time Provider Department 03/20/24 CHASIDY ALFORD During your visit today, we recorded the following information about you: Edith Webber RN 03/20/2024 1:28 PM Signed Patient reports he has what he thinks is a cyst above his left ear- on side of head, for 3 months. He thought it was a pimple and tried to pop it but couldn't. Reports it is under the skin and he is able to move it around. Patient reports he got a hair cut and the language and literature division chair told him it could be a cyst and to get it checked out. Reports it didn't bother the bump for language and literature division chair to shave over it. Reports it has gotten bigger recently. Reports he has been getting headaches, not bad ones, and losing his appetite. No fever. Scheduled appt with pcp on Saturday. Patient agreeable to ER if cyst becomes worse before Saturday appt. Chasidy Alford MD 03/21/2024 7:59 AM Signed Agree. Allergies As of Date: 03/20/2024 Noted Allergy Reaction DUST MITES 01/25/2015 16 - Unknown Comments: tested at the pool cleaner MOLD 01/25/2015 16 - Unknown Comments: tested at the pool cleaner MUCINEX SEVERE CONGEST-COUGH (PHE*07/31/2021 4 - Hives Date Reviewed: 07/17/2023 Reviewed by: Melony Stewart MA - Fully Assessed Reason for Visit: Cyst above left ear [Other] Prescriptions as of 03/24/2024 - fluticasone (FLONASE) 50 mcg/actuation nasal spray Use 2 Sprays in each nostril once daily. Rinse mouth after use. - QUEtiapine (SEROQUEL) 100 mg tablet Take 100 mg by mouth daily at bedtime. 150 mg ER daily at HS only - divalproex DR (DEPAKOTE) 500 mg EC tablet Take 750 mg by mouth twice daily. 1 tablet twice daily Problem List As Of Date 03/20/2024 Noted Resolved Seizure-like activity (HCC) [R56.9] 06/16/2019 Encounter Status:Closed by Edith WEBBER on 03/24/24 Normal [facility] STREP A MOLECULAR (POC)on Procedural Control Valid [facility] Strep A (POCT) Negative Negative [facility] 2019 CORONAVIRUSon SARS-CoV-2 (COVID-19) RNA ALFREDITO+probe Ql (Resp) Not detected See comment [facility] XR FOOT GENERAL 3V AP/LAT/OB L LEFTon 01-14-2023 [facility] XR Foot - left AP and Latera l and obliqueon 01-14-2023 IMPRESSION: Negative left foot. Belt Weaver: PSCB Transcribe Date/Time: Jan 14 2023 6:34P Dictated by : BEHZAD LEE MD This examination was interpreted and the report reviewed and electronically signed by: BEHZAD LEE MD on Jan 14 2023 6:34PM [facility] [[email or web address]] DIVISION OF RADIOLOGY * * *Final Report* * * DATE OF EXAM: Jan 14 2023 6:14PM WOX [id number] - XR FOOT 3V AP/LAT/OBL LT / PROCEDURE REASON: Puncture wound of left foot, initial encounter * * * * Physician Interpretation * * * * LEFT FOOT X-RAY SERIES CLINICAL HISTORY: Puncture wound TECHNIQUE: AP, lateral and oblique views. COMPARISON: None available. RESULT: No fracture or malalignment. Joint spaces and articular surfaces are preserved. No foreign body DIVISION OF RADIOLOGY Provider, [facility] - 01/14/2023 * * *Final Report* * * DATE OF EXAM: Jan 14 2023 6:14PM WOX [id number] - XR FOOT 3V AP/LAT/OBL LT / PROCEDURE REASON: Puncture wound of left foot, initial encounter * * * * Physician Interpretation * * * * LEFT FOOT X-RAY SERIES CLINICAL HISTORY: Puncture wound TECHNIQUE: AP, lateral and oblique views. COMPARISON: None available. RESULT: No fracture or malalignment. Joint spaces and articular surfaces are preserved. No foreign body IMPRESSION IMPRESSION: Negative left foot. Belt Weaver: PSCB Transcribe Date/Time: Jan 14 2023 6:34P Dictated by : BEHZAD LEE MD This examination was interpreted and the report reviewed and electronically signed by: BEHZAD LEE MD on Jan 14 2023 6:34PM EST [facility] Radiology Study observation (narrative) [facility] XR Foot - left AP and Latera l and obliqueOrdered By: [facility] Provider on 01-14-2023 [facility] UA DIP, URINE (POC)on 2022 BILIRUBIN UA (POCT) Negative Negative [facility] CLARITY UA (POCT) Clear [facility] COLOR UA (POCT) Yellow [facility] GLUCOSE UA (POCT) Negative Negative mg/dL [facility] HEMOGLOBIN/BLOOD UA (POCT) Negative Negative [facility] KETONE UA (POCT) Negative Negative mg/dL [facility] LEUKOCYTES UA (POCT) Negative Negative [facility] NITRITE UA (POCT) Negative Negative [facility] PH UA (POCT) 6.5 4.5 - 8.0 [facility] Protein Ql (U) Negative Negative mg/dL [facility] SPECIFIC GRAVITY UA (POCT) 1.020 1.005 - 1.030 [facility] UROBILINOGEN UA (POCT) 0.2 E.U./dL Normal E.U./dL [facility] STREP A MOLECULAR (POC)on Procedural Control Valid [facility] Strep A (POCT) Negative Negative [facility] UA DIP, URINE (POC)on 2021 BILIRUBIN UA (POCT) Negative Negative [facility] CLARITY UA (POCT) Clear [facility] COLOR UA (POCT) Yellow [facility] GLUCOSE UA (POCT) Negative Negative mg/dL [facility] HEMOGLOBIN/BLOOD UA (POCT) Negative Negative [facility] KETONE UA (POCT) Negative Negative mg/dL [facility] LEUKOCYTES UA (POCT) Negative Negative [facility] NITRITE UA (POCT) Negative Negative [facility] PH UA (POCT) 7.0 4.5 - 8.0 [facility] Protein Ql (U) Negative Negative mg/dL [facility] SPECIFIC GRAVITY UA (POCT) 1.020 1.005 - 1.030 [facility] UROBILINOGEN UA (POCT) 0.2 E.U./dL Normal E.U./dL [facility] XR Abdomen Supine and Uprigh ton 11-20-2021 IMPRESSION: No significant finding. Belt Weaver: STAR Transcribe Date/Time: Nov 20 2021 4:20P Dictated by : ARELI AMEZCUA MD This examination was interpreted and the report reviewed and electronically signed by: ARELI AMEZCUA MD on Nov 20 2021 4:21PM [facility] [[email or web address]] DIVISION OF RADIOLOGY * * *Final Report* * * DATE OF EXAM: Nov 20 2021 3:15PM WOX [id number] - XR ABDOMEN 1V SUPINE / PROCEDURE REASON: Abdominal pain, unspecified abdominal location * * * * Physician Interpretation * * * * KUB: INDICATION: Abdominal pain, unspecified abdominal location TECHNIQUE: XR ABDOMEN 1V SUPINE COMPARISON: FINDINGS: No radiopaque urinary tract calculi are seen. The bowel gas pattern is nonspecific. No acute osseous process is evident. DIVISION OF RADIOLOGY Provider, Wiliam Dillard [facility] - 11/20/2021 * * *Final Report* * * DATE OF EXAM: Nov 20 2021 3:15PM WOX [id number] - XR ABDOMEN 1V SUPINE / PROCEDURE REASON: Abdominal pain, unspecified abdominal location * * * * Physician Interpretation * * * * KUB: INDICATION: Abdominal pain, unspecified abdominal location TECHNIQUE: XR ABDOMEN 1V SUPINE COMPARISON: FINDINGS: No radiopaque urinary tract calculi are seen. The bowel gas pattern is nonspecific. No acute osseous process is evident. IMPRESSION IMPRESSION: No significant finding. Belt Weaver: STAR Transcribe Date/Time: Nov 20 2021 4:20P Dictated by : ARELI AMEZCUA MD This examination was interpreted and the report reviewed and electronically signed by: ARELI AMEZCUA MD on Nov 20 2021 4:21PM [facility] Radiology Study observation (narrative) [facility] XR Abdomen Supine and Uprigh tOrdered By: [facility] Provider on 11-20-2021 [facility] Roderick 11-15-2021 ALT [Catalytic activity/Vol] 18 U/L Normal 10-54 [facility] Reference Lab Comment on above: Performed By: #### A ST, PLTCT, VPA, ALT #### [facility] Laboratories Routine Lab [address] [place], [place] [address] Diego 11-15-2021 AST [Catalytic activity/Vol] 23 U/L Normal 14-40 [facility] Reference Lab Comment on above: Performed By: #### A ST, PLTCT, VPA, ALT #### [facility] [employer] Routine Lab [address] [place], [place] [address] Ammoniaon 11-15-2021 Ammonia Normal 16-60 [facility] Reference Lab Comment on above: Result Comment: Unab le to assay. No specimen received. BF Account Credited Performed By: #### A ST, PLTCT, VPA, ALT #### [facility] [employer] Routine Lab [address] [place], [place] [address] Platelet Counton 11-15-2021 Platelets (Bld) [#/Vol] 186 10*3/uL Normal 150-400 [facility] Reference Lab Comment on above: Performed By: #### A ST, PLTCT, VPA, ALT #### [facility] [employer] Routine Lab [address] [place], [place] [address] Valproic Acidon 11-15-2021 Valproic Acid 55.6 ug/mL Normal 50-100 [facility] Reference Lab Comment on above: Performed By: #### A ST, PLTCT, VPA, ALT #### [facility] [employer] Routine Lab [address] [place], [place] [id number] XR Chest PA and Lateralon IMPRESSION: No active disease Belt Weaver: STAR Transcribe Date/Time: Aug 07 2021 5:22P Dictated by : JA WHALEN MD This examination was interpreted and the report reviewed and electronically signed by: JA WHALEN MD on Aug 07 2021 5:23PM [facility] [[email or web address]] DIVISION OF RADIOLOGY * * *Final Report* * * DATE OF EXAM: Aug 07 2021 5:21PM WOX [id number] - XR CHEST 2V FRONTAL/LAT / PROCEDURE REASON: multiple diagnoses * * * * Physician Interpretation * * * * EXAMINATION: CHEST RADIOGRAPH (2 VIEW FRONTAL & LATERAL) CLINICAL HISTORY: Cough Hemoptysis MQ: XC2_6 EXAM DATE/TIME: 08/07/2021 5:21 PM COMPARISON: 07/31/2021 RESULT: Lines, tubes, and devices: None. Lungs and pleura: No consolidation. No lung mass. No pleural effusion. No pneumothorax. Cardiomediastinal silhouette: Normal cardiomediastinal silhouette. Bones and soft tissues: Unremarkable. DIVISION OF RADIOLOGY Provider, Wiliam dodd [place] - 08/07/2021 * * *Final Report* * * DATE OF EXAM: Aug 07 2021 5:21PM WOX 5291 - XR CHEST 2V FRONTAL/LAT / PROCEDURE REASON: multiple diagnoses * * * * Physician Interpretation * * * * EXAMINATION: CHEST RADIOGRAPH (2 VIEW FRONTAL & LATERAL) CLINICAL HISTORY: Cough Hemoptysis MQ: XC2_6 EXAM DATE/TIME: 08/07/2021 5:21 PM COMPARISON: 07/31/2021 RESULT: Lines, tubes, and devices: None. Lungs and pleura: No consolidation. No lung mass. No pleural effusion. No pneumothorax. Cardiomediastinal silhouette: Normal cardiomediastinal silhouette. Bones and soft tissues: Unremarkable. IMPRESSION IMPRESSION: No active disease Belt Weaver: STAR Transcribe Date/Time: Aug 07 2021 5:22P Dictated by : JA WHALEN MD This examination was interpreted and the report reviewed and electronically signed by: JA WHALEN MD on Aug 07 2021 5:23PM EST [facility] Radiology Study observation (narrative) [facility] XR Chest PA and LateralOrder ed By: [facility] Provider on 08-07-2021 [facility] XR Chest PA and Lateralon IMPRESSION: No acute radiographic abnormality. Belt Weaver: [facility] Transcribe Date/Time: Jul 31 2021 2:06P Dictated by : CUONG GREENFIELD MD This examination was interpreted and the report reviewed and electronically signed by: CUONG GREENFIELD MD on Jul 31 2021 2:07PM EST DIVISION OF RADIOLOGY * * *Final Report* * * DATE OF EXAM: Jul 31 2021 2:04PM WOX 5291 - XR CHEST 2V FRONTAL/LAT / PROCEDURE REASON: multiple diagnoses * * * * Physician Interpretation * * * * EXAMINATION: CHEST RADIOGRAPH (2 VIEW FRONTAL & LATERAL) CLINICAL HISTORY: Cough Fever MQ: XC2_6 EXAM DATE/TIME: 07/31/2021 2:04 PM COMPARISON: May 26, 2018 RESULT: Lines, tubes, and devices: None. Lungs and pleura: No consolidation. No lung mass. No pleural effusion. No pneumothorax. Cardiomediastinal silhouette: Normal cardiomediastinal silhouette. Bones and soft tissues: Unremarkable. DIVISION OF RADIOLOGY Provider, Wiliam Dillard [facility] - 07/31/2021 * * *Final Report* * * DATE OF EXAM: Jul 31 2021 2:04PM WOX 5291 - XR CHEST 2V FRONTAL/LAT / PROCEDURE REASON: multiple diagnoses * * * * Physician Interpretation * * * * EXAMINATION: CHEST RADIOGRAPH (2 VIEW FRONTAL & LATERAL) CLINICAL HISTORY: Cough Fever MQ: XC2_6 EXAM DATE/TIME: 07/31/2021 2:04 PM COMPARISON: May 26, 2018 RESULT: Lines, tubes, and devices: None. Lungs and pleura: No consolidation. No lung mass. No pleural effusion. No pneumothorax. Cardiomediastinal silhouette: Normal cardiomediastinal silhouette. Bones and soft tissues: Unremarkable. IMPRESSION IMPRESSION: No acute radiographic abnormality. Belt Weaver: [facility] Transcribe Date/Time: Jul 31 2021 2:06P Dictated by : CUONG GREENFIELD MD This examination was interpreted and the report reviewed and electronically signed by: CUONG GREENFIELD MD on Jul 31 2021 2:07PM EST [facility] Radiology Study observation (narrative) [facility] XR Chest PA and LateralOrder ed By: [facility] Provider on 07-31-2021 [facility] Vital Signs Date Time Vital Sign Value Performing Clinician Anum lowery 12-22-2024 13:52-0400 Body mass index (BMI) [Ratio] 22.79 kg/m2 Miguel Hill APRN.CNP Work Phone: [facility] 12-22-2024 13:52-0400 Body weight 68 kg Miguel Hill APRN.CNP Work Phone: [facility] 12-22-2024 13:52-0400 Diastolic blood pressure 73 mm[Hg] Miguel Hill APRN.CNP Work Phone: [facility] 12-22-2024 13:52-0400 Heart rate 79 /min Miguel Hill APRN.CNP Work Phone: [facility] 12-22-2024 13:52-0400 Systolic blood pressure 127 mm[Hg] Miguel Hill APRN.WOODWORKER Work Phone: [facility] 12-18-2024 19:43-0400 Body mass index (BMI) [Ratio] 22.79 kg/m2 Krislyn Aberegg PA Work Phone: [facility] 12-18-2024 19:43-0400 Body temperature 98.01 [degF] Krislyn Aberegg PA Work Phone: [facility] 12-18-2024 19:43-0400 Body weight 68 kg Krislyn Aberegg PA Work Phone: [facility] 12-18-2024 19:43-0400 Diastolic blood pressure 79 mm[Hg] Krislyn Aberegg PA Work Phone: [facility] 12-18-2024 19:43-0400 Heart rate 93 /min Krislyn Aberegg PA Work Phone: [facility] 12-18-2024 19:43-0400 Respiratory rate 20 /min Krislyn Aberegg PA Work Phone: [facility] 12-18-2024 19:43-0400 SaO2% (BldA) [Mass fraction] 98 % Krislyn Aberegg PA Work Phone: [facility] 12-18-2024 19:43-0400 Systolic blood pressure 130 mm[Hg] Krislyn Aberegg PA Work Phone: [facility] 10-03-2024 13:16-0500 Body mass index (BMI) [Ratio] 23.3 kg/m2 Felicia Hays APRN.WOODWORKER Work Phone: [facility] 10-03-2024 13:16-0500 Body temperature 98.4 [degF] Felicia Hays APRN.WOODWORKER Work Phone: [facility] 10-03-2024 13:16-0500 Body weight 69.5 kg Felicia Callow MICA BUILDER.WOODWORKER Work Phone: [facility] 10-03-2024 13:16-0500 Diastolic blood pressure 64 mm[Hg] Felicia Callow MICA BUILDER.WOODWORKER Work Phone: [facility] 10-03-2024 13:16-0500 Heart rate 82 /min Felicia Callow MICA BUILDER.WOODWORKER Work Phone: [facility] 10-03-2024 13:16-0500 Respiratory rate 16 /min Felicia Callow MICA BUILDER.WOODWORKER Work Phone: [facility] 10-03-2024 13:16-0500 SaO2% (BldA) [Mass fraction] 98 % ow MICA BUILDER.WOODWORKER Work Phone: [facility] 10-03-2024 13:16-0500 Systolic blood pressure 108 mm[Hg] Felicia Callow MICA BUILDER.WOODWORKER Work Phone: [facility] 09-11-2024 14:26-0500 Body mass index (BMI) [Ratio] 22.86 kg/m2 Anton Vail MD Work Phone: [facility] 09-11-2024 14:26-0500 Body temperature 97.9 [degF] Anton Vail MD Work Phone: [facility] 09-11-2024 14:260500 Body weight 68.2 kg Anton Vail MD Work Phone: [facility] 09-11-2024 14:26-0500 Diastolic blood pressure 72 mm[Hg] Anton Vail MD Work Phone: [facility] 09-11-2024 14:26-0500 Heart rate 80 /min Anton Vail MD Work Phone: [facility] 09-11-2024 14:26-0500 Respiratory rate 16 /min Anton Vail MD Work Phone: [facility] 09-11-2024 14:26-0500 SaO2% (BldA) [Mass fraction] 97 % Anton Vail MD Work Phone: [facility] 09-11-2024 14:26-0500 Systolic blood pressure 110 mm[Hg] Anton Vail MD Work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
--- NOTE | 2025-07-03 01:39 | ED.VIS.DENTA ---
HPI History of Present Illness Chief Complaint: Dental Informant: patient Narrative Narrative: Patient is a 29-year-old male presenting with severe dental pain. - Reports severe pain in a lower tooth that has been emerging since last week. - Describes pain as 10/10 - Associated with bleeding in the mornings over the past few days. - Has tried various vrtg-rgm-[id number] pain relief methods, including Orajel and ibuprofen, without relief. PFSH PFS Medical History Seizures Bipolar 1 disorder Anxiety Nausea, vomiting and diarrhea Chlamydia Depression Home Medications ?Medication ?Instructions ?Recorded ?Last Taken ?Type amoxicillin 500 mg tablet 500 mg PO TID #30 tabs 07/03/25 Unknown Rx hydrocodone-acetaminophen 5-325mg 1 tab PO Q6H PRN PRN Pain 3 days 07/03/25 Unknown Rx 5mg-325mg #10 TABLETS Allergy/AdvReac Type Severity Reaction Status Date / Time gluten Allergy Intermediate Abd Verified 07/03/25 01:09 cramps/diarrhea guaifenesin (From Mucinex) Allergy Hives Verified 07/03/25 01:09 Surgical History S/P laparoscopic appendectomy Social History household members: family Smoking Status: Current every day smoker tobacco type: cigarettes and e-cigarettes ROS ROS ED Constitutional Constitutional ED: Denies chills or fever(s) Eyes Eyes: Denies change in vision or double vision ENT ENT ED: Reports dental pain; Denies sinus pain or throat swelling Cardiovascular Cardiovascular: Denies chest pain or palpitations Respiratory/Chest Respiratory/Chest: Denies cough or dyspnea Integumentary Denies abscess or rash Neurologic Neurologic: Denies headache(s), paresthesias or weakness EXAM Physical Exam Const Vital Signs: 07/03/25 01:04 Temperature 97.6 F L Temperature Source Oral Pulse Rate 67 Respiratory Rate 16 Blood Pressure 137/90 H Blood Pressure Mean 105 Pulse Ox 99 Oxygen Delivery Method Room Air Positive well nourished and well developed General Appearance ED: well developed and NAD HEENT HEENT Narrative: Eruption of tooth #32 on lower jaw, no visible abscess. Face and Sinus: sinuses nontender Throat: posterior oropharynx normal Eyes PERRL and EOMs intact bilaterally Neck no lymphadenopathy and supple Lymph Lymphatic: no lymphadenopathy noted Resp normal respiratory effort Neuro oriented x3 and CN's II-XII intact bilaterally Sensorium / Orientation: alert Gait (Neuro): normal gait Psych mental status grossly normal and thought process normal Skin no rashes or lesions noted and no wounds MDM MDM MDM Narrative Medical decision making narrative: He has a benign exam overall. There is very mild erythema over the gingiva of tooth #32, which appears to be partially erupted through the gingiva, but it is not fluctuant or indicative of an abscess. There is no discharge or bleeding. He has no trismus, and the floor of the mouth is soft with no tongue elevation. There is no external swelling or asymmetry and no cervical lymphadenopathy. He may be experiencing a significant amount of pain due to an early infection, although the exam is fairly unremarkable and underwhelming. After reviewing his OARS report, which is unremarkable except for a remote oxycodone prescription, I will prescribe antibiotics and some [place]. He will follow up with the dentist as soon as possible, and he is comfortable with this plan. Discharge Plan Triage Chief Complaint: Dental ED Provider: Jay Jay Chapman Dx/Rx/DC Orders Clinical Impression: Gingivitis, Odontalgia Instructions: ED Dental Pain Prescriptions: New hydrocodone-acetaminophen 5-325 mg tablet 1 tab PO Q6H PRN PRN (Reason: Pain) 3 Days Qty: 10 0RF amoxicillin 500 mg tablet 500 mg PO TID Qty: 30 0RF Primary Care Provider: Bib Alford Referrals: Bib Alford MD [Primary Care Provider, Family Practice] Dentist,Your [STAFF PHYSICIAN, Dentistry] - As soon as possible Activity Restrictions/Additional Instructions: - Start the prescribed antibiotic right away and complete the full course to treat the early infection around the erupting bottom tooth. - Take [place] (hydrocodone-acetaminophen) for pain relief as directed; use it only as needed for severe discomfort. - Schedule an appointment with your dentist as soon as possible for evaluation and management of the partially erupted tooth. Print Language: Mongolian Disposition Disposition: Home, Self Care
[2025-07-03] MEDS: AMOXICILLIN 500 MG CAPSULE PO (01:44)
[2025-07-03] MEDS: HYDROcodone Bitartrate/Apap 5/325 Tablet PO (01:44)
[2025-07-03 01:45] VITALS: BP 136/85; PULSE 82; RESP 16; TEMP 36.7; O2SAT 98
== END 2025-07-03 01:48 | disposition home or self-care (01) ==
PROVIDERS: Emergency Provider Emergency Medicine; PCP Family Medicine; Visit Provider Emergency Medicine
DX: K05.10 Chronic gingivitis, plaque induced (principal); K08.89 Other specified disorders of teeth and supporting structures; F17.210 Nicotine dependence, cigarettes, uncomplicated
CPT/HCPCS: 99283